=== PATIENT | female | born 1940 | race Caucasian/White ===

== ENCOUNTER 2017-01-06 00:30 | Inpatient (IN) | payer MEDICARE, BC ==
[2017-01-06] MEDS ORDERED: IPRATROPIUM-ALBUTEROL 3 ML NEB INHALATION STA (00:40)
--- NOTE | 2017-01-06 00:49 | ED ---
SOB HPI - General Chief Complaint: Shortness of Breath Stated Complaint: JADEN Time Seen by Provider: 01/06/17 00:35 Source: patient Mode of arrival: EMS Limitations: physical limitation - History of Present Illness Initial Comments: This patient is a 76-year-old woman with history of COPD, who presents with worsening of her respiratory status over the past approximately 3 days. Patient 's family also states that she seems to be at times hallucinating, holding conversations with people who are not in the room. The patient complains of wheezing, dyspnea. She denies having fevers or chills. No chest pain. No change in her baseline cough. No change in bowel movements or urination. no leg pain or swelling. The patient's family does note that her appetite has been decreased over the past week or so. MD Complaint: shortness of breath Onset/Timin -: days(s) Consistency: constant Improves With: nothing Worsens With: nothing Known History Of: COPD Treatments Prior to Arrival: oxygen - Related Data Home Oxygen Therapy: Yes Home Oxygen Amount: 2 Liters Home Medications Medication Instructions Recorded Confirmed Budesonide/Formoterol Fumarate 2 puff INHALATION RT-BID 11/25/15 01/14/16 [Symbicort 80-4.5 Mcg Inhaler] Albuterol Sulfate [Proair Hfa] 2 puff INHALATION RT-Q4H PRN 01/14/16 01/14/16 Tiotropium 18 Mcg/Puff [Spiriva] 1 cap INHALATION RT-DAILY 01/14/16 01/14/16 Previous Rx's Medication Instructions Recorded Azithromycin [Zithromax Tri-Cristi] 500 mg PO DAILY #3 tab 01/15/16 Valsartan [Diovan] 240 mg PO DAILY #30 tab 01/15/16 predniSONE 10 mg PO DAILY #40 tab 01/15/16 Allergies Allergy/AdvReac Type Severity Reaction Status Date / Time codeine AdvReac Nausea Verified 01/06/17 00:32 Review of Systems ROS Statement: Those systems with pertinent positive or pertinent negative responses have been documented in the HPI. ROS Other: All systems not noted in ROS Statement are negative. Constitutional: Reports: weakness. Denies: fever, chills Respiratory: Reports: cough (Baseline), dyspnea Cardiovascular: Denies: chest pain, palpitations, orthopnea, edema, syncope Gastrointestinal: Denies: abdominal pain, vomiting, diarrhea Genitourinary: Denies: dysuria, hematuria Musculoskeletal: Denies: back pain Skin: Denies: rash Neurological: Reports: weakness (Generalized), confusion. Denies: headache Past Medical History Past Medical History: Asthma, COPD, Hypertension Additional Past Medical History / Comment(s): BRONCHITIS, HOME O2 3 LITERS N/C, PNE VACCINE AFTER AGE 65-NOT SURE OF DATE. History of Any Multi-Drug Resistant Organisms: None Reported Past Surgical History: Orthopedic Surgery Additional Past Surgical History / Comment(s): RT ROTATOR CUFF Past Anesthesia/Blood Transfusion Reactions: No Reported Reaction Past Psychological History: No Psychological Hx Reported Smoking Status: Former smoker Past Alcohol Use History: None Reported Past Drug Use History: None Reported - Past Family History Mother Family Medical History: CVA/TIA Additional Family Medical History / Comment(s): AT AGE 88 Father Family Medical History: Myocardial Infarction ([place]) Additional Family Medical History / Comment(s): OF [place] AT AGE 52 General Exam Limitations: physical limitation General appearance: alert, in distress (Patient in mild respiratory distress, being And using accessory muscles), cachectic Head exam: Present: atraumatic, normocephalic Eye exam: Present: normal appearance. Absent: scleral icterus, conjunctival injection ENT exam: Present: mucous membranes dry Neck exam: Present: normal inspection Respiratory exam: Present: wheezes, accessory muscle use, decreased breath sounds, prolonged expiratory. Absent: rales, rhonchi, stridor, chest wall tenderness Cardiovascular Exam: Present: normal rhythm, tachycardia (Rate approximately 108 at my exam), normal heart sounds. Absent: systolic murmur, diastolic murmur , rubs, gallop GI/Abdominal exam: Present: soft. Absent: distended, tenderness, guarding, rebound Extremities exam: Present: normal inspection, normal capillary refill. Absent: pedal edema, calf tenderness Neurological exam: Present: alert Skin exam: Present: warm, dry, intact, normal color. Absent: rash Course Vital Signs 01/06/17 01/06/17 01/06/17 00:33 00:47 00:57 Temperature 99.2 F Pulse Rate 115 H 108 H 112 H Respiratory 32 H Rate Blood Pressure 164/73 O2 Sat by Pulse 91 L Oximetry 01/06/17 01:35 Temperature Pulse Rate 112 H Respiratory 28 H Rate Blood Pressure 163/73 O2 Sat by Pulse 98 Oximetry Medical Decision Making - Lab Data Result diagrams: 01/06/17 00:48 01/06/17 00:48 Lab Results 01/06/17 01/06/17 01/06/17 Range/Units 00:48 00:48 00:48 WBC 5.3 (3.8-10.6) k/uL RBC 3.53 L (3.80-5.40) m/uL Hgb 11.0 L (11.4-16.0) gm/dL Hct 36.2 (34.0-46.0) % MCV 102.4 H (80.0-100.0) fL MCH 31.0 (25.0-35.0) pg MCHC 30.3 L (31.0-37.0) g/dL RDW 13.7 (11.5-15.5) % Plt Count 457 H (150-450) k/uL Neutrophils % 83 % Lymphocytes % 7 % Monocytes % 9 % Eosinophils % 0 % Basophils % 0 % Neutrophils # 4.4 (1.3-7.7) k/uL Lymphocytes # 0.4 L (1.0-4.8) k/uL Monocytes # 0.5 (0-1.0) k/uL Eosinophils # 0.0 (0-0.7) k/uL Basophils # 0.0 (0-0.2) k/uL Macrocytosis Slight PT 9.8 (9.0-12.0) sec INR 1.0 (<1.2) APTT 23.1 (22.0-30.0) sec D-Dimer (<0.60) mg/L FEU VBG pH (7.31-7.41) VBG pCO2 (37-51) mmHg VBG HCO3 (24-28) mmol/L Sodium 141 (137-145) mmol/L Potassium 4.0 (3.5-5.1) mmol/L Chloride 99 (98-107) mmol/L Carbon Dioxide 29 (22-30) mmol/L Anion Gap 13 mmol/L BUN 23 H (7-17) mg/dL Creatinine 0.50 L (0.52-1.04) mg/dL Est GFR (MDRD) Af Amer >60 (>60 ml/min/1.73 sqM) Est GFR (MDRD) Non-Af >60 (>60 ml/min/1.73 sqM) Glucose 308 H (74-99) mg/dL Calcium 9.7 (8.4-10.2) mg/dL Total Bilirubin 0.4 (0.2-1.3) mg/dL AST 24 (14-36) U/L ALT 36 (9-52) U/L Alkaline Phosphatase 116 (38-126) U/L Total Creatine Kinase (30-135) U/L CK-MB (CK-2) (0.0-2.4) ng/mL CK-MB (CK-2) Rel Index Troponin I (0.000-0.034) ng/mL NT-Pro-B Natriuret Pep pg/mL Total Protein 6.7 (6.3-8.2) g/dL Albumin 3.7 (3.5-5.0) g/dL 01/06/17 01/06/17 01/06/17 Range/Units 00:48 00:48 00:48 WBC (3.8-10.6) k/uL RBC (3.80-5.40) m/uL Hgb (11.4-16.0) gm/dL Hct (34.0-46.0) % MCV (80.0-100.0) fL MCH (25.0-35.0) pg MCHC (31.0-37.0) g/dL RDW (11.5-15.5) % Plt Count (150-450) k/uL Neutrophils % % Lymphocytes % % Monocytes % % Eosinophils % % Basophils % % Neutrophils # (1.3-7.7) k/uL Lymphocytes # (1.0-4.8) k/uL Monocytes # (0-1.0) k/uL Eosinophils # (0-0.7) k/uL Basophils # (0-0.2) k/uL Macrocytosis PT (9.0-12.0) sec INR (<1.2) APTT (22.0-30.0) sec D-Dimer 2.45 H (<0.60) mg/L FEU VBG pH 7.30 L (7.31-7.41) VBG pCO2 67 H (37-51) mmHg VBG HCO3 32 H (24-28) mmol/L Sodium (137-145) mmol/L Potassium (3.5-5.1) mmol/L Chloride (98-107) mmol/L Carbon Dioxide (22-30) mmol/L Anion Gap mmol/L BUN (7-17) mg/dL Creatinine (0.52-1.04) mg/dL Est GFR (MDRD) Af Amer (>60 ml/min/1.73 sqM) Est GFR (MDRD) Non-Af (>60 ml/min/1.73 sqM) Glucose (74-99) mg/dL Calcium (8.4-10.2) mg/dL Total Bilirubin (0.2-1.3) mg/dL AST (14-36) U/L ALT (9-52) U/L Alkaline Phosphatase (38-126) U/L Total Creatine Kinase 68 (30-135) U/L CK-MB (CK-2) 2.9 H* (0.0-2.4) ng/mL CK-MB (CK-2) Rel Index 4.3 Troponin I 0.039 H* (0.000-0.034) ng/mL NT-Pro-B Natriuret Pep pg/mL Total Protein (6.3-8.2) g/dL Albumin (3.5-5.0) g/dL 01/06/17 Range/Units 00:48 WBC (3.8-10.6) k/uL RBC (3.80-5.40) m/uL Hgb (11.4-16.0) gm/dL Hct (34.0-46.0) % MCV (80.0-100.0) fL MCH (25.0-35.0) pg MCHC (31.0-37.0) g/dL RDW (11.5-15.5) % Plt Count (150-450) k/uL Neutrophils % % Lymphocytes % % Monocytes % % Eosinophils % % Basophils % % Neutrophils # (1.3-7.7) k/uL Lymphocytes # (1.0-4.8) k/uL Monocytes # (0-1.0) k/uL Eosinophils # (0-0.7) k/uL Basophils # (0-0.2) k/uL Macrocytosis PT (9.0-12.0) sec INR (<1.2) APTT (22.0-30.0) sec D-Dimer (<0.60) mg/L FEU VBG pH (7.31-7.41) VBG pCO2 (37-51) mmHg VBG HCO3 (24-28) mmol/L Sodium (137-145) mmol/L Potassium (3.5-5.1) mmol/L Chloride (98-107) mmol/L Carbon Dioxide (22-30) mmol/L Anion Gap mmol/L BUN (7-17) mg/dL Creatinine (0.52-1.04) mg/dL Est GFR (MDRD) Af Amer (>60 ml/min/1.73 sqM) Est GFR (MDRD) Non-Af (>60 ml/min/1.73 sqM) Glucose (74-99) mg/dL Calcium (8.4-10.2) mg/dL Total Bilirubin (0.2-1.3) mg/dL AST (14-36) U/L ALT (9-52) U/L Alkaline Phosphatase (38-126) U/L Total Creatine Kinase (30-135) U/L CK-MB (CK-2) (0.0-2.4) ng/mL CK-MB (CK-2) Rel Index Troponin I (0.000-0.034) ng/mL NT-Pro-B Natriuret Pep 5500 pg/mL Total Protein (6.3-8.2) g/dL Albumin (3.5-5.0) g/dL - EKG Data -: EKG Interpreted by Nc EKG shows normal: sinus rhythm, axis (Normal), intervals (Normal) Rate: tachycardia (Rate approximately 112 bpm) Interpretation: nonspecific ST-T wave changes, other (Right atrial enlargement.) Disposition Clinical Impression: Acute exacerbation of chronic obstructive airways disease, Acute respiratory acidosis Disposition: ADMITTED IP TO THIS HOSP Condition: Poor Referrals: Joyce Benitez MD [Primary Care Provider] - 1-2 days
[2017-01-06] MEDS ORDERED: predniSONE 20 MG TAB PO STA (01:07)
[2017-01-06 01:22] LABS: VBG PH 7.3 (7.31-7.41)
[2017-01-06 01:35] LABS: ALT 36 U/L (9-52); AST 24 U/L (14-36); Alkaline Phosphatase 116 U/L (38-126); Anion Gap 13 mmol/L; Blood Urea Nitrogen 23 mg/dL (7-17); Calcium 9.7 mg/dL (8.4-10.2); Carbon Dioxide 29 mmol/L (22-30); Chloride 99 mmol/L (98-107); Glucose 308 mg/dL (74-99); Non-African American GFR(MDRD) >60 (>60 ml/min/1.73 sqM); Partial Thromboplastin Time 23.1 sec (22.0-30.0); Prothrombin Time 9.8 sec (9.0-12.0); Sodium 141 mmol/L (137-145); Total Bilirubin 0.4 mg/dL (0.2-1.3); Total Protein 6.7 g/dL (6.3-8.2)
[2017-01-06 01:39] LABS: Basophils % (A) 0 %; CH 32.6; Eosinophils % (A) 0 %; HCT 36.2 % (34.0-46.0); HDW 2.82; Luc % (Auto) 2; Lymphocytes # (A) 0.4 k/uL (1.0-4.8); Lymphocytes % (A) 7 %; MCHC 30.3 g/dL (31.0-37.0); MCV 102.4 fL (80.0-100.0); Macrocytosis Slight; Mean Platelet Volume 7.1; Monocytes # (A) 0.5 k/uL (0-1.0); Monocytes % (A) 9 %; Neutrophils # (A) 4.4 k/uL (1.3-7.7); Neutrophils % (A) 83 %; RBC 3.53 m/uL (3.80-5.40); RDW 13.7 % (11.5-15.5); WBC 5.3 k/uL (3.8-10.6); WBC (Perox) 5.41
[2017-01-06 02:01] LABS: Creatine Kinase MB 2.9 ng/mL (0.0-2.4); Troponin I 0.039 ng/mL (0.000-0.034)
--- NOTE | 2017-01-06 02:17 | XR ---
EXAM: XR Chest, 2 Views CLINICAL HISTORY: Reason: Pain TECHNIQUE: Frontal and lateral views of the chest. COMPARISON: 01/14/2016. FINDINGS: Lungs: Evidence of COPD is again seen. Mild peribronchial cuffing is seen with hazy interstitial markings suggesting mild pulmonary edema. Right basilar atelectasis and/or infiltrates. Pleural space: Probable tiny right pleural effusion. No pneumothorax. Heart: Unremarkable. No cardiomegaly. Mediastinum: Unremarkable. Bones/joints: Osseous structures are unchanged. Osteopenia suggested. Vasculature: Atherosclerotic vascular calcifications involving the aortic arch again seen. Tubes, lines and devices: Overlying monitor leads limited evaluation. IMPRESSION: 1. Evidence of COPD. 2. Mild peribronchial cuffing is with hazy interstitial markings suggesting mild pulmonary edema. 3. Probable tiny right pleural effusion. 4. Right basilar atelectasis and/or infiltrates.
[2017-01-06] MEDS ORDERED: RX INFO: IV CONTRAST WAS GIVEN 1 EACH MISC MISCELLANE PRN (02:20)
[2017-01-06] MEDS: SODIUM CHLORIDE 0.9% 1,000 ML IV SCH (03:08)
--- NOTE | 2017-01-06 03:27 | CT ---
EXAM: CT Angiography Chest With Intravenous Contrast CLINICAL HISTORY: Chest pain TECHNIQUE: Axial computed tomographic angiography images of the chest with intravenous contrast using pulmonary embolism protocol. DLP is 135.80 mGy-cm. This CT exam was performed using one or more of the following dose reduction techniques: automated exposure control, adjustment of the mA and/or kV according to patient size, and/or use of iterative reconstruction technique. MIP reconstructed images were created and reviewed. COMPARISON: No relevant prior studies available. FINDINGS: Pulmonary arteries: Unremarkable. No pulmonary embolism. Aorta: Moderate atherosclerotic vascular calcifications are seen involving the intrathoracic aorta. No thoracic aortic aneurysm. Lungs: Small consolidations with air bronchograms are seen predominantly in the periphery of the right lung concerning for multifocal pneumonia. Moderate emphysematous changes are seen with evidence of COPD. Mild bronchial wall thickening is suggested, which may represent inflammatory small airways disease. A 0.6 cm nodule is seen in the right lower lobe (series 4, image 96). Tiny nodular densities are seen in the periphery of the right lung in a tree-in-bud configuration, likely representing inflammatory versus infectious small airways disease. Dependent atelectasis is seen involving the right lower lobe. Subcentimeter calcified granuloma in the left upper lobe. Next Pleural space: Unremarkable. No significant effusion. No pneumothorax. Heart: Unremarkable. No cardiomegaly. No significant pericardial effusion. No evidence of RV dysfunction. Bones/joints: Degenerative changes. No acute fracture. No dislocation. Soft tissues: Unremarkable. Lymph nodes: Mildly enlarged mediastinal lymph nodes are seen, measuring up to 1.2 cm in short axis, likely reactive. Mildly prominent right hilar lymph nodes, measuring up to 1.1 cm in short axis, which are likely reactive. IMPRESSION: 1. No pulmonary embolism. 2. Small consolidations with air bronchograms predominantly in the periphery of the right lung concerning for multifocal pneumonia. Correlate clinically. Attention on short-term interval follow-up is recommended after treatment to assure resolution. 3. Moderate emphysema with evidence of COPD. 4. Mild bronchial wall thickening, which may represent inflammatory small airways disease. 5. Tiny nodular densities in the periphery of the right lung arranged in a tree-in-bud configuration, likely representing inflammatory versus infectious small airways disease. 6. A 0.6 cm nodule in the right lower lobe. For high-risk patients (smoking history or other known risk factors) initial follow-up chest CT at 6-12 months and if unchanged, 18-24 months. 7. Other findings, as above.
[2017-01-06] MEDS ORDERED: PIPERACILLIN-TAZOBACTAM 3.375 GM in DEXTROSE/WATER 1 50ML.BAG IVPB STA (04:04)
[2017-01-06] MEDS ORDERED: LEVOFLOXACIN 750 MG TAB PO STA (04:05)
[2017-01-06] MEDS: IPRATROPIUM-ALBUTEROL 3 ML NEB INHALATION PRN ×2 (04:41→07:40)
[2017-01-06 07:37] LABS: Glucose,Whole Blood 173 mg/dL (75-99)
[2017-01-06] MEDS: SYMBICORT 80-4.5 MCG INHALER INHALATION SCH ×2 (07:40→08:51)
[2017-01-06] MEDS: IPRATROPIUM-ALBUTEROL 3 ML NEB INHALATION SCH ×2 (07:47→11:17)
[2017-01-06] MEDS ORDERED: IPRATROPIUM 0.5 MG/2.5 ML NEBU INHALATION SCH (08:00)
[2017-01-06] MEDS: INSULIN LISPRO (humaLOG) 300 UNIT/3 ML VIAL SQ SCH ×4 (08:24→22:32)
[2017-01-06] MEDS: HEPARIN SODIUM,PORCINE 5,000 UNIT/ML 1 ML VIAL SQ SCH ×3 (08:25→23:18)
[2017-01-06] MEDS ORDERED: VALSARTAN 80 MG TAB PO SCH (09:00)
[2017-01-06] MEDS ORDERED: predniSONE 20 MG TAB PO SCH (09:00)
[2017-01-06] MEDS: methylPREDNISolone SOD SUCCI 125 MG/2 ML VIAL IV SCH ×4 (09:09→23:18)
--- NOTE | 2017-01-06 11:06 | P.CNPUL ---
History of Present Illness Consult date: 01/06/17 Reason for consult: dyspnea, cough, COPD, hypoxemia, pneumonia, abnormal CXR/CT Chief complaint: Shortness of breath History of present illness: Consult dated 01/06/2017 76-year-old female with history of COPD. She presented to the emergency department with complaints of increasing respiratory difficulty over the past 3 or 4 days prior to admission. In addition, she is got chest congestion and coughing. Producing some phlegm. Does have wheezing. Also acting very confused. No fever no chills. No chest pain. No change in her bowel habits or anything like that. The patient typically sees Dr. Benitez my partner for her chronic lung disease. Before I saw her this morning, the fourth floor called because they were concerned about her situation. I sent to the ICU nurses down there to evaluate her. The patient was doing much better than what was told to us on the phone. She was on all the appropriate medications including DuoNeb Perforomist Pulmicort and steroids. She was laying on her right side. Was not in any distress. We felt the patient could stay on the fourth floor that time. Review of Systems A 12 point review of systems is positive for shortness breath chest congestion coughing minimal phlegm production all of the pulmonary system. The rest of the 12 point review of system is unremarkable. Past Medical History Past Medical History: Asthma, COPD, Hypertension Additional Past Medical History / Comment(s): BRONCHITIS, HOME O2 3 LITERS N/C, PNE VACCINE AFTER AGE 65-NOT SURE OF DATE. History of Any Multi-Drug Resistant Organisms: None Reported Past Surgical History: Orthopedic Surgery Additional Past Surgical History / Comment(s): RT ROTATOR CUFF Past Anesthesia/Blood Transfusion Reactions: No Reported Reaction Smoking Status: Former smoker - Past Family History Mother Family Medical History: CVA/TIA Additional Family Medical History / Comment(s): AT AGE 88 Father Family Medical History: Myocardial Infarction ([place]) Additional Family Medical History / Comment(s): OF [place] AT AGE 52 Medications and Allergies Home Medications Medication Instructions Recorded Confirmed Type Budesonide/Formoterol Fumarate 2 puff INHALATION RT-BID 11/25/15 01/06/17 History [Symbicort 80-4.5 Mcg Inhaler] Albuterol Sulfate [Proair Hfa] 2 puff INHALATION RT-Q4H PRN 01/14/16 01/06/17 History Tiotropium 18 Mcg/Puff [Spiriva] 1 cap INHALATION RT-DAILY 01/14/16 01/06/17 History Valsartan [Diovan] 240 mg PO DAILY #30 tab 01/15/16 01/06/17 Rx Allergies Allergy/AdvReac Type Severity Reaction Status Date / Time codeine AdvReac Nausea Verified 01/06/17 06:54 Physical Exam Osteopathic Statement: *. No significant issues noted on an osteopathic structural exam other than those noted in the History and Physical/Consult. Vitals: Vital Signs Temp Pulse Pulse Resp BP BP Pulse Ox 01/06/17 08:02 108 H 01/06/17 07:45 104 H 01/06/17 06:45 99.4 F 121 H 44 H 178/66 94 L 01/06/17 06:16 98.2 F 121 H 26 H 122/83 93 L 01/06/17 04:50 97 01/06/17 04:41 100 01/06/17 04:26 100 26 H 134/66 93 L 01/06/17 03:09 96 24 150/67 98 01/06/17 01:35 112 H 28 H 163/73 98 01/06/17 00:57 112 H 01/06/17 00:47 108 H 01/06/17 00:33 99.2 F 115 H 32 H 164/73 91 L Intake and Output 01/05/17 01/06/17 01/06/17 22:59 06:59 14:59 Other: Voiding Method Toilet Weight 49.895 kg No acute distress, oriented 3 HEENT examination is unremarkable. Mucous membranes are moist. No oral lesions. Neck supple. Full range of motion. No adenopathy or thyromegaly. Neck veins are flat. Cardiovascular examination reveals regular rhythm rate. S1-S2 normal. No S3 or S4. No discernible murmur. Lungs reveal severely diminished breath sounds. Some expiratory rhonchi. Some very mild expiratory wheezes. No crackles. Breath sounds are equal bilaterally but diminished throughout. Abdomen soft bowel sounds are heard. No masses or tenderness. Extremities are intact. No cyanosis clubbing or edema. Skin is without rash or lesion. Neurologic examination is brief but nonfocal. Results - Laboratory Findings CBC and BMP: 01/06/17 00:48 01/06/17 00:48 PT/INR, D-dimer PT 9.8 sec (9.0-12.0) 01/06/17 00:48 INR 1.0 (<1.2) 01/06/17 00:48 D-Dimer 2.45 mg/L FEU (<0.60) H 01/06/17 00:48 Abnormal lab findings: Abnormal Labs 01/06/17 01/06/17 01/06/17 00:48 00:48 00:48 RBC 3.53 L Hgb 11.0 L MCV 102.4 H MCHC 30.3 L Plt Count 457 H Lymphocytes # 0.4 L D-Dimer VBG pH VBG pCO2 VBG HCO3 BUN 23 H Creatinine 0.50 L Glucose 308 H POC Glucose (mg/dL) CK-MB (CK-2) 2.9 H* Troponin I 0.039 H* 01/06/17 01/06/17 01/06/17 00:48 00:48 04:50 RBC Hgb MCV MCHC Plt Count Lymphocytes # D-Dimer 2.45 H VBG pH 7.30 L VBG pCO2 67 H VBG HCO3 32 H BUN Creatinine Glucose POC Glucose (mg/dL) CK-MB (CK-2) Troponin I 0.054 H* 01/06/17 06:51 RBC Hgb MCV MCHC Plt Count Lymphocytes # D-Dimer VBG pH VBG pCO2 VBG HCO3 BUN Creatinine Glucose POC Glucose (mg/dL) 173 H CK-MB (CK-2) Troponin I - Diagnostic Findings Chest x-ray: image reviewed CT scan - chest: image reviewed (X-rays labs and medications are reviewed.) Assessment and Plan (1) Hypertension Status: Acute (2) Pneumonia Status: Acute (3) Hypoxemia Status: Acute Plan: Plan dated 01/06/2017 The patient's x-rays and CAT scans are reviewed. She likely has an inflammatory /infectious process in the right lung. The patient should be on appropriate antibiotics as well as steroids and DuoNeb Perforomist and Pulmicort. I'll make sure all of that has been added. Additional recommendations and suggestions are forthcoming. We'll continue to follow. Prognosis is guarded. Time with Patient: Greater than 30
[2017-01-06] MEDS: BUDESONIDE 1 MG/2 ML NEBU INHALATION SCH ×2 (11:16→19:09)
[2017-01-06] MEDS ORDERED: ALPRAZolam 0.5 MG TAB PO PRN (11:59)
[2017-01-06 12:25] LABS: Glucose,Whole Blood 141 mg/dL (75-99)
[2017-01-06] MEDS: LEVALBUTEROL NEB 1.25 MG/3 ML AMP INHALATION SCH ×2 (12:45→19:09)
[2017-01-06] MEDS: IPRATROPIUM 0.5 MG/2.5 ML NEBU INHALATION SCH ×3 (12:46→19:09)
--- NOTE | 2017-01-06 14:02 | CONS ---
CONSULTATION Mrs. Banuelos is a 76-year-old female with known history of chronic obstructive lung disease who is followed by Dr. Benitez on a regular basis. Prior history of smoking, which she stopped 5 years ago, who presented with symptoms worse dyspnea and cough productive of sputum. Cardiology consultation was requested because of episode of SVT that occurred after she received her updraft. The patient denies any prior cardiac history. She has no chest pain. She has no dizziness. She has no significant palpitation in the past. No peripheral edema. No clear PND nor orthopnea. She came in and she was in sinus tachycardia and subsequently had an episode of SVT that was of self-terminated and occurred shortly after she got her updraft. Her coronary risk factors are remarkable for prior history of hypertension. She is nondiabetic. She stopped smoking about 5 years ago. Her lipid profile is not available to me. MEDICATION: Home medications include: 1. Diovan 160 mg daily. 2. Spiriva. 3. ProAir. REVIEW OF SYSTEMS: RESPIRATORY system: She has history of chronic obstructive lung disease and history of cough and wheezing. GI system: No recent GI bleeding and she had remote history of ulcer. system: No dysuria or hematuria. Nervous system: No stroke or seizure. PHYSICAL EXAMINATION: Blood pressure running in the 120s to 170s with a heart rate in the low 100s. HEAD: Normocephalic. Eyes: Sclerae anicteric. Neck good upstroke. No bruit. Lungs with decreased air exchange bilaterally. HEART: Regular rate and rhythm, S1, S2. No S3 with systolic murmur at the base. Ejection systolic type, no diastolic murmur. ABDOMEN: Soft, nontender. Positive bowel sounds. No megaly. EXTREMITIES: No edema. LAB DATA: Lab data revealed troponin 0.039 and 0.054. NT proBNP of 5500. BUN and creatinine 23 and 0.5. D-dimer of 2.4. Her hemoglobin of 11. Her EKG revealed a sinus tachycardia with evidence of right atrial abnormality. Chest CT angiography revealed no evidence of pulmonary embolism with evidence of moderate emphysema with COPD. Her chest x-ray revealed a small pleural effusion. The rhythm strip revealed evidence of supraventricular tachycardia. IMPRESSION: 1. Exacerbation of chronic obstructive pulmonary disease with hypoxemia. 2. History of hypertension. 3. Paroxysmal supraventricular tachycardia, AV octavia reentry tachycardia, most likely exacerbated by the updraft. RECOMMENDATION: From the cardiac standpoint, I will cut down the dose of her valsartan and I will add Cardizem to her regimen, her thyroid function tests will be evaluated and we will obtain echocardiogram with Doppler. Supraventricular tachyarrhythmia is quite common in people with severe COPD. If she has no further episodes, then we will continue clinical observation. Otherwise, if she has significant recurrent episode, she will need to be evaluated for ablation. Thank you for this consult. We will follow with you. MMODL / IJN: [id number] /
[2017-01-06 14:23] LABS: Hemoglobin A1C 4.7 % (4.2-6.1)
[2017-01-06 15:13] LABS: Appearance,Urine Clear (Clear); Bilirubin,Urine Negative (Negative); Glucose,Urine (UA) 1+ (Negative); Ketones,Urine Negative (Negative); Leukocyte Esterase,Urine Negative (Negative); Mucus,Urine Rare /hpf; Nitrite,Urine Negative (Negative); PH, Urine 6.5 (5.0-8.0); Particle Count 7425; Protein,Urine 3+ (Negative); RBC,Urine 8 /hpf (0-5); Squamous Epithelial Cell,Urine 7 /hpf (0-4); UA Billing (MACRO vs. MICRO) MICRO; Urobilinogen,Urine <2.0 mg/dL (<2.0); WBC,Urine 5 /hpf (0-5)
[2017-01-06] MEDS: guaiFENesin SYRUP 100MG/5ML 200 MG/10 ML CUP PO PRN (15:22)
[2017-01-06 15:24] LABS: Specific Gravity,Urine >1.050 (1.001-1.035)
[2017-01-06] MEDS: DILTIAZEM ORAL 30 MG TAB PO SCH ×2 (15:24→22:33)
[2017-01-06] MEDS: AZITHROMYCIN 500 MG in SODIUM CHLORIDE 0.9% 250 ML IVPB SCH (15:58)
--- NOTE | 2017-01-06 16:16 | HP ---
HISTORY AND PHYSICAL DATE OF SERVICE: 01/06/2017. CHIEF COMPLAINTS: Shortness of breath. HISTORY OF PRESENT ILLNESS: This 76-year-old woman with a past medical history of multiple medical problems of asthma, COPD, hypertension being followed by Dr. Benitez in the outpatient setting is complaining of shortness of breath over the past 4 days. Patient apparently smoked about 2 years ago. The patient also has some cough and sputum also. The patient seems to be hallucinating and holding conversation with people who were not present and patient came to [facility]. Patient had features of COPD acute exacerbation, acute hypoxic respiratory failure. Also the patient admitted for further evaluation and treatment. Chest x-ray CT was also done. The CTA showed no pulmonary embolism and consultations with air bronchogram was also noted. The patient admitted for further evaluation and treatment. After admission the patient received multiple bronchodilator treatment. Subsequently patient also had tachycardia indicative of supraventricular tachycardia. The patient is extremely anxious as well. PAST MEDICAL HISTORY: History of asthma, COPD, history hypertension, history bronchitis, chronic hypoxic respiratory failure. MEDICATIONS: Prior to admission include: 1. Diovan 160 mg p.o. daily. 2. Spiriva one puff a day. 3. Symbicort 160/4.5, 2 puffs b.i.d. 4. ProAir HFA 2 puffs q.4h p.r.n. ALLERGIES: CODEINE. FAMILY HISTORY: History of CVA, TIA, diabetes, age 89. SOCIAL HISTORY: History of smoking previously. No history of alcohol intake. No history of current smoking. REVIEW OF SYSTEMS: ENT: No diminished vision. No diminished hearing. CARDIOVASCULAR: As mentioned earlier. RESPIRATORY: As mentioned. GI: No nausea. : No dysuria. NERVOUS SYSTEM: No numbness or weakness. ALLERGY/IMMUNOLOGY: As mentioned earlier. MUSCULOSKELETAL: As mentioned earlier HEMATOLOGY: No history of anemia. ENDOCRINE: No history of diabetes, hypothyroid. CONSTITUTIONAL: As mentioned earlier. DERMATOLOGY: Negative. RHEUMATOLOGY: Negative. PSYCHIATRY: As mentioned earlier. PHYSICAL EXAMINATION: Alert and oriented. Pulse 207, blood pressure 178/82, respirations are 44, temperature 98.4, pulse ox 94% on 4 L. HEENT: Conjunctivae normal. Oral mucosa moist. NECK: Accessory muscles of respiration are acting. CARDIOVASCULAR: S1, S2. Tachycardic. No S3, no S4. RESPIRATORY: Breath sounds diminished in the bases. Bilateral scattered rhonchi and crackles. Expiratory wheezing also present. ABDOMEN: Soft, nontender. No mass palpable. LEGS: No edema, no swelling. NERVOUS SYSTEM: Higher functions as mentioned earlier. Moves all four limbs. No focal motor deficits. LYMPHATICS: No lymphadenopathy in the neck, axillae or groin. SKIN: No rash, ulcer or bleeding. LABS: At this time shows WBC 5.3, hemoglobin 11 and D-dimer is 2.45. Otherwise glucose noted. ASSESSMENT: 1. Chronic obstructive pulmonary disease acute exacerbation with acute tracheobronchitis, early bronchopneumonia. 2. Troponin 0.039 indeterminate. 3. Acute hypoxic respiratory failure. 4. Anemia. 5. Chronic obstructive pulmonary disease, asthma. 6. Hypertension. 7. History of bronchitis. 8. Chronic hypoxic respiratory failure. 9. Remote history of nicotine dependence. RECOMMENDATIONS AND DISCUSSION: In this 76-year-old woman who presented with multiple complex medical issues, will monitor the patient closely. Continue the current management. Will optimize the bronchodilator treatment. Change albuterol to Xopenex if available. Otherwise I recommend continue IV steroids, broad-spectrum IV antibiotics. Prognosis guarded because of multiple complex medical issues and further recommendations to follow. Will also add Rocephin and Zithromax and closely follow with Dr. Diop. Guarded prognosis. Further recommendations to follow. MMODL / IJN: [id number] /
[2017-01-06 17:03] LABS: Glucose,Whole Blood 127 mg/dL (75-99)
[2017-01-06] MEDS ORDERED: FORMOTEROL FUMARATE 20 MCG/2 ML NEBU INHALATION SCH (20:00)
[2017-01-06 21:00] LABS: Glucose,Whole Blood 136 mg/dL (75-99)
[2017-01-06] MEDS: guaiFENesin 600 MG TABLET.ER PO SCH (22:31)
[2017-01-07] MEDS: SODIUM CHLORIDE 0.9% 1,000 ML IV SCH (02:55)
[2017-01-07] MEDS: methylPREDNISolone SOD SUCCI 125 MG/2 ML VIAL IV SCH ×2 (05:52→12:42)
[2017-01-07 07:49] LABS: Glucose,Whole Blood 187 mg/dL (75-99)
[2017-01-07] MEDS: BUDESONIDE 1 MG/2 ML NEBU INHALATION SCH ×2 (08:10→19:07)
[2017-01-07] MEDS: IPRATROPIUM 0.5 MG/2.5 ML NEBU INHALATION SCH ×4 (08:13→19:07)
[2017-01-07] MEDS: LEVALBUTEROL NEB 1.25 MG/3 ML AMP INHALATION SCH ×3 (08:13→19:07)
[2017-01-07] MEDS: DILTIAZEM ORAL 30 MG TAB PO SCH ×3 (08:30→21:51)
[2017-01-07] MEDS: HEPARIN SODIUM,PORCINE 5,000 UNIT/ML 1 ML VIAL SQ SCH ×3 (08:30→23:41)
[2017-01-07] MEDS: INSULIN LISPRO (humaLOG) 300 UNIT/3 ML VIAL SQ SCH ×4 (08:30→21:51)
[2017-01-07] MEDS: guaiFENesin 600 MG TABLET.ER PO SCH ×2 (08:31→21:51)
[2017-01-07] MEDS: AZITHROMYCIN 500 MG in SODIUM CHLORIDE 0.9% 250 ML IVPB SCH (08:35)
[2017-01-07 09:12] LABS: Basophils % (A) 0 %; CH 31.5; Eosinophils % (A) 0 %; HCT 35.3 % (34.0-46.0); HDW 2.82; HGB 11.1 gm/dL (11.4-16.0); Hypochromasia Slight; Luc # (Auto) 0.09; Luc % (Auto) 2; Lymphocytes # (A) 0.4 k/uL (1.0-4.8); Lymphocytes % (A) 8 %; MCH 32.2 pg (25.0-35.0); MCHC 31.6 g/dL (31.0-37.0); MCV 102.2 fL (80.0-100.0); Macrocytosis Slight; Mean Platelet Volume 6.9; Monocytes # (A) 0.3 k/uL (0-1.0); Monocytes % (A) 6 %; Neutrophils # (A) 4.2 k/uL (1.3-7.7); Neutrophils % (A) 83 %; RBC 3.46 m/uL (3.80-5.40); WBC 5.1 k/uL (3.8-10.6); WBC (Perox) 5.45
[2017-01-07 09:23] LABS: Anion Gap 8 mmol/L; Blood Urea Nitrogen 34 mg/dL (7-17); Calcium 9.8 mg/dL (8.4-10.2); Carbon Dioxide 32 mmol/L (22-30); Chloride 101 mmol/L (98-107); Glucose 195 mg/dL (74-99); Non-African American GFR(MDRD) >60 (>60 ml/min/1.73 sqM); Potassium 4.8 mmol/L (3.5-5.1); Sodium 141 mmol/L (137-145)
[2017-01-07] MEDS: VALSARTAN 160 MG TAB PO SCH (09:32)
--- NOTE | 2017-01-07 10:53 | ECHOF ---
Referral Reason:svt MEASUREMENTS -------- HEIGHT: 154.9 cm WEIGHT: 49.9 kg BP: 129/60 IVSd: 1.0 cm (0.6 - 1.1) LVIDd: 3.4 cm (3.9 - 5.3) LVPWd: 1.2 cm (0.6 - 1.1) IVSs: 1.5 cm LVIDs: 2.3 cm LVPWs: 1.3 cm Ao Diam: 3.1 cm (2.0 - 3.7) AV Cusp: 2.1 cm (1.5 - 2.6) LA Diam: 2.8 cm (2.7 - 3.8) MV EXCURSION: 11.844 mm (> 18.000) MV EF SLOPE: 173 mm/s (70 - 150) EPSS: 1.7 cm MV E Emir: 0.68 m/s MV DecT: 159 ms MV A Emir: 0.67 m/s MV E/A Ratio: 1.01 RAP: 5.00 mmHg RVSP: 21.99 mmHg FINDINGS -------- Sinus rhythm. This was a technically difficult study with suboptimal views. Pt has severe COPD. Images taken from subcoastals. The left ventricular size is normal. There is borderline concentric left ventricular hypertrophy. Overall left ventricular systolic function is normal with, an EF between 55 - 60 %. The right ventricle is normal in size and function. The left atrium is normal in size. The right atrium is normal in size. The aortic valve is trileaflet, and appears structurally normal. No aortic stenosis or regurgitation. The mitral valve leaflets are mildly thickened. There is trace mitral regurgitation. Trace tricuspid regurgitation present. The right ventricular systolic pressure, as measured by Doppler, is 21.99mmHg. Pulmonic valve appears structurally normal. The aortic root size is normal. Normal inferior vena cava with normal inspiratory collapse consistent with estimated right atrial pressure of 5 mmHg. The pericardium is normal. CONCLUSIONS -------- 1. Sinus rhythm. 2. The aortic valve is trileaflet, and appears structurally normal. No aortic stenosis or regurgitation. 3. The mitral valve leaflets are mildly thickened. 4. There is trace mitral regurgitation. 5. Trace tricuspid regurgitation present. 6. The right ventricular systolic pressure, as measured by Doppler, is 21.99mmHg. 7. Pulmonic valve appears structurally normal. 8. The aortic root size is normal. 9. Normal inferior vena cava with normal inspiratory collapse consistent with estimated right atrial pressure of 5 mmHg. 10. The pericardium is normal. 11. This was a technically difficult study with suboptimal views. 12. Pt has severe COPD. Images taken from subcoastals. 13. The left ventricular size is normal. 14. There is borderline concentric left ventricular hypertrophy. 15. Overall left ventricular systolic function is normal with, an EF between 55 - 60 %. 16. The right ventricle is normal in size and function. 17. The left atrium is normal in size. 18. The right atrium is normal in size. WATCH MECHANIC: Suzan Davis RDCS
--- NOTE | 2017-01-07 11:54 | XR ---
EXAMINATION TYPE: XR chest 2V DATE OF EXAM: 01/07/2017 COMPARISON: 01/06/2017 HISTORY: 76-year-old female follow-up pneumonia TECHNIQUE: Frontal and lateral views FINDINGS: Heart is normal size. There are scattered calcifications within the aorta. Mild diffuse interstitial prominence and hyperinflation. There is patchy peripheral right basilar opacity relatively unchanged. No significant pleural effusion. IMPRESSION: COPD with similar peripheral right basilar infiltrate that could represent pneumonia in the correct c linical setting.
--- NOTE | 2017-01-07 12:13 | P.PN ---
<Savanna Serrano M - Last Filed: 01/07/17 11:53> Subjective Progress Note Date: 01/07/17 Principal diagnosis: Dyspnea, cough, COPD, hypoxemia This is a 76-year-old female patient with past medical history of COPD that presented to the emergency department on 01/06/2017 with 3 day history worsening dyspnea and wheezing. Patient was also noted by her family to be hallucinating and talking to people who were not present in the room. She denied having fevers or chills, chest pain, no increased cough or significant sputum production. No significant swelling in her legs. But the family did note decrease in her appetite for the previous week. On presentation she was also slightly tachycardic, with low-grade fevers and tachypneic with a rate in the low 30s. She was placed on BiPAP nontender support in the emergency room for a brief amount of time which was subsequently weaned off. Patient is currently tolerating nasal cannula at 2 L/m with oxygen saturation around 99%. No further febrile episodes since admission. Sounds are diminished bilaterally , with bronchospastic cough. Patient's daughter stated that her mother had an episode of tachycardia with a rate of 200 bpm today during Perforomist nebulizer treatments. That was stopped and the heart rate did return to normal and is currently at 88 BPM. She is resting in bed comfortably, with no signs of acute distress. Unable to bring up , but no wheezes, no rhonchi, no rales. Objective - Vital Signs Vital signs: Vital Signs Temp 99.3 F 01/07/17 07:00 Pulse 88 01/07/17 08:29 Resp 16 01/07/17 07:00 BP 166/80 01/07/17 07:00 Pulse Ox 99 01/07/17 08:13 Intake & Output 01/06/17 01/07/17 01/07/17 18:59 06:59 18:59 Intake Total 690 Output Total 500 Balance 190 Intake: Intake, IV Titration 400 Amount Azithromycin 500 mg In 250 Sodium Chloride 0.9% 250 ml @ 125 mls/hr IVPB DAILY [facility] Rx#:[id number] Sodium Chloride 0.9% 1, 100 000 ml @ 20 mls/hr IV . Q24H [facility] Rx#:[id number] cefTRIAXone 1,000 mg In 50 Sodium Chloride 0.9% 50 ml @ 100 mls/hr IVPB Q24HR [facility] Rx#:[id number] Oral 290 Output: Urine 500 Other: Voiding Method Toilet Bedside Commode # Voids 1 - Exam No acute distress, oriented 3 HEENT examination is unremarkable. Mucous membranes are moist. No oral lesions. Neck supple. Full range of motion. No adenopathy or thyromegaly. Neck veins are flat. Cardiovascular examination reveals regular rhythm rate. S1-S2 normal. No S3 or S4. No discernible murmur. Lungs reveal severely diminished breath sounds. Some very mild expiratory wheezes. No crackles. Breath sounds are equal bilaterally but diminished throughout. Abdomen soft bowel sounds are heard. No masses or tenderness. Extremities are intact. No cyanosis clubbing or edema. Skin is without rash or lesion. Neurologic examination is brief but nonfocal. - Labs CBC & Chem 7: 01/07/17 08:28 01/07/17 08:28 Labs: Abnormal Lab Results - Last 24 Hours (Table) 01/06/17 01/06/17 01/06/17 Range/Units 12:06 14:38 16:54 RBC (3.80-5.40) m/uL Hgb (11.4-16.0) gm/dL MCV (80.0-100.0) fL Plt Count (150-450) k/uL Lymphocytes # (1.0-4.8) k/uL Carbon Dioxide (22-30) mmol/L BUN (7-17) mg/dL Glucose (74-99) mg/dL POC Glucose (mg/dL) 141 H 127 H (75-99) mg/dL Ur Specific [place] >1.050 H (1.001-1.035) Urine Protein 3+ H (Negative) Urine Glucose (UA) 1+ H (Negative) Urine Blood Moderate H (Negative) Urine RBC 8 H (0-5) /hpf Ur Squamous Epith Cells 7 H (0-4) /hpf Hyaline Casts 6 H (0-2) /lpf Urine Mucus Rare H (None) /hpf 01/06/17 01/07/17 01/07/17 Range/Units 20:58 07:31 08:28 RBC 3.46 L (3.80-5.40) m/uL Hgb 11.1 L (11.4-16.0) gm/dL MCV 102.2 H (80.0-100.0) fL Plt Count 495 H (150-450) k/uL Lymphocytes # 0.4 L (1.0-4.8) k/uL Carbon Dioxide (22-30) mmol/L BUN (7-17) mg/dL Glucose (74-99) mg/dL POC Glucose (mg/dL) 136 H 187 H (75-99) mg/dL Ur Specific [place] (1.001-1.035) Urine Protein (Negative) Urine Glucose (UA) (Negative) Urine Blood (Negative) Urine RBC (0-5) /hpf Ur Squamous Epith Cells (0-4) /hpf Hyaline Casts (0-2) /lpf Urine Mucus (None) /hpf 01/07/17 Range/Units 08:28 RBC (3.80-5.40) m/uL Hgb (11.4-16.0) gm/dL MCV (80.0-100.0) fL Plt Count (150-450) k/uL Lymphocytes # (1.0-4.8) k/uL Carbon Dioxide 32 H (22-30) mmol/L BUN 34 H (7-17) mg/dL Glucose 195 H (74-99) mg/dL POC Glucose (mg/dL) (75-99) mg/dL Ur Specific [place] (1.001-1.035) Urine Protein (Negative) Urine Glucose (UA) (Negative) Urine Blood (Negative) Urine RBC (0-5) /hpf Ur Squamous Epith Cells (0-4) /hpf Hyaline Casts (0-2) /lpf Urine Mucus (None) /hpf Microbiology - Last 24 Hours (Table) 01/06/17 00:48 Blood Culture - Preliminary Blood No Growth after 24 hours Assessment and Plan Plan: Assessment: #1. Acute community-acquired pneumonia. #2. Acute on chronic hypoxic respiratory failure. Wears home O2 at 3 L nasal cannula #3. History of COPD, on Symbicort and Spiriva maintenance inhalers at home #4. History of asthma #5. Acute paroxysmal supraventricular tachycardia, cardiology is following. Plan: Continue patient on Rocephin, and Zithromax for antibiotic coverage, IV steroids , DuoNeb and Pulmicort nebulizers. Perforomist was discontinued as it was thought to be the cause of her episode of SVT. Continue GI and DVT prophylaxis. Chest x-ray from 01/07/2017 shows COPD with similar right basilar infiltrates that could possibly represent pneumonia. Continue to follow. I performed a history & physical examination of the patient and discussed their management with my nurse practitioner, Savanna Serrano. I reviewed the nurse practitioner's note and agree with the documented findings and plan of care. <JosianejohnRussel - Last Filed: 01/07/17 13:57> Objective - Vital Signs Vital signs: Vital Signs Temp 99.3 F 01/07/17 07:00 Pulse 96 01/07/17 12:16 Resp 16 01/07/17 07:00 BP 166/80 01/07/17 07:00 Pulse Ox 99 01/07/17 08:13 Intake & Output 01/06/17 01/07/17 01/07/17 18:59 06:59 18:59 Intake Total 690 240 Output Total 500 Balance 190 240 Intake: Intake, IV Titration 400 Amount Azithromycin 500 mg In 250 Sodium Chloride 0.9% 250 ml @ 125 mls/hr IVPB DAILY [facility] Rx#:[id number] Sodium Chloride 0.9% 1, 100 000 ml @ 20 mls/hr IV . Q24H [facility] Rx#:[id number] cefTRIAXone 1,000 mg In 50 Sodium Chloride 0.9% 50 ml @ 100 mls/hr IVPB Q24HR [facility] Rx#:[id number] Oral 290 240 Output: Urine 500 Other: Voiding Method Toilet Bedside Commode # Voids 1 - Labs CBC & Chem 7: 01/07/17 08:28 01/07/17 08:28 Labs: Abnormal Lab Results - Last 24 Hours (Table) 01/06/17 01/06/17 01/06/17 Range/Units 14:38 16:54 20:58 RBC (3.80-5.40) m/uL Hgb (11.4-16.0) gm/dL MCV (80.0-100.0) fL Plt Count (150-450) k/uL Lymphocytes # (1.0-4.8) k/uL Carbon Dioxide (22-30) mmol/L BUN (7-17) mg/dL Glucose (74-99) mg/dL POC Glucose (mg/dL) 127 H 136 H (75-99) mg/dL Ur Specific [place] >1.050 H (1.001-1.035) Urine Protein 3+ H (Negative) Urine Glucose (UA) 1+ H (Negative) Urine Blood Moderate H (Negative) Urine RBC 8 H (0-5) /hpf Ur Squamous Epith Cells 7 H (0-4) /hpf Hyaline Casts 6 H (0-2) /lpf Urine Mucus Rare H (None) /hpf 01/07/17 01/07/17 01/07/17 Range/Units 07:31 08:28 08:28 RBC 3.46 L (3.80-5.40) m/uL Hgb 11.1 L (11.4-16.0) gm/dL MCV 102.2 H (80.0-100.0) fL Plt Count 495 H (150-450) k/uL Lymphocytes # 0.4 L (1.0-4.8) k/uL Carbon Dioxide 32 H (22-30) mmol/L BUN 34 H (7-17) mg/dL Glucose 195 H (74-99) mg/dL POC Glucose (mg/dL) 187 H (75-99) mg/dL Ur Specific [place] (1.001-1.035) Urine Protein (Negative) Urine Glucose (UA) (Negative) Urine Blood (Negative) Urine RBC (0-5) /hpf Ur Squamous Epith Cells (0-4) /hpf Hyaline Casts (0-2) /lpf Urine Mucus (None) /hpf 01/07/17 Range/Units 12:23 RBC (3.80-5.40) m/uL Hgb (11.4-16.0) gm/dL MCV (80.0-100.0) fL Plt Count (150-450) k/uL Lymphocytes # (1.0-4.8) k/uL Carbon Dioxide (22-30) mmol/L BUN (7-17) mg/dL Glucose (74-99) mg/dL POC Glucose (mg/dL) 137 H (75-99) mg/dL Ur Specific [place] (1.001-1.035) Urine Protein (Negative) Urine Glucose (UA) (Negative) Urine Blood (Negative) Urine RBC (0-5) /hpf Ur Squamous Epith Cells (0-4) /hpf Hyaline Casts (0-2) /lpf Urine Mucus (None) /hpf Microbiology - Last 24 Hours (Table) 01/06/17 00:48 Blood Culture - Preliminary Blood No Growth after 24 hours Assessment and Plan Plan: I am seeing this patient today in a follow-up. As the joint evaluation that was done with the nurse practitioner. The patient is improving. The patient is less short of breath. She is currently being treated for an acute COPD exacerbation. She also had a limited Coumadin acquired pneumonia. SVT was also noted that the recovered and this was essentially drug induced. We'll start tapering steroids as of tomorrow and will continue to follow. For further details, please refer to the dictation that was done above. This was a joint evaluation.
[2017-01-07 12:43] LABS: Glucose,Whole Blood 137 mg/dL (75-99)
--- NOTE | 2017-01-07 13:08 | P.PN ---
Subjective Progress Note Date: 01/07/17 Mrs. Banuelos is a 76-year-old female with past medical history significant for COPD on home oxygen. She quit smoking 5 years ago. She presented to the hospital with complaints of worsening dyspnea and productive cough. We have been asked to see the patient for an episode of SVT that occurred after she received an updraft treatment yesterday. Medication adjustments made yesterday to decrease valsartan and add cardizem PO. TSH 0.825, blood pressure 166/80 with heart rate 88. 2D echo complete and reveals preserved LV function with EF 55-60% with mild LVH. Telemetry tracings reveal sinus mechanism with episodes of tachycardia with no SVT or arrhythmia. Objective - Vital Signs Vital signs: Vital Signs Temp 99.3 F 01/07/17 07:00 Pulse 88 01/07/17 08:29 Resp 16 01/07/17 07:00 BP 166/80 01/07/17 07:00 Pulse Ox 99 01/07/17 08:13 Intake & Output 01/06/17 01/07/17 01/07/17 18:59 06:59 18:59 Intake Total 690 Output Total 500 Balance 190 Intake: Intake, IV Titration 400 Amount Azithromycin 500 mg In 250 Sodium Chloride 0.9% 250 ml @ 125 mls/hr IVPB DAILY [facility] Rx#:[id number] Sodium Chloride 0.9% 1, 100 000 ml @ 20 mls/hr IV . Q24H [facility] Rx#:[id number] cefTRIAXone 1,000 mg In 50 Sodium Chloride 0.9% 50 ml @ 100 mls/hr IVPB Q24HR [facility] Rx#:[id number] Oral 290 Output: Urine 500 Other: Voiding Method Toilet Bedside Commode # Voids 1 - Exam GENERAL: Well-appearing, well-nourished and in no acute distress. NECK: Supple without JVD or thyromegaly. LUNGS: Course rhonchi with diminished air entry. No wheezes or rales. HEART: Regular rate and rhythm without murmur, rubs or gallops. S1 and S2 heard. EXTREMITIES: Normal range of motion, no edema. No clubbing or cyanosis. Peripheral pulses intact and strong. - Labs CBC & Chem 7: 01/07/17 08:28 01/07/17 08:28 Labs: Abnormal Lab Results - Last 24 Hours (Table) 01/06/17 01/06/17 01/06/17 Range/Units 12:06 14:38 16:54 RBC (3.80-5.40) m/uL Hgb (11.4-16.0) gm/dL MCV (80.0-100.0) fL Plt Count (150-450) k/uL Lymphocytes # (1.0-4.8) k/uL Carbon Dioxide (22-30) mmol/L BUN (7-17) mg/dL Glucose (74-99) mg/dL POC Glucose (mg/dL) 141 H 127 H (75-99) mg/dL Ur Specific [place] >1.050 H (1.001-1.035) Urine Protein 3+ H (Negative) Urine Glucose (UA) 1+ H (Negative) Urine Blood Moderate H (Negative) Urine RBC 8 H (0-5) /hpf Ur Squamous Epith Cells 7 H (0-4) /hpf Hyaline Casts 6 H (0-2) /lpf Urine Mucus Rare H (None) /hpf 01/06/17 01/07/17 01/07/17 Range/Units 20:58 07:31 08:28 RBC 3.46 L (3.80-5.40) m/uL Hgb 11.1 L (11.4-16.0) gm/dL MCV 102.2 H (80.0-100.0) fL Plt Count 495 H (150-450) k/uL Lymphocytes # 0.4 L (1.0-4.8) k/uL Carbon Dioxide (22-30) mmol/L BUN (7-17) mg/dL Glucose (74-99) mg/dL POC Glucose (mg/dL) 136 H 187 H (75-99) mg/dL Ur Specific [place] (1.001-1.035) Urine Protein (Negative) Urine Glucose (UA) (Negative) Urine Blood (Negative) Urine RBC (0-5) /hpf Ur Squamous Epith Cells (0-4) /hpf Hyaline Casts (0-2) /lpf Urine Mucus (None) /hpf 01/07/17 Range/Units 08:28 RBC (3.80-5.40) m/uL Hgb (11.4-16.0) gm/dL MCV (80.0-100.0) fL Plt Count (150-450) k/uL Lymphocytes # (1.0-4.8) k/uL Carbon Dioxide 32 H (22-30) mmol/L BUN 34 H (7-17) mg/dL Glucose 195 H (74-99) mg/dL POC Glucose (mg/dL) (75-99) mg/dL Ur Specific [place] (1.001-1.035) Urine Protein (Negative) Urine Glucose (UA) (Negative) Urine Blood (Negative) Urine RBC (0-5) /hpf Ur Squamous Epith Cells (0-4) /hpf Hyaline Casts (0-2) /lpf Urine Mucus (None) /hpf Microbiology - Last 24 Hours (Table) 01/06/17 00:48 Blood Culture - Preliminary Blood No Growth after 24 hours Assessment and Plan Plan: ASSESSMENT 1. Acute exacerbation of COPD with hypoxemia 2. Paroxysmal supraventricular tachycardia, AV octavia reentry tachycardia, most likely exacerbated by updraft treatment 3. Essential hypertension PLAN From the cardiac standpoint, continue with current medications as previously ordered. Continue with cardiac telemetry monitoring and medical management. Further recommendations will be based upon clinical course. We will continue to follow with her. Nurse Practitioner note has been reviewed, I agree with a documented findings and plan of care. Patient was seen and examined.
--- NOTE | 2017-01-07 17:08 | P.PN ---
Subjective Progress Note Date: 01/07/17 Date of service 01/07/2017 Progress note being dictated for Dr. Ledbetter. Interval history: This a 76-year-old female admitted with acute COPD exacerbation with tracheobronchitis, early bronchial pneumonia, acute hypoxic respiratory failure and multiple other medical issues. Maintained on IV steroids, nebulized bronchodilators and IV antibiotics. Breathing slowly improving. Nonproductive cough. Chest x-ray reporting right basilar opacity, unchanged. Afebrile, T-max 99.3 oral.. Objective - Vital Signs Vital signs: Vital Signs Temp 98.7 F 01/07/17 15:00 Pulse 85 01/07/17 15:22 Resp 16 01/07/17 15:00 BP 171/82 01/07/17 15:00 Pulse Ox 99 01/07/17 15:12 Intake & Output 01/06/17 01/07/17 01/07/17 18:59 06:59 18:59 Intake Total 690 480 Output Total 500 Balance 190 480 Intake: Intake, IV Titration 400 Amount Azithromycin 500 mg In 250 Sodium Chloride 0.9% 250 ml @ 125 mls/hr IVPB DAILY [facility] Rx#:[id number] Sodium Chloride 0.9% 1, 100 000 ml @ 20 mls/hr IV . Q24H [facility] Rx#:[id number] cefTRIAXone 1,000 mg In 50 Sodium Chloride 0.9% 50 ml @ 100 mls/hr IVPB Q24HR [facility] Rx#:[id number] Oral 290 480 Output: Urine 500 Other: Voiding Method Toilet Bedside Commode # Voids 1 3 # Bowel Movements 0 - Exam PHYSICAL EXAM: VITAL SIGNS: [As above] GENERAL: Sitting up in bed, no acute distress HEENT: Conjunctivae normal. eyes normal. NECK: No JVD. No thyroid enlargement. No LNs CARDIOVASCULAR: S1, S2 muffled. No murmur RESPIRATION: Breath sounds diminished in the bases. Scattered rhonchi, no crackles. Bilateral mild Expiratory wheezes. ABDOMEN: Soft, nontender . No guarding. no masses palpable. Bowel sounds heard. LEGS: No edema. no swelling PSYCHIATRY: Alert and oriented -3, mood and affect normal. NERVOUS SYSTEM: Cranial N 2-12 grossly normal. Moves all 4 limbs. Diffuse weakness No focal deficits. No sensory deficit. Skin: no ulcer no rash Joints: No active swelling. No inflammation. Lymphatic system. No LN neck axilla or groin. - Labs CBC & Chem 7: 01/07/17 08:28 01/07/17 08:28 Labs: Abnormal Lab Results - Last 24 Hours (Table) 01/06/17 01/06/17 01/07/17 Range/Units 16:54 20:58 07:31 RBC (3.80-5.40) m/uL Hgb (11.4-16.0) gm/dL MCV (80.0-100.0) fL Plt Count (150-450) k/uL Lymphocytes # (1.0-4.8) k/uL Carbon Dioxide (22-30) mmol/L BUN (7-17) mg/dL Glucose (74-99) mg/dL POC Glucose (mg/dL) 127 H 136 H 187 H (75-99) mg/dL 01/07/17 01/07/17 01/07/17 Range/Units 08:28 08:28 12:23 RBC 3.46 L (3.80-5.40) m/uL Hgb 11.1 L (11.4-16.0) gm/dL MCV 102.2 H (80.0-100.0) fL Plt Count 495 H (150-450) k/uL Lymphocytes # 0.4 L (1.0-4.8) k/uL Carbon Dioxide 32 H (22-30) mmol/L BUN 34 H (7-17) mg/dL Glucose 195 H (74-99) mg/dL POC Glucose (mg/dL) 137 H (75-99) mg/dL Microbiology - Last 24 Hours (Table) 01/06/17 00:48 Blood Culture - Preliminary Blood No Growth after 24 hours Assessment and Plan Plan: 1. [ Acute COPD exacerbation with acute tracheal bronchitis, early bronchial pneumonia]. 2. [ Troponin 0.039, indeterminate]. 3. [ Acute on chronic hypoxic respiratory failure]. 4. [ Anemia]. 5. [ COPD]. 6. [ Hypertension]. 7. [ Remote history of nicotine dependence Plan: Continue on current medication regime, nebulized bronchodilators, steroids , IV antibiotics of Rocephin and Zithromax, monitoring. Increase ambulation as tolerated. Taper IV steroids. Discharge planning in progress. The impression and plan of care has been dictated as directed. : I performed a H&P examination of this patient and discussed the same with the dictator. I agree with the dictator's note. Any additional findings/opinions/ etc. will be noted.].
[2017-01-07 17:15] LABS: Glucose,Whole Blood 155 mg/dL (75-99)
[2017-01-07 20:56] LABS: Glucose,Whole Blood 265 mg/dL (75-99)
[2017-01-07] MEDS: methylPREDNISolone SOD SUCCI 40 MG/ML 1 ML VIAL IV SCH (23:41)
[2017-01-08] MEDS: SODIUM CHLORIDE 0.9% 1,000 ML IV SCH (02:30)
[2017-01-08 07:04] LABS: Glucose,Whole Blood 168 mg/dL (75-99)
[2017-01-08] MEDS: INSULIN LISPRO (humaLOG) 300 UNIT/3 ML VIAL SQ SCH ×4 (07:42→21:01)
[2017-01-08] MEDS: DILTIAZEM ORAL 30 MG TAB PO SCH ×3 (07:43→22:47)
[2017-01-08] MEDS: methylPREDNISolone SOD SUCCI 40 MG/ML 1 ML VIAL IV SCH ×2 (07:43→18:29)
[2017-01-08] MEDS: AZITHROMYCIN 500 MG TAB PO SCH (07:43)
[2017-01-08] MEDS: HEPARIN SODIUM,PORCINE 5,000 UNIT/ML 1 ML VIAL SQ SCH ×2 (07:43→18:29)
[2017-01-08] MEDS: guaiFENesin 600 MG TABLET.ER PO SCH ×2 (07:44→21:01)
[2017-01-08] MEDS: LEVALBUTEROL NEB 1.25 MG/3 ML AMP INHALATION SCH ×2 (07:44→11:46)
[2017-01-08] MEDS: BUDESONIDE 1 MG/2 ML NEBU INHALATION SCH ×2 (07:44→19:23)
[2017-01-08] MEDS: IPRATROPIUM 0.5 MG/2.5 ML NEBU INHALATION SCH ×4 (07:44→19:24)
[2017-01-08] MEDS: VALSARTAN 160 MG TAB PO SCH (07:44)
[2017-01-08] MEDS: guaiFENesin SYRUP 100MG/5ML 200 MG/10 ML CUP PO PRN ×2 (08:14→21:02)
[2017-01-08] MEDS: ALPRAZolam 0.25 MG TAB PO PRN ×2 (08:14→21:02)
[2017-01-08 08:35] LABS: Basophils % (A) 0 %; CH 32.2; CHCM 31.9; Eosinophils % (A) 0 %; HCT 32.6 % (34.0-46.0); HDW 2.75; HGB 9.9 gm/dL (11.4-16.0); Luc # (Auto) 0.11; Luc % (Auto) 2; Lymphocytes # (A) 0.3 k/uL (1.0-4.8); Lymphocytes % (A) 5 %; MCH 30.8 pg (25.0-35.0); MCHC 30.4 g/dL (31.0-37.0); MCV 101.4 fL (80.0-100.0); Macrocytosis Slight; Mean Platelet Volume 7.2; Monocytes # (A) 0.3 k/uL (0-1.0); Monocytes % (A) 4 %; Neutrophils # (A) 5.8 k/uL (1.3-7.7); Neutrophils % (A) 89 %; RBC 3.22 m/uL (3.80-5.40); RDW 13.4 % (11.5-15.5); WBC 6.6 k/uL (3.8-10.6)
[2017-01-08 08:58] LABS: Anion Gap 9 mmol/L; Blood Urea Nitrogen 34 mg/dL (7-17); Calcium 9.1 mg/dL (8.4-10.2); Carbon Dioxide 31 mmol/L (22-30); Chloride 99 mmol/L (98-107); Glucose 206 mg/dL (74-99); Non-African American GFR(MDRD) >60 (>60 ml/min/1.73 sqM); Potassium 4.4 mmol/L (3.5-5.1); Sodium 139 mmol/L (137-145)
--- NOTE | 2017-01-08 10:32 | P.PN ---
<Savanna Serrano M - Last Filed: 01/08/17 10:24> Subjective Progress Note Date: 01/08/17 Principal diagnosis: Dyspnea, cough, COPD, hypoxemia This is a 76-year-old female patient with past medical history of COPD that presented to the emergency department on 01/06/2017 with 3 day history worsening dyspnea and wheezing. Patient was also noted by her family to be hallucinating and talking to people who were not present in the room. She denied having fevers or chills, chest pain, no increased cough or significant sputum production. No significant swelling in her legs. But the family did note decrease in her appetite for the previous week. On presentation she was also slightly tachycardic, with low-grade fevers and tachypneic with a rate in the low 30s. She was placed on BiPAP nontender support in the emergency room for a brief amount of time which was subsequently weaned off. Patient is currently tolerating nasal cannula at 2 L/m with oxygen saturation around 99%. No further febrile episodes since admission. Sounds are diminished bilaterally , with bronchospastic cough. Patient's daughter stated that her mother had an episode of tachycardia with a rate of 200 bpm today during Perforomist nebulizer treatments. That was stopped and the heart rate did return to normal and is currently at 88 BPM. She is resting in bed comfortably, with no signs of acute distress. Unable to bring up , but no wheezes, no rhonchi, no rales. On 01/08/2017 patient is reevaluated. She is complaining of persistent congested nonproductive cough. She has been on Mucinex and cough syrup and not able to expectorate much phlegm. She has been on 4 L oxygen per nasal cannula with saturations around percent. This can probably be weaned down further, febrile episodes last night. Lung sounds are diminished, with course expiratory crackles over posterior left mid lung, and scattered wheezes with prolonged expiratory phase. bronchospastic cough, further episodes of SVT. We' ll continue the present course of treatment Objective - Vital Signs Vital signs: Vital Signs Temp 97.6 F 01/08/17 07:00 Pulse 86 01/08/17 08:10 Resp 16 01/08/17 07:00 BP 149/97 01/08/17 07:00 Pulse Ox 98 01/08/17 07:47 Intake & Output 01/07/17 01/08/17 01/08/17 18:59 06:59 18:59 Intake Total 480 160 Balance 480 160 Intake: Intake, IV Titration 160 Amount Sodium Chloride 0.9% 1, 160 000 ml @ 20 mls/hr IV . Q24H CHEY Rx#:[id number] Oral 480 Other: # Voids 3 1 # Bowel Movements 0 - Exam No acute distress, oriented 3 HEENT examination is unremarkable. Mucous membranes are moist. No oral lesions. Neck supple. Full range of motion. No adenopathy or thyromegaly. Neck veins are flat. Cardiovascular examination reveals regular rhythm rate. S1-S2 normal. No S3 or S4. No discernible murmur. Lungs reveal severely diminished breath sounds. Some very mild expiratory wheezes. Inspiratory crackles. Breath sounds are equal bilaterally but diminished throughout. Abdomen soft bowel sounds are heard. No masses or tenderness. Extremities are intact. No cyanosis clubbing or edema. Skin is without rash or lesion. Neurologic examination is brief but nonfocal. - Labs CBC & Chem 7: 01/08/17 07:53 01/08/17 07:53 Labs: Abnormal Lab Results - Last 24 Hours (Table) 01/07/17 01/07/17 01/07/17 Range/Units 12:23 17:10 20:53 RBC (3.80-5.40) m/uL Hgb (11.4-16.0) gm/dL Hct (34.0-46.0) % MCV (80.0-100.0) fL MCHC (31.0-37.0) g/dL Lymphocytes # (1.0-4.8) k/uL Carbon Dioxide (22-30) mmol/L BUN (7-17) mg/dL Glucose (74-99) mg/dL POC Glucose (mg/dL) 137 H 155 H 265 H (75-99) mg/dL 01/08/17 01/08/17 01/08/17 Range/Units 07:01 07:53 07:53 RBC 3.22 L (3.80-5.40) m/uL Hgb 9.9 L (11.4-16.0) gm/dL Hct 32.6 L (34.0-46.0) % MCV 101.4 H (80.0-100.0) fL MCHC 30.4 L (31.0-37.0) g/dL Lymphocytes # 0.3 L (1.0-4.8) k/uL Carbon Dioxide 31 H (22-30) mmol/L BUN 34 H (7-17) mg/dL Glucose 206 H (74-99) mg/dL POC Glucose (mg/dL) 168 H (75-99) mg/dL Microbiology - Last 24 Hours (Table) 01/06/17 00:48 Blood Culture - Preliminary Blood No Growth after 48 hours Assessment and Plan Plan: Assessment: #1. Acute community-acquired pneumonia. #2. Acute on chronic hypoxic respiratory failure. Wears home O2 at 3 L nasal cannula #3. History of COPD, on Symbicort and Spiriva maintenance inhalers at home #4. History of asthma #5. Acute paroxysmal supraventricular tachycardia, cardiology is following. Plan: Continue patient on Rocephin, and Zithromax for antibiotic coverage, IV steroids , DuoNeb and Pulmicort nebulizers. Continue Mucinex and cough syrup for persistent coughNo further episodes of SVT Continue GI and DVT prophylaxis. Chest x-ray from 01/07/2017 shows COPD with similar right basilar infiltrates that could possibly represent pneumonia. Increase activity as tolerated. Continue to follow. I performed a history & physical examination of the patient and discussed their management with my nurse practitioner, Savanna Serrano. I reviewed the nurse practitioner's note and agree with the documented findings and plan of care. <Russel De Paz - Last Filed: 01/08/17 11:33> Objective - Vital Signs Vital signs: Vital Signs Temp 97.6 F 01/08/17 07:00 Pulse 86 01/08/17 08:10 Resp 16 01/08/17 07:00 BP 149/97 01/08/17 07:00 Pulse Ox 98 01/08/17 07:47 Intake & Output 01/07/17 01/08/17 01/08/17 18:59 06:59 18:59 Intake Total 480 160 Balance 480 160 Intake: Intake, IV Titration 160 Amount Sodium Chloride 0.9% 1, 160 000 ml @ 20 mls/hr IV . Q24H CHEY Rx#:[id number] Oral 480 Other: # Voids 3 1 # Bowel Movements 0 - Labs CBC & Chem 7: 01/08/17 07:53 01/08/17 07:53 Labs: Abnormal Lab Results - Last 24 Hours (Table) 01/07/17 01/07/17 01/07/17 Range/Units 12:23 17:10 20:53 RBC (3.80-5.40) m/uL Hgb (11.4-16.0) gm/dL Hct (34.0-46.0) % MCV (80.0-100.0) fL MCHC (31.0-37.0) g/dL Lymphocytes # (1.0-4.8) k/uL Carbon Dioxide (22-30) mmol/L BUN (7-17) mg/dL Glucose (74-99) mg/dL POC Glucose (mg/dL) 137 H 155 H 265 H (75-99) mg/dL 01/08/17 01/08/17 01/08/17 Range/Units 07:01 07:53 07:53 RBC 3.22 L (3.80-5.40) m/uL Hgb 9.9 L (11.4-16.0) gm/dL Hct 32.6 L (34.0-46.0) % MCV 101.4 H (80.0-100.0) fL MCHC 30.4 L (31.0-37.0) g/dL Lymphocytes # 0.3 L (1.0-4.8) k/uL Carbon Dioxide 31 H (22-30) mmol/L BUN 34 H (7-17) mg/dL Glucose 206 H (74-99) mg/dL POC Glucose (mg/dL) 168 H (75-99) mg/dL Microbiology - Last 24 Hours (Table) 01/06/17 00:48 Blood Culture - Preliminary Blood No Growth after 48 hours Assessment and Plan Plan: This is a joint evaluation that was done along with a nurse practitioner. The patient is recovering from acute pneumonia and COPD exacerbation. I can't understand that the patient had another episode of a SVT over the past 24 hours. This was a self-limiting short run SVT. For that reason, I'm going to drop to Xopenex neb last treatment still every 8 hours. Continue Atrovent. Continue the rest of the treatment and possible discharge in a.m. Cardiology is on the case.
[2017-01-08 12:42] LABS: Glucose,Whole Blood 163 mg/dL (75-99)
--- NOTE | 2017-01-08 13:42 | P.PN ---
Subjective Progress Note Date: 01/08/17 Mrs. Banuelos is a 76-year-old female with past medical history significant for COPD on home oxygen. She quit smoking 5 years ago. She presented to the hospital with complaints of worsening dyspnea and productive cough. We have been asked to see the patient for an episode of SVT that occurred after she received an updraft treatment yesterday. Medication adjustments made yesterday to decrease valsartan and add cardizem PO. TSH 0.825, blood pressure 166/80 with heart rate 88. 2D echo complete and reveals preserved LV function with EF 55-60% with mild LVH. Telemetry tracings reveal an episode of SVT last night at 1923 with heart rate up to 171. This was non-sustained and she was asymptomatic during the epidose. Objective - Vital Signs Vital signs: Vital Signs Temp 97.6 F 01/08/17 07:00 Pulse 86 01/08/17 08:10 Resp 16 01/08/17 07:00 BP 149/97 01/08/17 07:00 Pulse Ox 98 01/08/17 07:47 Intake & Output 01/07/17 01/08/17 01/08/17 18:59 06:59 18:59 Intake Total 480 160 Balance 480 160 Intake: Intake, IV Titration 160 Amount Sodium Chloride 0.9% 1, 160 000 ml @ 20 mls/hr IV . Q24H [facility] Rx#:[id number] Oral 480 Other: # Voids 3 1 # Bowel Movements 0 - Exam GENERAL: Well-appearing, well-nourished and in no acute distress. NECK: Supple without JVD or thyromegaly. LUNGS: Course rhonchi with diminished air entry. No wheezes or rales. HEART: Regular rate and rhythm without murmur, rubs or gallops. S1 and S2 heard. EXTREMITIES: Normal range of motion, no edema. No clubbing or cyanosis. Peripheral pulses intact and strong. - Labs CBC & Chem 7: 01/08/17 07:53 01/08/17 07:53 Labs: Abnormal Lab Results - Last 24 Hours (Table) 01/07/17 01/07/17 01/07/17 Range/Units 12:23 17:10 20:53 RBC (3.80-5.40) m/uL Hgb (11.4-16.0) gm/dL Hct (34.0-46.0) % MCV (80.0-100.0) fL MCHC (31.0-37.0) g/dL Lymphocytes # (1.0-4.8) k/uL Carbon Dioxide (22-30) mmol/L BUN (7-17) mg/dL Glucose (74-99) mg/dL POC Glucose (mg/dL) 137 H 155 H 265 H (75-99) mg/dL 01/08/17 01/08/17 01/08/17 Range/Units 07:01 07:53 07:53 RBC 3.22 L (3.80-5.40) m/uL Hgb 9.9 L (11.4-16.0) gm/dL Hct 32.6 L (34.0-46.0) % MCV 101.4 H (80.0-100.0) fL MCHC 30.4 L (31.0-37.0) g/dL Lymphocytes # 0.3 L (1.0-4.8) k/uL Carbon Dioxide 31 H (22-30) mmol/L BUN 34 H (7-17) mg/dL Glucose 206 H (74-99) mg/dL POC Glucose (mg/dL) 168 H (75-99) mg/dL Microbiology - Last 24 Hours (Table) 01/06/17 00:48 Blood Culture - Preliminary Blood No Growth after 48 hours Assessment and Plan Plan: ASSESSMENT 1. Acute exacerbation of COPD with hypoxemia 2. Paroxysmal supraventricular tachycardia, AV octavia reentry tachycardia, most likely exacerbated by updraft treatment 3. Essential hypertension PLAN It seems her episodes are directly related to her treatments. Last night, just like her initial episode, she received Pulmicort, atrovent and xopenex just prior to. Possibly these medications can be adjusted or changed and see how she tolerates. The above impression and plan of care have been discussed and directed by the signing physician. Tory Dunbar, nurse practitioner, acting as scribe for signing physician.
--- NOTE | 2017-01-08 16:16 | CDI ---
In responding to this query, please exercise your independent professional judgment. The [facility] Coding Staff and Clinical Documentation Specialists appreciate your assistance in clarifying documentation, maintaining compliance with coding guidelines, accurately documenting patients condition and capturing severity of illness. The fact that a question is asked does not imply that any particular answer is desired or expected. Communication forms are a method of clarifying documentation and are not made part of the Legal Health Record. Thank you in advance for your clarification. Last Revision, January 2015 Estefany Recio [address] [facility] [place] [address] Documentation Clarification Form Date: 01/08/2017 4:06:00 PM From: Elena Orozoc RN, CCDS Admit Date: 01/06/2017 2:29:00 AM Patient Name: Shani Banuelos Visit Number: [id number] Dr. Patrice Ledbetter/ Altagracia Alfred CNP A diagnosis of anemia lacks specificity to accurately reflect your patients severity of condition and clarification is needed. Patient history/risk factors: COPD, asthma, HTN, acute hypoxic respiratory failure Clinical Indicators: Attending Progress Note: 01/07: "Anemia" Hemoglobin: 11/11.1/9.9 Hematocrit: 36.2/35.3/32.6 Treatment: labs: am daily In order to capture the severity of condition, please clarify the type of anemia and etiology if known: Acute blood loss anemia Acute on chronic blood loss anemia Chronic blood loss anemia Iron deficiency anemia Hemolytic anemia Drug induced anemia Anemia due to malignancy Nutritional anemia Anemia of chronic kidney disease Unable to determine Other, please specify Please document in your progress notes and discharge summary in order to capture severity of illness and risk of mortality. Include clinical findings that support your diagnosis. FYI: Press F11 to launch patient chart. OLGA
--- NOTE | 2017-01-08 17:09 | P.PN ---
Subjective Progress Note Date: 01/08/17 Progress note being dictated for Dr. Ledbetter. 01/07/17:Interval history: This a 76-year-old female admitted with acute COPD exacerbation with tracheobronchitis, early bronchial pneumonia, acute hypoxic respiratory failure and multiple other medical issues. Maintained on IV steroids, nebulized bronchodilators and IV antibiotics. Breathing slowly improving. Nonproductive cough. Chest x-ray reporting right basilar opacity, unchanged. Afebrile, T-max 99.3 oral. 01/08/2017 patient had another run of nonsustained SVT last night with heart rates up into the 170s, after receiving nebulized treatments. No further runs today. Echo suboptimal study, reporting normal LV function, EF 55-60%. Currently maintaining O2 sats of 99% on 4 L nasal cannula and staff has been advised to wean oxygen down-patient normally wears 2 L nasal cannula O2 at home. Afebrile, normal WBC. Breathing improving, nonproductive cough. Mild exertional shortness of breath. Denies chest pain, palpitations. Objective - Vital Signs Vital signs: Vital Signs Temp 98.0 F 01/08/17 15:00 Pulse 82 01/08/17 15:12 Resp 16 01/08/17 15:00 BP 132/83 01/08/17 15:00 Pulse Ox 98 01/08/17 15:00 Intake & Output 01/07/17 01/08/17 01/08/17 18:59 06:59 18:59 Intake Total 480 160 440 Balance 480 160 440 Intake: Intake, IV Titration 160 Amount Sodium Chloride 0.9% 1, 160 000 ml @ 20 mls/hr IV . Q24H [facility] Rx#:[id number] Oral 480 440 Other: # Voids 3 1 3 # Bowel Movements 0 0 - Exam PHYSICAL EXAM: VITAL SIGNS: [As above] GENERAL: Sitting up in bed, no acute distress HEENT: Conjunctivae normal. eyes normal. Oral mucosa moist. NECK: No JVD. No thyroid enlargement. No LNs CARDIOVASCULAR: S1, S2 muffled. No murmur RESPIRATION: Breath sounds diminished in the bases. Scattered rhonchi, crackles. Bilateral improving Expiratory wheezes. ABDOMEN: Soft, nontender . No guarding. no masses palpable. Bowel sounds heard. LEGS: No edema. no swelling PSYCHIATRY: Alert and oriented -3, mood and affect normal. NERVOUS SYSTEM: Cranial N 2-12 grossly normal. Moves all 4 limbs. Diffuse weakness No focal deficits. No sensory deficit. Skin: no ulcer no rash Joints: No active swelling. No inflammation. Lymphatic system. No LN neck axilla or groin. - Labs CBC & Chem 7: 01/08/17 07:53 01/08/17 07:53 Labs: Abnormal Lab Results - Last 24 Hours (Table) 01/07/17 01/07/17 01/08/17 Range/Units 17:10 20:53 07:01 RBC (3.80-5.40) m/uL Hgb (11.4-16.0) gm/dL Hct (34.0-46.0) % MCV (80.0-100.0) fL MCHC (31.0-37.0) g/dL Lymphocytes # (1.0-4.8) k/uL Carbon Dioxide (22-30) mmol/L BUN (7-17) mg/dL Glucose (74-99) mg/dL POC Glucose (mg/dL) 155 H 265 H 168 H (75-99) mg/dL 01/08/17 01/08/17 01/08/17 Range/Units 07:53 07:53 12:36 RBC 3.22 L (3.80-5.40) m/uL Hgb 9.9 L (11.4-16.0) gm/dL Hct 32.6 L (34.0-46.0) % MCV 101.4 H (80.0-100.0) fL MCHC 30.4 L (31.0-37.0) g/dL Lymphocytes # 0.3 L (1.0-4.8) k/uL Carbon Dioxide 31 H (22-30) mmol/L BUN 34 H (7-17) mg/dL Glucose 206 H (74-99) mg/dL POC Glucose (mg/dL) 163 H (75-99) mg/dL Microbiology - Last 24 Hours (Table) 01/06/17 00:48 Blood Culture - Preliminary Blood No Growth after 48 hours Assessment and Plan Plan: 1. [ Acute COPD exacerbation with acute tracheal bronchitis, early bronchial [id number]. 2. [ Troponin 0.039, indeterminate]. 3. [ Acute on chronic hypoxic respiratory failure]. 4. [ Anemia, possibly chronic. Hemoglobin fluctuates between 12 and 9.8, upon trending back to ]. 5. [ COPD]. 6. [ Hypertension]. 7. [ Remote history of nicotine dependence 8. Acute proximal SVT, attributed to nebulized treatments as per cardiology. Plan: Continue on current medication regime, nebulized bronchodilators, steroids , Rocephin and Zithromax, monitoring. Increase ambulation as tolerated. Discharge planning in progress for tomorrow, pending pulmonary clearance. The impression and plan of care has been dictated as directed. : I performed a H&P examination of this patient and discussed the same with the dictator. I agree with the dictator's note. Any additional findings/opinions/ etc. will be noted.].
[2017-01-08 17:31] LABS: Glucose,Whole Blood 152 mg/dL (75-99)
[2017-01-08 21:03] LABS: Glucose,Whole Blood 195 mg/dL (75-99)
[2017-01-08] MEDS ORDERED: INFLUENZA VACCINE (6 MOS+) 60 MCG/0.5 ML SYRINGE IM ONE (22:46)
[2017-01-09] MEDS: methylPREDNISolone SOD SUCCI 40 MG/ML 1 ML VIAL IV SCH ×3 (00:02→18:20)
[2017-01-09] MEDS: HEPARIN SODIUM,PORCINE 5,000 UNIT/ML 1 ML VIAL SQ SCH ×3 (00:10→16:56)
[2017-01-09] MEDS: SODIUM CHLORIDE 0.9% 1,000 ML IV SCH (06:16)
[2017-01-09 07:26] LABS: Glucose,Whole Blood 151 mg/dL (75-99)
[2017-01-09] MEDS: VALSARTAN 160 MG TAB PO SCH (08:38)
[2017-01-09] MEDS: guaiFENesin 600 MG TABLET.ER PO SCH (08:39)
[2017-01-09] MEDS: guaiFENesin SYRUP 100MG/5ML 200 MG/10 ML CUP PO PRN (08:39)
[2017-01-09] MEDS: ALPRAZolam 0.25 MG TAB PO PRN (08:39)
[2017-01-09] MEDS: DILTIAZEM ORAL 30 MG TAB PO SCH ×3 (08:39→16:56)
[2017-01-09] MEDS: AZITHROMYCIN 500 MG TAB PO SCH (08:39)
[2017-01-09] MEDS: INSULIN LISPRO (humaLOG) 300 UNIT/3 ML VIAL SQ SCH ×3 (08:44→18:19)
[2017-01-09] MEDS: BUDESONIDE 1 MG/2 ML NEBU INHALATION SCH ×2 (08:47→19:33)
[2017-01-09] MEDS: IPRATROPIUM 0.5 MG/2.5 ML NEBU INHALATION SCH ×5 (08:47→19:33)
[2017-01-09] MEDS: IPRATROPIUM-ALBUTEROL 3 ML NEB INHALATION PRN (08:47)
[2017-01-09 08:54] VITALS: RESP 16
[2017-01-09 09:11] LABS: HCT 30.1 % (34.0-46.0); HGB 9.7 gm/dL (11.4-16.0); MCH 32.3 pg (25.0-35.0); MCV 99.9 fL (80.0-100.0); RBC 3.01 m/uL (3.80-5.40); WBC 4.9 k/uL (3.8-10.6); WBC (Perox) 5.17
[2017-01-09 09:12] LABS: Basophils % (A) 0 %; CH 32.6; CHCM 32.8; Eosinophils % (A) 0 %; HDW 2.79; Luc % (Auto) 2; Lymphocytes # (A) 0.3 k/uL (1.0-4.8); Lymphocytes % (A) 5 %; MCHC 32.3 g/dL (31.0-37.0); Mean Platelet Volume 7.4; Monocytes # (A) 0.2 k/uL (0-1.0); Monocytes % (A) 5 %; Neutrophils # (A) 4.3 k/uL (1.3-7.7); Neutrophils % (A) 88 %; RDW 13.4 % (11.5-15.5)
[2017-01-09 09:36] LABS: Anion Gap 7 mmol/L; Blood Urea Nitrogen 29 mg/dL (7-17); Calcium 8.7 mg/dL (8.4-10.2); Carbon Dioxide 32 mmol/L (22-30); Chloride 98 mmol/L (98-107); Glucose 126 mg/dL (74-99); Non-African American GFR(MDRD) >60 (>60 ml/min/1.73 sqM); Potassium 4.6 mmol/L (3.5-5.1); Sodium 137 mmol/L (137-145)
--- NOTE | 2017-01-09 09:57 | P.PN ---
Subjective Progress Note Date: 01/09/17 Mrs. Banuelos is a 76-year-old female with past medical history significant for COPD on home oxygen. She quit smoking 5 years ago. She presented to the hospital with complaints of worsening dyspnea and productive cough. We have been asked to see the patient for an episode of SVT that occurred after she received an updraft treatment. She was started on cardizem TID after the initial episode. She had another nonsustained run 01/07 with heart rate getting up to 171. This again was after a breathing treatment. Discussion was had with pulmonary team and they have made adjustments. Xopenex has been discontinued. She has had no further arrhythmia on the previous 24 hours. Objective - Vital Signs Vital signs: Vital Signs Temp 98.6 F 01/09/17 07:00 Pulse 80 01/09/17 08:47 Resp 16 01/09/17 08:47 BP 130/68 01/09/17 07:00 Pulse Ox 97 01/09/17 07:00 Intake & Output 01/08/17 01/09/17 01/09/17 18:59 06:59 18:59 Intake Total 440 Balance 440 Intake: Oral 440 Other: Voiding Method Toilet # Voids 3 2 # Bowel Movements 0 - Exam GENERAL: Well-appearing, well-nourished and in no acute distress. NECK: Supple without JVD or thyromegaly. LUNGS: Course rhonchi with diminished air entry and expiratory wheezes. No rales. HEART: Regular rate and rhythm without murmur, rubs or gallops. S1 and S2 heard. EXTREMITIES: Normal range of motion, no edema. No clubbing or cyanosis. Peripheral pulses intact and strong. - Labs CBC & Chem 7: 01/09/17 08:28 01/09/17 08:21 Labs: Abnormal Lab Results - Last 24 Hours (Table) 01/08/17 01/08/17 01/08/17 Range/Units 12:36 17:28 20:57 POC Glucose (mg/dL) 163 H 152 H 195 H (75-99) mg/dL 01/09/17 Range/Units 07:11 POC Glucose (mg/dL) 151 H (75-99) mg/dL Microbiology - Last 24 Hours (Table) 01/06/17 00:48 Blood Culture - Preliminary Blood No Growth after 72 hours Assessment and Plan Plan: ASSESSMENT 1. Acute exacerbation of COPD with hypoxemia 2. Paroxysmal supraventricular tachycardia, AV octavia reentry tachycardia, most likely exacerbated by updraft treatment 3. Essential hypertension PLAN Continue with cardizem as previously ordered. She should follow up with Dr. Cleveland in 2-4 weeks after discharge. From a cardiac perspective she can is stable for discharge. The above impression and plan of care have been discussed and directed by the signing physician. Tory Dunbar, nurse practitioner, acting as scribe for signing physician.
--- NOTE | 2017-01-09 11:09 | P.PN ---
Subjective Progress Note Date: 01/09/17 This is a 76-year-old female patient with past medical history of COPD that presented to the emergency department on 01/06/2017 with 3 day history worsening dyspnea and wheezing. Patient was also noted by her family to be hallucinating and talking to people who were not present in the room. She denied having fevers or chills, chest pain, no increased cough or significant sputum production. No significant swelling in her legs. But the family did note decrease in her appetite for the previous week. On presentation she was also slightly tachycardic, with low-grade fevers and tachypneic with a rate in the low 30s. She was placed on BiPAP nontender support in the emergency room for a brief amount of time which was subsequently weaned off. Patient is currently tolerating nasal cannula at 2 L/m with oxygen saturation around 99%. No further febrile episodes since admission. Sounds are diminished bilaterally , with bronchospastic cough. Patient's daughter stated that her mother had an episode of tachycardia with a rate of 200 bpm today during Perforomist nebulizer treatments. That was stopped and the heart rate did return to normal and is currently at 88 BPM. She is resting in bed comfortably, with no signs of acute distress. Unable to bring up , but no wheezes, no rhonchi, no rales. On 01/08/2017 patient is reevaluated. She is complaining of persistent congested nonproductive cough. She has been on Mucinex and cough syrup and not able to expectorate much phlegm. She has been on 4 L oxygen per nasal cannula with saturations around percent. This can probably be weaned down further, febrile episodes last night. Lung sounds are diminished, with course expiratory crackles over posterior left mid lung, and scattered wheezes with prolonged expiratory phase. bronchospastic cough, further episodes of SVT. We' ll continue the present course of treatment On 01/09/2017 the patient is being seen in reevaluation. She is doing much better. Her lungs are stable for now and she is not having any major respiratory difficulties. No cardiac arrhythmias over the past 24 hours. I took her off the Xopenex and she is only receiving Atrovent of breast units [id number]. No fever. No chills. No night sweats. No change in mental status. No other complaints otherwise. Objective - Vital Signs Vital signs: Vital Signs Temp 98.6 F 01/09/17 07:00 Pulse 80 01/09/17 08:47 Resp 16 01/09/17 08:47 BP 130/68 01/09/17 07:00 Pulse Ox 97 01/09/17 07:00 Intake & Output 01/08/17 01/09/17 01/09/17 18:59 06:59 18:59 Intake Total 440 Balance 440 Intake: Oral 440 Other: Voiding Method Toilet # Voids 3 2 # Bowel Movements 0 - Exam No acute distress, oriented 3 HEENT examination is unremarkable. Mucous membranes are moist. No oral lesions. Neck supple. Full range of motion. No adenopathy or thyromegaly. Neck veins are flat. Cardiovascular examination reveals regular rhythm rate. S1-S2 normal. No S3 or S4. No discernible murmur. Lungs reveal severely diminished breath sounds. Some very mild expiratory wheezes. Inspiratory crackles. Breath sounds are equal bilaterally but diminished throughout. Abdomen soft bowel sounds are heard. No masses or tenderness. Extremities are intact. No cyanosis clubbing or edema. Skin is without rash or lesion. Neurologic examination is brief but nonfocal. - Labs CBC & Chem 7: 01/09/17 08:28 01/09/17 08:21 Labs: Abnormal Lab Results - Last 24 Hours (Table) 01/08/17 01/08/17 01/08/17 Range/Units 12:36 17:28 20:57 RBC (3.80-5.40) m/uL Hgb (11.4-16.0) gm/dL Hct (34.0-46.0) % Lymphocytes # (1.0-4.8) k/uL Carbon Dioxide (22-30) mmol/L BUN (7-17) mg/dL Glucose (74-99) mg/dL POC Glucose (mg/dL) 163 H 152 H 195 H (75-99) mg/dL 01/09/17 01/09/17 01/09/17 Range/Units 07:11 08:21 08:28 RBC 3.01 L (3.80-5.40) m/uL Hgb 9.7 L (11.4-16.0) gm/dL Hct 30.1 L (34.0-46.0) % Lymphocytes # 0.3 L (1.0-4.8) k/uL Carbon Dioxide 32 H (22-30) mmol/L BUN 29 H (7-17) mg/dL Glucose 126 H (74-99) mg/dL POC Glucose (mg/dL) 151 H (75-99) mg/dL Microbiology - Last 24 Hours (Table) 01/06/17 00:48 Blood Culture - Preliminary Blood No Growth after 72 hours Assessment and Plan Plan: Assessment: #1. Acute community-acquired pneumonia. The CT angios the chest showed small consolidation and air bronchograms predominantly in the periphery of the right lung and the findings were consistent with multifocal pneumonia. She has also COPD with another 0.6 cm nodule in the right lower lobe. #2. Acute on chronic hypoxic respiratory failure. Wears home O2 at 3 L nasal cannula #3. History of COPD, on Symbicort and Spiriva maintenance inhalers at home #4. History of asthma #5. Acute paroxysmal supraventricular tachycardia, cardiology is following. Plan Condition is stable. The patient can be potentially discharged home if medicine is agreeable. The patient can be discharged home on a combination of Spiriva and Symbicort and albuterol HFA on an as-needed basis and a prednisone burst taper. She'll complete a course of antibiotics on outpatient basis. She' ll be following up with us in the office. The follow-up chest x-ray from 2016 showed some limited right basilar infiltrate that needs to be followed up on outpatient basis with a follow-up chest x-ray in a week or 2.
[2017-01-09 12:01] LABS: Glucose,Whole Blood 181 mg/dL (75-99)
[2017-01-09 15:50] VITALS: BP 125/66; TEMP 97.4
[2017-01-09 17:22] LABS: Glucose,Whole Blood 206 mg/dL (75-99)
--- NOTE | 2017-01-09 18:00 | P.DS ---
Providers Date of admission: 01/06/17 02:29 Expected date of discharge: 01/09/17 Attending physician: Wisam Thao Consults: 01/06/17 02:29 Consult Physician Routine Consulting Provider: Joyce Benitez Consult Reason/Comments: your patient. COPD exacerbation. Do you want consulting provider notified?: Yes 01/06/17 12:10 Consult Physician Urgent Consulting Provider: Maxim Cleveland Consult Reason/Comments: sinus tach, episode of svt post duoneb/performist Do you want consulting provider notified?: Yes Primary care physician: Joyce Benitez Hospital Course: Final Diagnoses: 1. [ Acute COPD exacerbation with acute tracheal bronchitis, early bronchial rsgdgkhzt-pnmtjilpi-ilinmbjf-multifocal. CTA reports of 0.6 cm nodule right lower lobe, further follow-up outpatient. 2. [ Troponin 0.039, indeterminate]. 3. [ Acute on chronic hypoxic respiratory failure]. 4. [ Anemia, possibly chronic. Hemoglobin fluctuates between 12 and 9.8, upon trending back to ]. 5. [ COPD]. 6. [ Hypertension]. 7. [ Remote history of nicotine dependence 8. Acute proximal SVT, attributed to nebulized treatments as per cardiology. Hospital course:This a 76-year-old female admitted with acute COPD exacerbation with tracheobronchitis, early bronchial pneumonia, acute hypoxic respiratory failure and multiple other medical issues. Patient also had a couple runs of nonsustained SVT after receiving nebulized treatments. Evaluated by cardiology and pulmonary. Maintained on IV steroids, nebulized bronchodilators and IV antibiotics. The follow-up chest x-ray from 01/07/2017 showed some limited right basilar infiltrate that needs to be followed up outpatient . Significant clinical improvement. Patient has been clean for discharge by all consults. Patient is being discharged home in a stable condition with guarded prognosis. The impression and plan of care has been dictated as directed. : I performed a history and examination of this patient, discussed the same with the dictator. I agree with the dictator's note ,documented as a scribe. Any additional findings or plans will be noted. Patient Condition at Discharge: Stable Plan - Discharge Summary New Discharge Prescriptions: New Cefuroxime Axetil [Ceftin] 500 mg PO BID #10 tab Diltiazem Oral [Cardizem*] 30 mg PO TID #90 tab guaiFENesin [Mucinex] 1,200 mg PO Q12HR tab guaiFENesin SYRUP 100MG/5ML [Robitussin] 200 mg PO Q6H PRN dose PRN Reason: Cough predniSONE 10 mg PO DIRECTED #30 tab Continue Budesonide/Formoterol Fumarate [Symbicort 80-4.5 Mcg Inhaler] 2 puff INHALATION RT-BID Tiotropium 18 Mcg/Puff [Spiriva] 1 cap INHALATION RT-DAILY Albuterol Sulfate [Proair Hfa] 2 puff INHALATION RT-Q4H PRN PRN Reason: Shortness Of Breath Valsartan [Diovan] 160 mg PO DAILY Discharge Medication List Budesonide/Formoterol Fumarate [Symbicort 80-4.5 Mcg Inhaler] 2 puff INHALATION RT-BID 11/25/15 [History] Albuterol Sulfate [Proair Hfa] 2 puff INHALATION RT-Q4H PRN 01/14/16 [History] Tiotropium 18 Mcg/Puff [Spiriva] 1 cap INHALATION RT-DAILY 01/14/16 [History] Valsartan [Diovan] 160 mg PO DAILY 01/06/17 [History] Cefuroxime Axetil [Ceftin] 500 mg PO BID #10 tab 01/09/17 [Rx] Diltiazem Oral [Cardizem*] 30 mg PO TID #90 tab 01/09/17 [Rx] guaiFENesin SYRUP 100MG/5ML [Robitussin] 200 mg PO Q6H PRN dose 01/09/17 [Rx] guaiFENesin [Mucinex] 1,200 mg PO Q12HR tab 01/09/17 [Rx] predniSONE 10 mg PO DIRECTED #30 tab 01/09/17 [Rx] Follow up Appointment(s)/Referral(s): Joyce Benitez MD [Primary Care Provider] - 01/22/17 1:00 pm Maxim Cleveland MD [STAFF PHYSICIAN] - 01/28/17 3:15 pm () Ambulatory/Diagnostic Orders: Complete Blood Count w/diff [LAB.AMB] Time Frame: 3 Days, Location: Determined By Patient Patient Instructions/Handouts: COPD (Chronic Obstructive Pulmonary Disease) (DC ) Activity/Diet/Wound Care/Special Instructions: Cardiac diet. Limited until follow up visit.
[2017-01-09 19:37] VITALS: PULSE 90
== END 2017-01-09 22:31 | disposition home or self-care (01) | DRG 190 ==
LOC: EC 00:30 → 4MS4W 02:29
PROVIDERS: ADMIT Hospitalist; ATTEND Hospitalist
DX: J44.0 Chronic obstructive pulmonary disease with (acute) lower respiratory infection (principal); J96.21 Acute and chronic respiratory failure with hypoxia; J18.0 Bronchopneumonia, unspecified organism; I47.1 Supraventricular tachycardia; J44.1 Chronic obstructive pulmonary disease with (acute) exacerbation; D64.9 Anemia, unspecified; I10 Essential (primary) hypertension; Z87.891 Personal history of nicotine dependence; Z83.3 Family history of diabetes mellitus; Z82.3 Family history of stroke; Z99.81 Dependence on supplemental oxygen; Z88.6 Allergy status to analgesic agent; Z79.51 Long term (current) use of inhaled steroids; Z79.52 Long term (current) use of systemic steroids
CPT/HCPCS: 36415; 71020; 71275; 80048; 80053; 80306; 81001; 82550; 82553; 82803; 83036; 83605; 83735; 83880; 84443; 84484; 85025; 85379; 85610; 85730; 87040; 87502; 90686; 93005; 93306; 94640; 94660; 94760; 96361; 96365; 96366; 99285

== ENCOUNTER 2017-05-27 23:15 | Observation (INO) | payer MEDICARE, BC ==
[2017-05-27] MEDS ORDERED: LEVOFLOXACIN 750 MG TAB PO STA (23:29)
[2017-05-27] MEDS ORDERED: methylPREDNISolone SOD SUCCI 125 MG/2 ML VIAL IV STA (23:29)
[2017-05-27] MEDS ORDERED: IPRATROPIUM 0.5 MG/2.5 ML NEBU INHALATION STA (23:29)
[2017-05-27] MEDS ORDERED: ALBUTEROL NEBULIZED 2.5 MG/3 ML INHALATION STA (23:29)
[2017-05-27] MEDS ORDERED: SODIUM CHLORIDE 0.9% 1,000 ML IV STA (23:29)
--- NOTE | 2017-05-27 23:49 | ED ---
SOB HPI - General Chief Complaint: Shortness of Breath Stated Complaint: JADEN Time Seen by Provider: 05/27/17 23:16 Source: patient, EMS Mode of arrival: EMS Limitations: no limitations - History of Present Illness Initial Comments: 76 years old female history of COPD had shortness of breath ongoing for about a month now but the last few days it got worse she denies any chest pain no 30 chest pain no fever no chills she has been coughing with some phlegm but is hard to get up the flam. She denies any headache no neck stiffness has shortness of breath no abdominal pain no frequency urgency dysuria no symptoms of TIA or CVA - Related Data Home Medications Medication Instructions Recorded Confirmed Budesonide/Formoterol Fumarate 2 puff INHALATION RT-BID 11/25/15 01/06/17 [Symbicort 80-4.5 Mcg Inhaler] Albuterol Sulfate [Proair Hfa] 2 puff INHALATION RT-Q4H PRN 01/14/16 01/06/17 Tiotropium 18 Mcg/Puff [Spiriva] 1 cap INHALATION RT-DAILY 01/14/16 01/06/17 Valsartan [Diovan] 160 mg PO DAILY 01/06/17 01/06/17 Previous Rx's Medication Instructions Recorded Cefuroxime Axetil [Ceftin] 500 mg PO BID #10 tab 01/09/17 Diltiazem Oral [Cardizem*] 30 mg PO TID #90 tab 01/09/17 guaiFENesin SYRUP 100MG/5ML 200 mg PO Q6H PRN dose 01/09/17 [Robitussin] guaiFENesin [Mucinex] 1,200 mg PO Q12HR tab 01/09/17 predniSONE 10 mg PO DIRECTED #30 tab 01/09/17 Allergies Allergy/AdvReac Type Severity Reaction Status Date / Time codeine AdvReac Nausea Verified 01/06/17 12:13 formoterol [From Perforomist] AdvReac Rapid Verified 01/06/17 14:30 Heart Rate Review of Systems ROS Statement: Those systems with pertinent positive or pertinent negative responses have been documented in the HPI. ROS Other: All systems not noted in ROS Statement are negative. Past Medical History Past Medical History: Asthma, COPD, Hypertension Additional Past Medical History / Comment(s): BRONCHITIS, HOME O2 3 LITERS N/C, PNE VACCINE AFTER AGE 65-NOT SURE OF DATE. History of Any Multi-Drug Resistant Organisms: None Reported Past Surgical History: Orthopedic Surgery Additional Past Surgical History / Comment(s): RT ROTATOR CUFF Past Anesthesia/Blood Transfusion Reactions: No Reported Reaction Past Psychological History: No Psychological Hx Reported Smoking Status: Former smoker Past Alcohol Use History: None Reported Past Drug Use History: None Reported - Past Family History Mother Family Medical History: CVA/TIA Additional Family Medical History / Comment(s): AT AGE 88 Father Family Medical History: Myocardial Infarction ([place]) Additional Family Medical History / Comment(s): OF [place] AT AGE 52 General Exam - General Exam Comments Initial Comments: General: The patient is awake and alert, in opxk-vj-qrtlsauo distress Skin: Skin is warm and dry and no rashes or lesions are noted. Eye: Pupils are equal, round and reactive to light, extra-ocular movements are intact; there is normal conjunctiva bilaterally. Ears, nose, mouth and throat: There are moist mucous membranes and no oral lesions. Neck: The neck is supple, there is no tenderness or JVD. Cardiovascular: There is a regular rate and rhythm. No murmur, rub or gallop is appreciated. Noticed tachycardia Respiratory: To auscultation bilateral, she is barely moving any air, consistent with a moderate to severe COPD Gastrointestinal: Soft, non-distended, non-tender abdomen without masses or organomegaly noted. There is no rebound or guarding present. Bowel sounds are unremarkable. Back: There is no tenderness to palpation in the midline. There is no obvious deformity. Musculoskeletal: Normal ROM, no tenderness, There is no pedal edema. There is no calf tenderness or swelling. No cords were appreciated. Neurological: CN II-XII intact, Cranial nerves III through XII are intact. There are no obvious motor or sensory deficits. Coordination appears grossly intact. Speech is normal. Psychiatric: Cooperative, appropriate mood & affect, normal judgment. Limitations: no limitations Course Vital Signs 05/27/17 05/27/17 05/28/17 23:20 23:45 00:05 Temperature 98.3 F Pulse Rate 105 H 96 96 Respiratory 18 Rate Blood Pressure 165/77 O2 Sat by Pulse 96 Oximetry 05/28/17 00:34 Temperature Pulse Rate 96 Respiratory Rate Blood Pressure O2 Sat by Pulse Oximetry I am EKG is a sinus rhythm with the shoulder HI interval HI interval is 106 QRS duration is 76 QT/QTC 342/441 review of this EKG does not reveal any ST elevation Patient was reassessed at 1250 tonight as CBC, is unremarkable CO2 is slightly high 37 troponin is negative chest x-rays unremarkable compress metabolic panel is otherwise unremarkable, patient and the family do not feel right to go home at this point she feels she still short winded will go ahead and admit her under Dr. leal he is a physician for the [facility] and Dr. Benitez be consulted Medical Decision Making - Lab Data Result diagrams: 05/27/17 23:40 05/27/17 23:40 Lab Results 05/27/17 05/27/17 05/27/17 Range/Units 23:40 23:40 23:40 WBC 4.8 (3.8-10.6) k/uL RBC 3.98 (3.80-5.40) m/uL Hgb 12.1 (11.4-16.0) gm/dL Hct 37.7 (34.0-46.0) % MCV 94.6 (80.0-100.0) fL MCH 30.3 (25.0-35.0) pg MCHC 32.0 (31.0-37.0) g/dL RDW 12.9 (11.5-15.5) % Plt Count 300 (150-450) k/uL Neutrophils % 73 % Lymphocytes % 15 % Monocytes % 8 % Eosinophils % 2 % Basophils % 1 % Neutrophils # 3.5 (1.3-7.7) k/uL Lymphocytes # 0.7 L (1.0-4.8) k/uL Monocytes # 0.4 (0-1.0) k/uL Eosinophils # 0.1 (0-0.7) k/uL Basophils # 0.0 (0-0.2) k/uL Sodium 143 (137-145) mmol/L Potassium 4.0 (3.5-5.1) mmol/L Chloride 98 (98-107) mmol/L Carbon Dioxide 37 H (22-30) mmol/L Anion Gap 8 mmol/L BUN 22 H (7-17) mg/dL Creatinine 0.60 (0.52-1.04) mg/dL Est GFR (MDRD) Af Amer >60 (>60 ml/min/1.73 sqM) Est GFR (MDRD) Non-Af >60 (>60 ml/min/1.73 sqM) Glucose 144 H (74-99) mg/dL Calcium 9.8 (8.4-10.2) mg/dL Total Bilirubin 0.3 (0.2-1.3) mg/dL AST 21 (14-36) U/L ALT 25 (9-52) U/L Alkaline Phosphatase 72 (38-126) U/L Total Creatine Kinase 63 (30-135) U/L CK-MB (CK-2) 2.7 H* (0.0-2.4) ng/mL CK-MB (CK-2) Rel Index 4.3 Troponin I <0.012 (0.000-0.034) ng/mL Total Protein 7.0 (6.3-8.2) g/dL Albumin 4.3 (3.5-5.0) g/dL Critical Care Time Total Critical Care Time: 30 Critical Care Time: History of severe lung disease, on arrival she was using accessory muscles and there was hardly any air exchange Treatment was started along with the IV steroids and IV fluids are started and she being evaluated for cardiopulmonary disease. Disposition Clinical Impression: Dyspnea, COPD with acute exacerbation Disposition: ADMITTED IP TO THIS HOSP Condition: Good Referrals: Joyce Benitez MD [Primary Care Provider] - 1-2 days
[2017-05-28 00:02] LABS: Basophils % (A) 1 %; Eosinophils # (A) 0.1 k/uL (0-0.7); Eosinophils % (A) 2 %; HCT 37.7 % (34.0-46.0); HGB 12.1 gm/dL (11.4-16.0); Lymphocytes # (A) 0.7 k/uL (1.0-4.8); Lymphocytes % (A) 15 %; MCH 30.3 pg (25.0-35.0); MCV 94.6 fL (80.0-100.0); Mean Platelet Volume 6.6; Monocytes # (A) 0.4 k/uL (0-1.0); Monocytes % (A) 8 %; Neutrophils # (A) 3.5 k/uL (1.3-7.7); Neutrophils % (A) 73 %; Platelet Count 300 k/uL (150-450); RBC 3.98 m/uL (3.80-5.40); RDW 12.9 % (11.5-15.5); WBC 4.8 k/uL (3.8-10.6)
[2017-05-28 00:05] LABS: ALT 25 U/L (9-52); AST 21 U/L (14-36); Albumin 4.3 g/dL (3.5-5.0); Alkaline Phosphatase 72 U/L (38-126); Anion Gap 8 mmol/L; Blood Urea Nitrogen 22 mg/dL (7-17); Calcium 9.8 mg/dL (8.4-10.2); Carbon Dioxide 37 mmol/L (22-30); Chloride 98 mmol/L (98-107); Glucose 144 mg/dL (74-99); Sodium 143 mmol/L (137-145); Total Bilirubin 0.3 mg/dL (0.2-1.3)
[2017-05-28 00:10] LABS: Creatine Kinase 63 U/L (30-135)
[2017-05-28 00:23] LABS: Troponin I <0.012 ng/mL (0.000-0.034)
--- NOTE | 2017-05-28 00:24 | XR ---
EXAMINATION TYPE: XR chest 1V portable DATE OF EXAM: 05/28/2017 COMPARISON: 02/18/2017 HISTORY: Pneumonia TECHNIQUE: Single frontal view of the chest is obtained. FINDINGS: There is no heart failure nor confluent pneumonic infiltrate. Costophrenic angles are parminder r. Thoracic aorta is atheromatous. There are chest leads. There is mild pulmonary hyperinflation. IMPRESSION: There is probably some COPD. No acute lung disease. No change.
[2017-05-28 00:28] LABS: Creatine Kinase MB 2.7 ng/mL (0.0-2.4)
[2017-05-28 00:47] LABS: Prothrombin Time 9.5 sec (9.0-12.0)
[2017-05-28 00:49] LABS: Partial Thromboplastin Time 21.9 sec (22.0-30.0)
[2017-05-28] MEDS ORDERED: ALBUTEROL NEBULIZED 2.5 MG/3 ML INHALATION PRN (00:56)
[2017-05-28] MEDS ORDERED: guaiFENesin SYRUP 100MG/5ML 200 MG/10 ML CUP PO PRN (00:56)
[2017-05-28] MEDS ORDERED: predniSONE 10 MG TAB PO SCH (01:00)
[2017-05-28 06:26] VITALS: BP 134/74; PULSE 93; RESP 24; TEMP 98.9
[2017-05-28] MEDS: methylPREDNISolone SOD SUCCI 125 MG/2 ML VIAL IV SCH ×2 (06:29→11:35)
--- NOTE | 2017-05-28 07:13 | P.HPIM ---
History of Present Illness H&P Date: 05/28/17 Chief Complaint: Shortness of breath 76-year-old female with past medical history of COPD on home oxygen 2 L through nasal cannula. Patient presented due to worsening shortness of breath limiting her daily activity over the past he days. He also started when patient vacuumed her house couple days ago since then she noticed worsening shortness of breath limiting his daily activity reached a point where she was changing her clothes and felt extremely winded for which she decided to come to the hospital. She reports being compliant with her inhalers and nebulizers. She is compliant with her oxygen is 2 L through nasal cannula. She has no history of intubation or ICU admission. Her last ER visit for COPD exacerbation was over 3 months ago. She denies any sick contacts recent traveling, denies any fevers or chills, denies any upper respiratory infection-like symptoms, denies any sore throat or runny nose, denies any coughing. She denies any phlegm production. She denies any sick contact. She denies daytime somnolence. In the ER she was found wheezy with very limited breath sounds on exam for which she was given IV steroids and started on COPD pathway. I saw the patient on the medical floor she was already feeling better however when she tries to take deep breaths she uses accessory muscles of respiration. However she is able to talk full sentences at this point Review of Systems Constitutional: Patient denies fever, denies chills, denies night sweating, denies significant weight changes Eyes: Patient denies visual changes, denies eye pain ENT: Patient denies ear pain, denies rhinorrhea, denies sore throat Cardiovascular: Patient denies chest pain, denies exertional dyspnea at baseline, denies peripheral leg edema, denies orthopnea, denies paroxysmal nocturnal dyspnea Respiratory:Patient as per HPI Gastrointestinal: Patient denies diarrhea, denies constipation, denies nausea , denies vomiting, denies abdominal pain Genitourinary: Patient denies dysuria, denies hematuria, denies changes in urinary habits, denies genital lesions Musculoskeletal: Patient denies muscle pain, denies joint pain Psychiatric: Patient denies changes in mood or memory, denies suicidal ideation, denies anxiety Endocrine: Patient denies heat intolerance, denies cold intolerance, denies excessive thirst, denies polyuria Neurological: Patient denies focal neurologic deficits, denies weakness, denies numbness, denies tingling Hem/Lymphatic: Patient denies bleeding tendency, denies bruising, denies swollen lymph glands Allergic/Immun: Patient denies recent allergic reactions Skin: Patient denies rashes, denies pruritis, denies ulcers Past Medical History Past Medical History: Asthma, COPD, Hypertension Additional Past Medical History / Comment(s): BRONCHITIS, HOME O2 3 LITERS N/C, PNE VACCINE AFTER AGE 65-NOT SURE OF DATE. History of Any Multi-Drug Resistant Organisms: None Reported Past Surgical History: Orthopedic Surgery Additional Past Surgical History / Comment(s): RT ROTATOR CUFF Past Anesthesia/Blood Transfusion Reactions: No Reported Reaction Past Psychological History: No Psychological Hx Reported Smoking Status: Former smoker Past Alcohol Use History: None Reported Additional Past Alcohol Use History / Comment(s): STARTED SMOKING AT AGE 19, QUIT 4 years ago Past Drug Use History: None Reported - Past Family History Mother Family Medical History: CVA/TIA Additional Family Medical History / Comment(s): AT AGE 88 Father Family Medical History: Myocardial Infarction ([place]) Additional Family Medical History / Comment(s): OF [place] AT AGE 52 Medications and Allergies Home Medications Medication Instructions Recorded Confirmed Type Budesonide/Formoterol Fumarate 2 puff INHALATION RT-BID 11/25/15 01/06/17 History [Symbicort 80-4.5 Mcg Inhaler] Albuterol Sulfate [Proair Hfa] 2 puff INHALATION RT-Q4H PRN 01/14/16 01/06/17 History Tiotropium 18 Mcg/Puff [Spiriva] 1 cap INHALATION RT-DAILY 01/14/16 01/06/17 History Valsartan [Diovan] 160 mg PO DAILY 01/06/17 01/06/17 History Cefuroxime Axetil [Ceftin] 500 mg PO BID #10 tab 01/09/17 Rx Diltiazem Oral [Cardizem*] 30 mg PO TID #90 tab 01/09/17 Rx guaiFENesin SYRUP 100MG/5ML 200 mg PO Q6H PRN dose 01/09/17 Rx [Robitussin] guaiFENesin [Mucinex] 1,200 mg PO Q12HR tab 01/09/17 Rx predniSONE 10 mg PO DIRECTED #30 tab 01/09/17 Rx Allergies Allergy/AdvReac Type Severity Reaction Status Date / Time codeine AdvReac Nausea Verified 01/06/17 12:13 formoterol [From Perforomist] AdvReac Rapid Verified 01/06/17 14:30 Heart Rate Physical Exam Vitals: Vital Signs Temp Pulse Pulse Resp BP BP Pulse Ox 05/28/17 02:22 98.6 F 100 20 140/65 98 05/28/17 01:24 93 18 153/69 96 05/28/17 00:34 96 05/28/17 00:05 96 05/27/17 23:45 96 05/27/17 23:20 98.3 F 105 H 18 165/77 96 Intake and Output 05/27/17 05/27/17 05/28/17 14:59 22:59 06:59 Other: Weight 47.627 kg Patient Weight 05/28/17 06:59 Weight 47.627 kg Constitutional: No acute distress, conversant, pleasant Eyes: Anicteric sclerae, moist conjunctiva, no lid-lag Pupils equal round reactive to light ENMT: NC/AT Oropharynx clear, no erythema, exudates Neck: Supple, FROM, no masses, or JVD No carotid bruits No thyromegaly Lungs: Decreased breath sounds overall, prolonged expiratory phase no appreciated wheezes, no crackles. Clear to percussion Patient using accessory muscles of respiration when trying to take deep breaths Cardiovascular: Heart regular in rate and rhythm, No murmurs, gallops, or rubs No peripheral edema Abdominal: Soft Nontender, no guarding, rebound or rigidity Abdomen moving with respiration Normoactive bowel sounds No hepatomegaly, No splenomegaly No palpable mass No abdominal wall hernia noted Skin: Normal temperature, tone, texture, turgor No induration No subcutaneous nodules No rash, lesions No ulcers Extremities: No digital cyanosis No clubbing Pedal pulses intact and symmetrical Radial pulses intact and symmetrical No calf tenderness Psychiatric: Alert and oriented to person, place and time Appropriate affect fair judgment Neuro Muscles Strength 5/5 in all 4 extremities Sensation to light touch grossly present throughout Cranial nerves II-XII grossly intact No focal sensory deficits Lymphatics: no palpable cervical or supraclavicular , or inguinal lymph nodes Results CBC & Chem 7: 05/27/17 23:40 05/27/17 23:40 Labs: Abnormal Lab Results - Last 24 Hours (Table) 05/27/17 05/27/17 05/27/17 Range/Units 23:40 23:40 23:40 Lymphocytes # 0.7 L (1.0-4.8) k/uL APTT (22.0-30.0) sec Carbon Dioxide 37 H (22-30) mmol/L BUN 22 H (7-17) mg/dL Glucose 144 H (74-99) mg/dL CK-MB (CK-2) 2.7 H* (0.0-2.4) ng/mL 05/27/17 Range/Units 23:40 Lymphocytes # (1.0-4.8) k/uL APTT 21.9 L (22.0-30.0) sec Carbon Dioxide (22-30) mmol/L BUN (7-17) mg/dL Glucose (74-99) mg/dL CK-MB (CK-2) (0.0-2.4) ng/mL Thrombosis Risk Factor Assmnt - Choose All That Apply Any of the Below Risk Factors Present?: Yes Each Factor Represents 1 point: Abnormal pulmonary function (COPD) Other Risk Factors: Yes Each Risk Factor Represents 3 Points: Age 75 years or older Other congenital or acquired thrombophilia - If yes, enter type in comment: No Thrombosis Risk Factor Assessment Total Risk Factor Score: 4 Thrombosis Risk Factor Assessment Level: Moderate Risk Assessment and Plan (1) COPD with acute exacerbation Narrative/Plan: Acute exacerbation of chronic COPD Possibly precipitated due to dust exposure while vacuuming her house Patient was counseled to obtain a vacuum with HEPA filter, and avoid exposure to dust COPD pathway, IV parenteral steroids, DuoNeb's nebulizer Continue home inhalers Pulmonary consultation for Dr. Michaud who is PCP of the patient By mouth steroid upon discharge Assess oxygen requirement upon discharge Current Visit: Yes Status: Acute Code(s): J44.1 - CHRONIC OBSTRUCTIVE PULMONARY DISEASE W (ACUTE) EXACERBATION SNOMED Code(s): 051725014 (2) Hypertension Narrative/Plan: Continue home medications Slightly elevated blood pressure readings continue to monitor currently asymptomatic Current Visit: Yes Status: Acute Code(s): I10 - ESSENTIAL (PRIMARY) HYPERTENSION SNOMED Code(s): 11414752 (3) DVT prophylaxis Narrative/Plan: Heparin subcu 3 times a day Current Visit: Yes Status: Acute Code(s): TEQ3510 - SNOMED Code(s): 607121050 Plan: Surrogate decision-maker: patient Braden CODE STATUS:full code DVT prophylaxis: heparin sc Discussed with: Patient, ER, RN Anticipated discharge: 48-[address]: home A total of 45 minutes were spent on the care of this complex patient more than 50% of the time was spent in counseling and care coordination.
[2017-05-28] MEDS ORDERED: NALOXONE 0.4 MG/ML 1 ML VIAL IV PRN (07:14)
[2017-05-28 07:16] LABS: Glucose,Whole Blood 149 mg/dL (75-99)
[2017-05-28] MEDS ORDERED: IPRATROPIUM 0.5 MG/2.5 ML NEBU INHALATION SCH (08:00)
[2017-05-28] MEDS ORDERED: SYMBICORT 80-4.5 MCG INHALER INHALATION SCH (08:00)
[2017-05-28] MEDS ORDERED: BUDESONIDE 0.5 MG/2 ML NEBU INHALATION SCH (08:00)
[2017-05-28] MEDS ORDERED: HEPARIN SODIUM,PORCINE 5,000 UNIT/ML 1 ML VIAL SQ SCH (08:00)
[2017-05-28] MEDS ORDERED: VALSARTAN 160 MG TAB PO SCH (09:00)
[2017-05-28] MEDS ORDERED: DILTIAZEM ORAL 30 MG TAB PO SCH (09:00)
[2017-05-28] MEDS ORDERED: guaiFENesin 600 MG TABLET.ER PO SCH (09:00)
[2017-05-28 12:03] LABS: Glucose,Whole Blood 144 mg/dL (75-99)
--- NOTE | 2017-05-28 12:05 | P.CNPUL ---
History of Present Illness Consult date: 05/28/17 Reason for consult: dyspnea, cough, COPD, hypoxemia, abnormal CXR/CT Chief complaint: Shortness of breath, difficulty breathing, chest congestion, cough History of present illness: Consult dated 05/28/2017 This is a 76-year-old female well-known to our service. She has history of pretty severe COPD. She comes into the hospital complaints of shortness of breath going on for a couple weeks to a month or so. His been progressive in nature. The patient's wheezing and coughing. Not producing much or any phlegm. Most of the cough is dry. No fever or chills. No chest pain or chest tightness. The patient looks pretty good and states she feels pretty good. Think she might want to go home. She is in good medication for her COPD including Spiriva and albuterol and Symbicort. She also takes Diovan for her high blood pressure. Other than that she's doing reasonably well. States she' s not smoking anymore. Denies hemoptysis. Denies any chest pain or chest discomfort. No fever or chills. No GI or complaints at this time. She apparently is on home O2. She uses it 2-3 L/m. Review of Systems 12 point is positive for shortness of breath chest tightness wheezing and cough. No phlegm production. No fever no chills. No chest pain. No chest discomfort. Past Medical History Past Medical History: Asthma, COPD, Hypertension Additional Past Medical History / Comment(s): BRONCHITIS, HOME O2 3 LITERS N/C, PNE VACCINE AFTER AGE 65-NOT SURE OF DATE. History of Any Multi-Drug Resistant Organisms: None Reported Past Surgical History: Orthopedic Surgery Additional Past Surgical History / Comment(s): RT ROTATOR CUFF Past Anesthesia/Blood Transfusion Reactions: No Reported Reaction Past Psychological History: No Psychological Hx Reported Smoking Status: Former smoker Past Alcohol Use History: None Reported Additional Past Alcohol Use History / Comment(s): STARTED SMOKING AT AGE 19, QUIT 4 years ago Past Drug Use History: None Reported - Past Family History Mother Family Medical History: CVA/TIA Additional Family Medical History / Comment(s): AT AGE 88 Father Family Medical History: Myocardial Infarction ([place]) Additional Family Medical History / Comment(s): OF [place] AT AGE 52 Medications and Allergies Home Medications Medication Instructions Recorded Confirmed Type Budesonide/Formoterol Fumarate 2 puff INHALATION RT-BID 11/25/15 05/28/17 History [Symbicort 80-4.5 Mcg Inhaler] Albuterol Sulfate [Proair Hfa] 2 puff INHALATION RT-Q4H PRN 01/14/16 05/28/17 History Valsartan [Diovan] 160 mg PO DAILY 01/06/17 05/28/17 History Diltiazem Oral [Cardizem*] 30 mg PO TID #90 tab 01/09/17 05/28/17 Rx Allergies Allergy/AdvReac Type Severity Reaction Status Date / Time codeine AdvReac Nausea Verified 05/28/17 08:08 formoterol [From Perforomist] AdvReac Rapid Verified 05/28/17 08:08 Heart Rate Physical Exam Osteopathic Statement: *. No significant issues noted on an osteopathic structural exam other than those noted in the History and Physical/Consult. Vitals: Vital Signs Temp Pulse Pulse Resp BP BP Pulse Ox 05/28/17 07:14 99 05/28/17 06:25 98.9 F 93 24 134/74 98 05/28/17 02:22 98.6 F 100 20 140/65 98 05/28/17 01:24 93 18 153/69 96 05/28/17 00:34 96 05/28/17 00:05 96 05/27/17 23:45 96 05/27/17 23:20 98.3 F 105 H 18 165/77 96 Intake and Output 05/27/17 05/28/17 05/28/17 22:59 06:59 14:59 Other: # Voids 1 Weight 47.627 kg No acute distress, oriented 3. Nasal O2 in place. HEENT examination is grossly unremarkable. Mucous membranes are moist. No oral lesions. Neck supple. Full range of motion. No adenopathy thyromegaly or neck vein distention. Cardiovascular examination reveals regular rhythm rate. S1-S2 normal. No S3 or S4. No discernible murmur noted. Lungs reveal mostly clear breath sounds. A few scattered mild rhonchi. No distinct wheezes. Slight prolongation on forced maneuver. No crackles. All all, lung sounds are quite good.. Abdomen soft bowel sounds are heard. No masses or tenderness. Extremities are intact. No cyanosis clubbing or edema. Skin is without rash or lesion. Neurologic examination is brief but nonfocal. Results - Laboratory Findings CBC and BMP: 05/27/17 23:40 05/27/17 23:40 PT/INR, D-dimer PT 9.5 sec (9.0-12.0) 05/27/17 23:40 INR 1.0 (<1.2) 05/27/17 23:40 Abnormal lab findings: Abnormal Labs 05/27/17 05/27/17 05/27/17 23:40 23:40 23:40 Lymphocytes # 0.7 L APTT Carbon Dioxide 37 H BUN 22 H Glucose 144 H POC Glucose (mg/dL) CK-MB (CK-2) 2.7 H* 05/27/17 05/28/17 23:40 07:00 Lymphocytes # APTT 21.9 L Carbon Dioxide BUN Glucose POC Glucose (mg/dL) 149 H CK-MB (CK-2) - Diagnostic Findings Chest x-ray: image reviewed (Chest x-ray labs and medications all reviewed.) Assessment and Plan Assessment: Assessment COPD exacerbation Possible purulent tracheobronchitis History of hypertension Chronic hypoxemia with home oxygen use Previous history of heavy tobacco use Plan: Plan dated 05/28/2017 The patient seems be doing relatively well. She doesn't know why she was admitted to the hospital. States that she's feeling much better now. Could discharged home on a short course of antibiotics and a prednisone burst and taper. All lab the primary service to decide that. Other than that, she is doing very well. She states that her breathing is much improved. She's not wheezing. Not coughing. Not producing any phlegm. There is no fever or chills. Time with Patient: Greater than 30
[2017-05-28] MEDS ORDERED: IPRATROPIUM-ALBUTEROL 3 ML NEB INHALATION PRN (12:06)
--- NOTE | 2017-05-28 12:40 | P.DS ---
Providers Date of admission: 05/28/17 00:53 Attending physician: Finn He MD Consults: 05/28/17 00:52 Consult Physician Stat Consulting Provider: Joyce Benitez Consult Reason/Comments: Extremities exacerbation of COPD Do you want consulting provider notified?: Yes Primary care physician: Joyce Benitez - Discharge Diagnosis(es) (1) Hypertension Current Visit: Yes Status: Acute (2) Acute exacerbation of chronic obstructive airways disease Current Visit: No Status: Acute Hospital Course: Patient is a 76-year-old female with a known history of severe COPD on 2 L home oxygen who was admitted with an acute exacerbation of COPD, worsening for the past few weeks though significantly worsened yesterday while vacuuming her house , patient thinks she was overexerting herself along with the dust from vacuuming. Patient denies any productive cough, states she does have an occasional cough which is nonproductive. No recent illness, fever, chills, sore throat. The patient was started on bronchodilators in the ED along with methylprednisolone and levofloxacin. As the patient was not having increased amount of purulent sputum, no role for antibiotics and discontinued. Patient feels she is back at her baseline today, currently at her baseline 2 L oxygen and ambulating to and from the bathroom without assistance and not requiring nebulized bronchodilators. Patient to return home today with a prednisone course. GENERAL: Well-developed, well-nourished in no apparent distress. AAOx4. On home 2L O2 HEENT: Normocephalic and atraumatic. Extraocular muscles are intact. Pupils are equal, round, and reactive to light and accommodation.Mucous membranes are moist NECK: Supple. No JVD LUNGS: Bilateral air entry, prolonged expiratory phase however no noted wheeze, rhonci. Normal respiratory effort, no accessory muscle use HEART: S1 and S2 of normal intensity, no appreciated murmurs ABDOMEN: Soft, nontender, and nondistended. Positive bowel sounds EXTREMITIES: No noted edema. NEUROLOGIC: Cranial nerves II through XII are grossly intact. PSYCHIATRIC: Denies suicidal or homicidal ideations. Appropriate affect. SKIN: No ulceration noted. No rash noted. Patient Condition at Discharge: Fair Plan - Discharge Summary Discharge Rx Participant: No New Discharge Prescriptions: New predniSONE 40 mg PO DAILY #5 tab Continue Budesonide/Formoterol Fumarate [Symbicort 80-4.5 Mcg Inhaler] 2 puff INHALATION RT-BID Albuterol Sulfate [Proair Hfa] 2 puff INHALATION RT-Q4H PRN PRN Reason: Shortness Of Breath Valsartan [Diovan] 160 mg PO DAILY Diltiazem Oral [Cardizem*] 30 mg PO TID #90 tab Discharge Medication List Budesonide/Formoterol Fumarate [Symbicort 80-4.5 Mcg Inhaler] 2 puff INHALATION RT-BID 11/25/15 [History] Albuterol Sulfate [Proair Hfa] 2 puff INHALATION RT-Q4H PRN 01/14/16 [History] Valsartan [Diovan] 160 mg PO DAILY 01/06/17 [History] Diltiazem Oral [Cardizem*] 30 mg PO TID #90 tab 01/09/17 [Rx] predniSONE 40 mg PO DAILY #5 tab 05/28/17 [Rx] Follow up Appointment(s)/Referral(s): Joyce Benitez MD [Primary Care Provider] - 1-2 days Discharge Disposition: HOME SELF-CARE
[2017-05-28] MEDS ORDERED: IPRATROPIUM-ALBUTEROL 3 ML NEB INHALATION SCH (16:00)
[2017-05-28] MEDS ORDERED: SYMBICORT 160-4.5 MCG INHALER INHALATION SCH (20:00)
[2017-05-28] MEDS ORDERED: LEVOFLOXACIN 500 MG TAB PO SCH (21:00)
== END 2017-05-28 14:26 | disposition home or self-care (01) ==
LOC: EC 23:15 → 4MS4W 05-28 00:53
PROVIDERS: ADMIT Internal Medicine; ATTEND Internal Medicine
DX: J44.1 Chronic obstructive pulmonary disease with (acute) exacerbation (principal); I10 Essential (primary) hypertension; Z99.81 Dependence on supplemental oxygen; J40 Bronchitis, not specified as acute or chronic; R09.02 Hypoxemia; Z79.899 Other long term (current) drug therapy; Z79.51 Long term (current) use of inhaled steroids; Z87.891 Personal history of nicotine dependence; Z88.5 Allergy status to narcotic agent; Z88.8 Allergy status to other drugs, medicaments and biological substances; Z82.49 Family history of ischemic heart disease and other diseases of the circulatory system; Z82.3 Family history of stroke
CPT/HCPCS: 96372; 96376; 96361; 96374; 99291; 36415; 94645; 93005; 80053; 82550; 82553; 84484; 85025; 85610; 85730; 71045; G0378; J1644; J2930

== ENCOUNTER 2017-08-04 19:48 | Observation (INO) | payer MEDICARE, BC ==
[2017-08-04] MEDS ORDERED: IPRATROPIUM-ALBUTEROL 3 ML NEB INHALATION STA ×2 (19:51→21:08)
[2017-08-04] MEDS ORDERED: hydrALAZINE HCL 20 MG/ML 1 ML VIAL IVP STA (20:07)
--- NOTE | 2017-08-04 20:16 | ED ---
General Adult HPI - General Chief complaint: Shortness of Breath Stated complaint: JADEN Time Seen by Provider: 08/04/17 19:50 Source: patient, RN notes reviewed, old records reviewed Mode of arrival: EMS Limitations: no limitations - History of Present Illness Initial comments: This is a 76-year-old female to the ER for evaluation. This patient presents for evaluation regarding shortness of breath. Patient has history of COPD and heart disease. Patient noted tonight that her oxygen tank was unplugged, she did blood in was at this point without is severely short of breath. Second breathing treatment with no significant help, patient called EMS upon arrival to ER patient was given breathing treatment now at this time she states she feels much better, no chest pain and shortness of breath has resolved. Patient denies any other significant complaints - Related Data Home Medications Medication Instructions Recorded Confirmed Albuterol Sulfate [Proair Hfa] 2 puff INHALATION RT-Q4H PRN 01/14/16 08/05/17 Valsartan [Diovan] 160 mg PO DAILY 01/06/17 08/05/17 Albuterol Nebulized [Ventolin 2.5 mg INHALATION RT-Q4H PRN 08/05/17 08/05/17 Nebulized] Budesonide/Formoterol Fumarate 2 puff INHALATION RT-BID 08/05/17 08/05/17 [Symbicort 160-4.5 Mcg Inhaler] predniSONE 5 mg PO DAILY 08/05/17 08/05/17 Allergies Allergy/AdvReac Type Severity Reaction Status Date / Time codeine AdvReac Nausea Verified 08/05/17 08:38 formoterol [From Perforomist] AdvReac Rapid Verified 08/05/17 08:38 Heart Rate Review of Systems ROS Statement: Those systems with pertinent positive or pertinent negative responses have been documented in the HPI. ROS Other: All systems not noted in ROS Statement are negative. Past Medical History Past Medical History: Asthma, COPD, Hypertension Additional Past Medical History / Comment(s): BRONCHITIS, HOME O2 3 LITERS N/C, PNE VACCINE AFTER AGE 65-NOT SURE OF DATE. History of Any Multi-Drug Resistant Organisms: None Reported Past Surgical History: Orthopedic Surgery Additional Past Surgical History / Comment(s): RT ROTATOR CUFF Past Anesthesia/Blood Transfusion Reactions: No Reported Reaction Past Psychological History: No Psychological Hx Reported Smoking Status: Former smoker Past Alcohol Use History: None Reported Past Drug Use History: None Reported - Past Family History Mother Family Medical History: CVA/TIA Additional Family Medical History / Comment(s): AT AGE 88 Father Family Medical History: Myocardial Infarction ([place]) Additional Family Medical History / Comment(s): OF [place] AT AGE 52 General Exam Limitations: no limitations General appearance: alert, in no apparent distress Head exam: Present: atraumatic, normocephalic, normal inspection Eye exam: Present: normal appearance, PERRL, EOMI. Absent: scleral icterus, conjunctival injection, periorbital swelling ENT exam: Present: normal exam, mucous membranes moist Neck exam: Present: normal inspection. Absent: tenderness, meningismus, lymphadenopathy Respiratory exam: Present: normal lung sounds bilaterally. Absent: respiratory distress, wheezes, rales, rhonchi, stridor Cardiovascular Exam: Present: regular rate, normal rhythm, normal heart sounds. Absent: systolic murmur, diastolic murmur, rubs, gallop, clicks GI/Abdominal exam: Present: soft, normal bowel sounds. Absent: distended, tenderness, guarding, rebound, rigid Extremities exam: Present: normal inspection, full ROM, normal capillary refill. Absent: tenderness, pedal edema, joint swelling, calf tenderness Back exam: Present: normal inspection Neurological exam: Present: alert, oriented X3, CN II-XII intact Psychiatric exam: Present: normal affect, normal mood Skin exam: Present: warm, dry, intact, normal color. Absent: rash Course Vital Signs 08/04/17 08/04/17 08/04/17 19:53 20:13 20:14 Temperature 98.4 F Pulse Rate 108 H 103 H Respiratory 24 24 Rate Blood Pressure 193/85 O2 Sat by Pulse 98 Oximetry 08/04/17 08/04/17 08/04/17 20:22 20:46 21:00 Temperature Pulse Rate 108 H 99 82 Respiratory 20 20 Rate Blood Pressure 193/85 159/65 O2 Sat by Pulse 99 96 Oximetry 08/04/17 08/04/17 08/04/17 21:16 21:23 21:43 Temperature 98.2 F Pulse Rate 121 H 112 H 106 H Respiratory 22 Rate Blood Pressure 136/70 O2 Sat by Pulse 96 Oximetry - Reevaluation(s) Reevaluation #1: 08/04/17 20:16 Patient continues to feel well, much better after breathing treatment EKG Findings - EKG Comments: EKG Findings:: EKG shows sinus tachycardia rate of 109, UT 1:30, QRS 70, QTc 444 Medical Decision Making - Medical Decision Making 76 female who presents for COPD exacerbation. Patient does have improvement breathing does not for vaginal to be discharged home. We'll admit for continued breathing treatments and management - Lab Data Result diagrams: 08/04/17 20:03 08/04/17 20:03 Lab Results 08/04/17 08/04/17 08/04/17 Range/Units 20:03 20:03 20:03 WBC 5.2 (3.8-10.6) k/uL RBC 3.64 L (3.80-5.40) m/uL Hgb 11.2 L (11.4-16.0) gm/dL Hct 33.2 L (34.0-46.0) % MCV 91.0 (80.0-100.0) fL MCH 30.8 (25.0-35.0) pg MCHC 33.9 (31.0-37.0) g/dL RDW 14.0 (11.5-15.5) % Plt Count 358 (150-450) k/uL Neutrophils % 73 % Lymphocytes % 16 % Monocytes % 7 % Eosinophils % 1 % Basophils % 0 % Neutrophils # 3.8 (1.3-7.7) k/uL Lymphocytes # 0.8 L (1.0-4.8) k/uL Monocytes # 0.4 (0-1.0) k/uL Eosinophils # 0.1 (0-0.7) k/uL Basophils # 0.0 (0-0.2) k/uL PT (9.0-12.0) sec INR (<1.2) APTT (22.0-30.0) sec Sodium 143 (137-145) mmol/L Potassium 4.0 (3.5-5.1) mmol/L Chloride 103 (98-107) mmol/L Carbon Dioxide 29 (22-30) mmol/L Anion Gap 11 mmol/L BUN 23 H (7-17) mg/dL Creatinine 0.70 (0.52-1.04) mg/dL Est GFR (CKD-EPI)AfAm >90 (>60 ml/min/1.73 sqM) Est GFR (CKD-EPI)NonAf 85 (>60 ml/min/1.73 sqM) Glucose 122 H (74-99) mg/dL Calcium 9.1 (8.4-10.2) mg/dL Magnesium 1.9 (1.6-2.3) mg/dL Total Bilirubin 0.2 (0.2-1.3) mg/dL AST 23 (14-36) U/L ALT 15 (9-52) U/L Alkaline Phosphatase 74 (38-126) U/L Total Creatine Kinase 86 (30-135) U/L CK-MB (CK-2) 3.0 H* (0.0-2.4) ng/mL CK-MB (CK-2) Rel Index 3.5 Troponin I <0.012 (0.000-0.034) ng/mL NT-Pro-B Natriuret Pep pg/mL Total Protein 6.0 L (6.3-8.2) g/dL Albumin 3.9 (3.5-5.0) g/dL 08/04/17 08/04/17 Range/Units 20:03 20:03 WBC (3.8-10.6) k/uL RBC (3.80-5.40) m/uL Hgb (11.4-16.0) gm/dL Hct (34.0-46.0) % MCV (80.0-100.0) fL MCH (25.0-35.0) pg MCHC (31.0-37.0) g/dL RDW (11.5-15.5) % Plt Count (150-450) k/uL Neutrophils % % Lymphocytes % % Monocytes % % Eosinophils % % Basophils % % Neutrophils # (1.3-7.7) k/uL Lymphocytes # (1.0-4.8) k/uL Monocytes # (0-1.0) k/uL Eosinophils # (0-0.7) k/uL Basophils # (0-0.2) k/uL PT 9.6 (9.0-12.0) sec INR 1.0 (<1.2) APTT 21.4 L (22.0-30.0) sec Sodium (137-145) mmol/L Potassium (3.5-5.1) mmol/L Chloride (98-107) mmol/L Carbon Dioxide (22-30) mmol/L Anion Gap mmol/L BUN (7-17) mg/dL Creatinine (0.52-1.04) mg/dL Est GFR (CKD-EPI)AfAm (>60 ml/min/1.73 sqM) Est GFR (CKD-EPI)NonAf (>60 ml/min/1.73 sqM) Glucose (74-99) mg/dL Calcium (8.4-10.2) mg/dL Magnesium (1.6-2.3) mg/dL Total Bilirubin (0.2-1.3) mg/dL AST (14-36) U/L ALT (9-52) U/L Alkaline Phosphatase (38-126) U/L Total Creatine Kinase (30-135) U/L CK-MB (CK-2) (0.0-2.4) ng/mL CK-MB (CK-2) Rel Index Troponin I (0.000-0.034) ng/mL NT-Pro-B Natriuret Pep 224 pg/mL Total Protein (6.3-8.2) g/dL Albumin (3.5-5.0) g/dL - Radiology Data Radiology results: report reviewed (Chest x-rays negative for acute disease), image reviewed Disposition Clinical Impression: Acute exacerbation of chronic obstructive airways disease, COPD with acute exacerbation, Hypoxemia Disposition: ADMITTED IP TO THIS HOSP Condition: Good Is patient prescribed a controlled substance at d/c from ED?: No
[2017-08-04 20:24] LABS: Basophils % (A) 0 %; Eosinophils # (A) 0.1 k/uL (0-0.7); Eosinophils % (A) 1 %; HCT 33.2 % (34.0-46.0); HGB 11.2 gm/dL (11.4-16.0); Lymphocytes # (A) 0.8 k/uL (1.0-4.8); Lymphocytes % (A) 16 %; MCH 30.8 pg (25.0-35.0); MCHC 33.9 g/dL (31.0-37.0); Mean Platelet Volume 6.7; Monocytes # (A) 0.4 k/uL (0-1.0); Monocytes % (A) 7 %; Neutrophils # (A) 3.8 k/uL (1.3-7.7); Neutrophils % (A) 73 %; Platelet Count 358 k/uL (150-450); RBC 3.64 m/uL (3.80-5.40); WBC 5.2 k/uL (3.8-10.6)
[2017-08-04 20:47] LABS: Prothrombin Time 9.6 sec (9.0-12.0)
[2017-08-04 20:52] LABS: ALT 15 U/L (9-52); AST 23 U/L (14-36); Albumin 3.9 g/dL (3.5-5.0); Alkaline Phosphatase 74 U/L (38-126); Anion Gap 11 mmol/L; Blood Urea Nitrogen 23 mg/dL (7-17); Calcium 9.1 mg/dL (8.4-10.2); Carbon Dioxide 29 mmol/L (22-30); Chloride 103 mmol/L (98-107); Glucose 122 mg/dL (74-99); Magnesium 1.9 mg/dL (1.6-2.3); Sodium 143 mmol/L (137-145); Total Bilirubin 0.2 mg/dL (0.2-1.3)
[2017-08-04 20:55] LABS: Creatine Kinase 86 U/L (30-135)
[2017-08-04 21:03] LABS: Partial Thromboplastin Time 21.4 sec (22.0-30.0)
[2017-08-04] MEDS ORDERED: methylPREDNISolone SOD SUCCI 125 MG/2 ML VIAL IV STA (21:04)
[2017-08-04 21:09] LABS: Troponin I <0.012 ng/mL (0.000-0.034)
[2017-08-04] MEDS ORDERED: IPRATROPIUM-ALBUTEROL 3 ML NEB INHALATION PRN (21:27)
--- NOTE | 2017-08-04 21:50 | XR ---
EXAMINATION TYPE: XR chest 2V DATE OF EXAM: 08/04/2017 COMPARISON: 05/28/2017 INDICATION: Difficulty breathing TECHNIQUE: Frontal and lateral views of the chest are obtained. FINDINGS: The heart size is normal. The pulmonary vasculature is normal. Punctate granuloma may be in the periphery of the right upper lobe present previously. There is hyper inflation. Correlate for emphysematous change. On the lateral projection some minimal posterior costo phrenic angle effusion is present. IMPRESSION: 1. Mild emphysematous change. 2. Minimal posterior pleural effusion may be present.
[2017-08-04 22:07] VITALS: BMI 19.2
[2017-08-04] MEDS: methylPREDNISolone SOD SUCCI 125 MG/2 ML VIAL IV SCH (23:45)
[2017-08-05] MEDS: methylPREDNISolone SOD SUCCI 125 MG/2 ML VIAL IV SCH ×2 (04:53→12:54)
[2017-08-05] MEDS: IPRATROPIUM-ALBUTEROL 3 ML NEB INHALATION SCH ×2 (07:19→10:55)
[2017-08-05 07:22] VITALS: BP 135/81; RESP 18; TEMP 97.4
[2017-08-05] MEDS ORDERED: ENOXAPARIN 40 MG/0.4 ML SYRINGE SQ SCH (09:00)
[2017-08-05 11:09] VITALS: PULSE 92
--- NOTE | 2017-08-05 11:27 | P.HPIM ---
History of Present Illness 76-year-old female to the ER for evaluation. This patient presents for evaluation regarding shortness of breath. Patient has history of COPD and heart disease. Patient noted tonight that her oxygen tank was unplugged, she did blood in was at this point without is severely short of breath. Second breathing treatment with no significant help, patient called EMS upon arrival to ER patient was given breathing treatment now at this time she states she feels much better, no chest pain and shortness of breath has resolved. Patient denies any other significant complaints. I valid the patient today patient denied any significant cough or patient is not wheezing at this point of time patient will not need any systemic steroids will ablate the patient is a patient is saturating well on 3 L of oxygen patient will be discharged today patient does not have any pneumonia on the chest x-ray Review of Systems REVIEW OF SYSTEMS: CONSTITUTIONAL: No fever, no malaise, no fatigue. HEENT: No recent visual problems or hearing problems. Denied any sore throat. CARDIOVASCULAR: No chest pain, orthopnea, PND, no palpitations, no syncope. PULMONARY: No shortness of breath, no cough, no hemoptysis. GASTROINTESTINAL: No diarrhea, no nausea, no vomiting, no abdominal pain. Normoactive bowel sounds. NEUROLOGICAL: No headaches, no weakness, no numbness. HEMATOLOGICAL: Denies any bleeding or petechiae. GENITOURINARY: Denies any burning micturition, frequency, or urgency. MUSCULOSKELETAL/RHEUMATOLOGICAL: Denies any joint pain, swelling, or any muscle pain. ENDOCRINE: Denies any polyuria or polydipsia. The rest of the 14-point review of systems is negative. Past Medical History Past Medical History: Asthma, COPD, Hypertension Additional Past Medical History / Comment(s): BRONCHITIS, HOME O2 3 LITERS N/C, PNE VACCINE AFTER AGE 65-NOT SURE OF DATE. History of Any Multi-Drug Resistant Organisms: None Reported Past Surgical History: Orthopedic Surgery Additional Past Surgical History / Comment(s): RT ROTATOR CUFF Past Anesthesia/Blood Transfusion Reactions: No Reported Reaction Past Psychological History: No Psychological Hx Reported Smoking Status: Former smoker Past Alcohol Use History: None Reported Additional Past Alcohol Use History / Comment(s): STARTED SMOKING AT AGE 19, QUIT 4 years ago Past Drug Use History: None Reported - Past Family History Mother Family Medical History: CVA/TIA Additional Family Medical History / Comment(s): AT AGE 88 Father Family Medical History: Myocardial Infarction ([place]) Additional Family Medical History / Comment(s): OF [place] AT AGE 52 Medications and Allergies Home Medications Medication Instructions Recorded Confirmed Type Albuterol Sulfate [Proair Hfa] 2 puff INHALATION RT-Q4H PRN 01/14/16 08/05/17 History Valsartan [Diovan] 160 mg PO DAILY 01/06/17 08/05/17 History Albuterol Nebulized [Ventolin 2.5 mg INHALATION RT-Q4H PRN 08/05/17 08/05/17 History Nebulized] Budesonide/Formoterol Fumarate 2 puff INHALATION RT-BID 08/05/17 08/05/17 History [Symbicort 160-4.5 Mcg Inhaler] predniSONE 5 mg PO DAILY 08/05/17 08/05/17 History Allergies Allergy/AdvReac Type Severity Reaction Status Date / Time codeine AdvReac Nausea Verified 08/05/17 08:38 formoterol [From Perforomist] AdvReac Rapid Verified 08/05/17 08:38 Heart Rate Physical Exam Vitals: Vital Signs Temp Pulse Pulse Resp BP BP Pulse Ox 08/05/17 11:07 92 08/05/17 10:55 94 08/05/17 07:29 82 08/05/17 07:19 86 99 08/05/17 07:05 97.4 F L 90 18 135/81 96 08/04/17 22:03 98.3 F 119 H 20 179/85 95 08/04/17 21:57 98.3 F 20 179/85 95 08/04/17 21:43 98.2 F 106 H 22 136/70 96 08/04/17 21:23 112 H 08/04/17 21:16 121 H 08/04/17 21:00 82 20 159/65 96 08/04/17 20:46 99 20 193/85 99 08/04/17 20:22 108 H 08/04/17 20:14 24 08/04/17 20:13 103 H 08/04/17 19:53 98.4 F 108 H 24 193/85 98 Intake and Output 08/04/17 08/05/17 08/05/17 22:59 06:59 14:59 Other: Voiding Method Bedside Commode # Voids 1 1 Weight 47.627 kg 47.627 kg PHYSICAL EXAMINATION: GENERAL: The patient is alert and oriented x3, not in any acute distress. Well developed, well nourished. HEENT: Pupils are round and equally reacting to light. EOMI. No scleral icterus. No conjunctival pallor. Normocephalic, atraumatic. No pharyngeal erythema. No thyromegaly. CARDIOVASCULAR: S1 and S2 present. No murmurs, rubs, or gallops. PULMONARY: Chest is clear to auscultation, no wheezing or crackles. ABDOMEN: Soft, nontender, nondistended, normoactive bowel sounds. No palpable organomegaly. MUSCULOSKELETAL: No joint swelling or deformity. EXTREMITIES: No cyanosis, clubbing, or pedal edema. NEUROLOGICAL: Gross neurological examination did not reveal any focal deficits. SKIN: No rashes. Results CBC & Chem 7: 08/04/17 20:03 08/04/17 20:03 Labs: Abnormal Lab Results - Last 24 Hours (Table) 08/04/17 08/04/17 08/04/17 Range/Units 20:03 20:03 20:03 RBC 3.64 L (3.80-5.40) m/uL Hgb 11.2 L (11.4-16.0) gm/dL Hct 33.2 L (34.0-46.0) % Lymphocytes # 0.8 L (1.0-4.8) k/uL APTT (22.0-30.0) sec BUN 23 H (7-17) mg/dL Glucose 122 H (74-99) mg/dL CK-MB (CK-2) 3.0 H* (0.0-2.4) ng/mL Total Protein 6.0 L (6.3-8.2) g/dL 08/04/17 Range/Units 20:03 RBC (3.80-5.40) m/uL Hgb (11.4-16.0) gm/dL Hct (34.0-46.0) % Lymphocytes # (1.0-4.8) k/uL APTT 21.4 L (22.0-30.0) sec BUN (7-17) mg/dL Glucose (74-99) mg/dL CK-MB (CK-2) (0.0-2.4) ng/mL Total Protein (6.3-8.2) g/dL Thrombosis Risk Factor Assmnt - Choose All That Apply Any of the Below Risk Factors Present?: Yes Other Risk Factors: Yes Each Risk Factor Represents 3 Points: Age 75 years or older Thrombosis Risk Factor Assessment Total Risk Factor Score: 3 Thrombosis Risk Factor Assessment Level: Moderate Risk Assessment and Plan Plan: -Hypoxemia: Secondary to mechanical problem with oxygen tubing . Patient is not in COPD exacerbation -chronic hypercapnic respiratory failure secondary to COPD without any acute exacerbation at this time -Hypertension: Patient will continue her home medications. Patient is clinically doing well will not need to stay in here and our will not require any systemic steroids at this point of time lungs are clear to auscultation will be discharged today
== END 2017-08-05 13:35 | disposition home or self-care (01) ==
LOC: EC 19:48 → 5MS5E 21:04
PROVIDERS: ADMIT Hospitalist; ATTEND Hospitalist
DX: J96.12 Chronic respiratory failure with hypercapnia (principal); Z99.81 Dependence on supplemental oxygen; J44.9 Chronic obstructive pulmonary disease, unspecified; I10 Essential (primary) hypertension; Z79.51 Long term (current) use of inhaled steroids; Z79.899 Other long term (current) drug therapy; Z79.52 Long term (current) use of systemic steroids; Z88.5 Allergy status to narcotic agent; Z88.8 Allergy status to other drugs, medicaments and biological substances; Z87.891 Personal history of nicotine dependence; Z82.49 Family history of ischemic heart disease and other diseases of the circulatory system; Z82.3 Family history of stroke
CPT/HCPCS: 99285 ×2; 96374 ×2; 96375 ×2; 96376 ×2; 96372; 36415; 94640 ×4; 94760; 93005; 83880; 80053; 82550; 82553; 83735; 84484; 85025; 85610; 85730; 71046; G0378 ×2; J0360; J2930 ×2; J1650

== ENCOUNTER → 2017-09-07 | Outpatient (CLI) | payer MEDICARE, BC ==
--- NOTE | 2017-09-09 09:18 | PE ---
EXAMINATION TYPE: PET CT fusion whole body DATE OF EXAM: 09/07/2017 COMPARISON: NONE HISTORY: Melanoma initial diagnosis right big toe on surgery 2-3 weeks ago. TECHNIQUE: Following the intravenous administration of 14.54 mCi of F-18 FDG, whole body images are performed from the top of skull to bottom of feet. Images are reviewed on the computer in the yip l, axial, and sagittal planes. Reconstructed rotating images are created on independent workstation and reviewed on the computer. A noncontrast CT is performed in conjunction with the PET scan. SCAN: Initial Scan FINDINGS: HEAD AND NECK: No suspicious hypermetabolic uptake is seen. Increased uptake left SCM is presumed in flammatory. CHEST, MEDIASTINUM, AND HILAR REGION: No suspicious hypermetabolic uptake is seen. ABDOMEN AND PELVIS: No suspicious hypermetabolic uptake is present. OSSEOUS STRUCTURES: Mild hypermetabolic uptake right acromion correlates with area of sclerosis, max SUV is 4.44. Mild hypermetabolic uptake right sacrum correlates with area of subtle sclerosis there a re axial image 200, max SUV is 3.83 EXTREMITIES: Slight hypermetabolic focus dorsal surface distal right toe is presumed product of excis ional biopsy. Max SUV at this level is only 1.08. Mild symmetric uptake throughout bilateral forearms favors postinflammatory. OTHER CT: There is age-related atrophy and chronic small vessel ischemic change seen in the brain par enchyma. There is moderate to severe calcified plaque at bilateral carotid bulbs. Right-sided rotator cuff surgery is noted. There is moderate to severe atherosclerotic change of aorta extending into branch vessels including i n the bilateral lower extremities. IMPRESSION: No convincing evidence of metastatic disease. Nonspecific osseous lesions right sacrum an d right acromion would be atypical distribution of metastatic disease related to myeloma, right acrom ion findings could be product of right shoulder surgery. No suspicious interbody or soft tissue uptak e to suggest metastatic disease.
== END | disposition home or self-care (01) ==
LOC: RADPETMAIN 13:58
PROVIDERS: ATTEND Internal Medicine Hematology & Oncology
DX: C43.71 Malignant melanoma of right lower limb, including hip (principal)
CPT/HCPCS: 78816; A9552

== ENCOUNTER 2018-08-31 20:46 | Inpatient (IN) | payer BC, MEDICARE ==
[2018-08-31] MEDS ORDERED: IPRATROPIUM-ALBUTEROL 3 ML NEB INHALATION STA (20:57)
[2018-08-31] MEDS ORDERED: ASPIRIN 81 MG PO STA (20:57)
--- NOTE | 2018-08-31 21:03 | ED ---
General Adult HPI - General Chief complaint: Shortness of Breath Stated complaint: Difficulty Breathing Time Seen by Provider: 08/31/18 20:52 Source: patient, EMS Mode of arrival: EMS Limitations: no limitations - History of Present Illness Initial comments: Patient is a 77-year-old female presents with a chief complaint of shortness of breath. Patient states that this came on gradually starting today. She has a history of COPD, is a former smoker. She denies any pain but states it is difficult for her to breathe. She cannot identify an inciting incident. There are no aggravating or alleviating factors. Timing is constant. Patient states that she normally wears 2 L of oxygen at home, and she had to increase this to 4. In route to the hospital, she was given 125 mg Solu-Medrol, and 1 albuterol treatment by EMS. - Related Data Home Medications Medication Instructions Recorded Confirmed Albuterol Sulfate [Proair Hfa] 2 puff INHALATION RT-Q4H PRN 01/14/16 08/31/18 Albuterol Nebulized [Ventolin 2.5 mg INHALATION RT-BID PRN 08/05/17 08/31/18 Nebulized] Budesonide/Formoterol Fumarate 2 puff INHALATION RT-BID 08/05/17 08/31/18 [Symbicort 160-4.5 Mcg Inhaler] predniSONE 5 mg PO DAILY 08/05/17 08/31/18 Formoterol Fumarate [Perforomist] 20 mcg INHALATION RT-BID PRN 08/31/18 08/31/18 Levothyroxine Sodium [Synthroid] 25 mcg PO DAILY 08/31/18 08/31/18 Losartan-Hctz 50-12.5 mg [Hyzaar 1 tab PO DAILY 08/31/18 08/31/18 50-12.5] Rosuvastatin [Crestor] 10 mg PO HS 08/31/18 08/31/18 Allergies Allergy/AdvReac Type Severity Reaction Status Date / Time codeine AdvReac Nausea Verified 08/31/18 22:16 formoterol [From Perforomist] AdvReac Rapid Verified 08/31/18 22:16 Heart Rate Review of Systems ROS Statement: Those systems with pertinent positive or pertinent negative responses have been documented in the HPI. ROS Other: All systems not noted in ROS Statement are negative. Respiratory: Reports: dyspnea Past Medical History Past Medical History: Asthma, COPD, Hypertension Additional Past Medical History / Comment(s): BRONCHITIS, HOME O2 3 LITERS N/C, PNE VACCINE AFTER AGE 65-NOT SURE OF DATE. History of Any Multi-Drug Resistant Organisms: None Reported Past Surgical History: Orthopedic Surgery Additional Past Surgical History / Comment(s): RT ROTATOR CUFF Past Anesthesia/Blood Transfusion Reactions: No Reported Reaction Past Psychological History: No Psychological Hx Reported Smoking Status: Former smoker Past Alcohol Use History: None Reported Past Drug Use History: None Reported - Past Family History Mother Family Medical History: CVA/TIA Additional Family Medical History / Comment(s): AT AGE 88 Father Family Medical History: Myocardial Infarction (AL) Additional Family Medical History / Comment(s): OF AL AT AGE 52 General Exam Limitations: no limitations General appearance: alert, in distress (2/2 SOB ) Head exam: Present: atraumatic, normocephalic Eye exam: Present: normal appearance ENT exam: Present: normal exam Neck exam: Present: normal inspection Respiratory exam: Present: respiratory distress, decreased breath sounds. Absent: wheezes Cardiovascular Exam: Present: normal rhythm, tachycardia GI/Abdominal exam: Present: soft. Absent: distended, tenderness Rectal exam: Present: deferred Extremities exam: Present: normal inspection Back exam: Present: normal inspection Neurological exam: Present: alert, oriented X3 Psychiatric exam: Present: normal affect, normal mood Skin exam: Present: warm, dry, intact Course Vital Signs 08/31/18 08/31/18 08/31/18 20:48 21:05 21:29 Temperature 99.1 F Pulse Rate 134 H 148 H Pulse Rate [ Pulse Oximetery ] Respiratory 30 H 34 H 24 Rate Blood Pressure 141/113 Blood Pressure [Right Arm] O2 Sat by Pulse 89 L Oximetry 08/31/18 08/31/18 09/01/18 21:48 23:16 00:11 Temperature 98 F Pulse Rate 152 H 67 Pulse Rate [ 66 Pulse Oximetery ] Respiratory 22 18 18 Rate Blood Pressure 103/68 Blood Pressure 152/93 [Right Arm] O2 Sat by Pulse 98 96 Oximetry Medical Decision Making - Medical Decision Making Patient presents with a chief complaint of shortness of breath. On initial evaluation, vital signs show hypoxia, tachypnea, tachycardia. EKG performed at 2052 shows sinus tachycardia with a rate of 136 bpm, segmenter of otherwise within normal limits, no acute signs of ischemia. Patient received Solu-Medrol, and 1 albuterol treatment in route to the hospital by EMS. Patient given 3 DuoNeb treatments, aspirin. She will be evaluated with basic labs including cardiac enzymes, venous blood gas, chest x-ray. 9:40 PM ABG shows a respiratory acidosis with a pCO2 of 77. Her breathing treatments, patient says that she feels tired and is still using accessory muscles to breathe. Patient placed on BiPAP. 10:32 PM Lab evaluation of this patient also remarkable for potassium 5.3, were otherwise unremarkable. Case discussed with Dr. Benitez who is aware of the patient. Patient will be placed on cardiac floor. We'll repeat troponin and venous blood gas to assess need for further intervention. 11:28 PM On several re-evaluations, the patient made consistent improvement. repeat troponin and VBG drawn, will follow in the ED. patient asking to take a break from the bipap - if VBG shows adequate improvement, will allow the patient to have some time on NC. 12:46 AM repeat VBG shows improvement, patient stable for transfer to the floor. - Lab Data Result diagrams: 08/31/18 20:55 08/31/18 20:55 Lab Results 08/31/18 08/31/18 08/31/18 Range/Units 20:55 20:55 20:55 WBC 7.3 (3.8-10.6) k/uL RBC 3.62 L (3.80-5.40) m/uL Hgb 11.4 (11.4-16.0) gm/dL Hct 33.8 L (34.0-46.0) % MCV 93.5 (80.0-100.0) fL MCH 31.5 (25.0-35.0) pg MCHC 33.7 (31.0-37.0) g/dL RDW 13.9 (11.5-15.5) % Plt Count 413 (150-450) k/uL Neutrophils % 58 % Lymphocytes % 29 % Monocytes % 8 % Eosinophils % 2 % Basophils % 0 % Neutrophils # 4.2 (1.3-7.7) k/uL Lymphocytes # 2.1 (1.0-4.8) k/uL Monocytes # 0.6 (0-1.0) k/uL Eosinophils # 0.2 (0-0.7) k/uL Basophils # 0.0 (0-0.2) k/uL PT (9.0-12.0) sec INR (<1.2) VBG pH (7.31-7.41) VBG pCO2 (37-51) mmHg VBG HCO3 (24-28) mmol/L Sodium 141 (137-145) mmol/L Potassium 5.3 H (3.5-5.1) mmol/L Chloride 103 (98-107) mmol/L Carbon Dioxide 28 (22-30) mmol/L Anion Gap 10 mmol/L BUN 32 H (7-17) mg/dL Creatinine 0.78 (0.52-1.04) mg/dL Est GFR (CKD-EPI)AfAm 86 (>60 ml/min/1.73 sqM) Est GFR (CKD-EPI)NonAf 74 (>60 ml/min/1.73 sqM) Glucose 152 H (74-99) mg/dL Calcium 9.7 (8.4-10.2) mg/dL Troponin I (0.000-0.034) ng/mL NT-Pro-B Natriuret Pep 125 pg/mL 08/31/18 08/31/18 08/31/18 Range/Units 20:55 20:55 20:55 WBC (3.8-10.6) k/uL RBC (3.80-5.40) m/uL Hgb (11.4-16.0) gm/dL Hct (34.0-46.0) % MCV (80.0-100.0) fL MCH (25.0-35.0) pg MCHC (31.0-37.0) g/dL RDW (11.5-15.5) % Plt Count (150-450) k/uL Neutrophils % % Lymphocytes % % Monocytes % % Eosinophils % % Basophils % % Neutrophils # (1.3-7.7) k/uL Lymphocytes # (1.0-4.8) k/uL Monocytes # (0-1.0) k/uL Eosinophils # (0-0.7) k/uL Basophils # (0-0.2) k/uL PT 9.4 (9.0-12.0) sec INR 0.8 (<1.2) VBG pH 7.23 L (7.31-7.41) VBG pCO2 77 H* (37-51) mmHg VBG HCO3 31 H (24-28) mmol/L Sodium (137-145) mmol/L Potassium (3.5-5.1) mmol/L Chloride (98-107) mmol/L Carbon Dioxide (22-30) mmol/L Anion Gap mmol/L BUN (7-17) mg/dL Creatinine (0.52-1.04) mg/dL Est GFR (CKD-EPI)AfAm (>60 ml/min/1.73 sqM) Est GFR (CKD-EPI)NonAf (>60 ml/min/1.73 sqM) Glucose (74-99) mg/dL Calcium (8.4-10.2) mg/dL Troponin I <0.012 (0.000-0.034) ng/mL NT-Pro-B Natriuret Pep pg/mL Disposition Clinical Impression: Respiratory failure, Respiratory acidosis, COPD exacerbation, Hyperkalemia Disposition: ADMITTED IP TO THIS HOSP Condition: Fair Is patient prescribed a controlled substance at d/c from ED?: No Decision to Admit Reason: Admit from EC - Out of Hospital Transfer - Req. Specs Out of Hospital Transfer - Requested Specifics: Telemetry Unit
[2018-08-31 21:30] LABS: VBG PH 7.23 (7.31-7.41)
[2018-08-31 21:36] LABS: Basophils % (A) 0 %; Eosinophils # (A) 0.2 k/uL (0-0.7); Eosinophils % (A) 2 %; HCT 33.8 % (34.0-46.0); HGB 11.4 gm/dL (11.4-16.0); Lymphocytes # (A) 2.1 k/uL (1.0-4.8); Lymphocytes % (A) 29 %; MCH 31.5 pg (25.0-35.0); MCHC 33.7 g/dL (31.0-37.0); MCV 93.5 fL (80.0-100.0); Mean Platelet Volume 7.2; Monocytes # (A) 0.6 k/uL (0-1.0); Monocytes % (A) 8 %; Neutrophils # (A) 4.2 k/uL (1.3-7.7); Neutrophils % (A) 58 %; Platelet Count 413 k/uL (150-450); RBC 3.62 m/uL (3.80-5.40); RDW 13.9 % (11.5-15.5); WBC 7.3 k/uL (3.8-10.6)
--- NOTE | 2018-08-31 21:46 | XR ---
EXAMINATION TYPE: XR chest 2V DATE OF EXAM: 08/31/2018 COMPARISON: 08/04/2017 HISTORY: Shortness of breath and chest pain TECHNIQUE: Frontal and lateral views of the chest are obtained. FINDINGS: There is pulmonary hyperinflation and flattening of the diaphragms on the lateral view ind icative of underlying COPD. Extensive atherosclerosis of the thoracic aorta is seen. Diffuse osseous demineralization is present. Postsurgical changes of the right shoulder are noted. No focal consolida tion, pleural effusion or pneumothorax. Cardiomediastinal silhouette is within normal limits. IMPRESSION: No acute cardiopulmonary process. Underlying COPD.
[2018-08-31 21:49] LABS: INR 0.8 (<1.2); Prothrombin Time 9.4 sec (9.0-12.0)
[2018-08-31 22:07] LABS: Calcium 9.7 mg/dL (8.4-10.2)
[2018-08-31 22:09] LABS: Potassium 5.3 mmol/L (3.5-5.1)
[2018-08-31] MEDS ORDERED: NALOXONE 0.4 MG/ML 1 ML VIAL IV PRN (22:24)
[2018-09-01 00:08] LABS: VBG PH 7.29 (7.31-7.41)
[2018-09-01 00:16] VITALS: BMI 18.3
[2018-09-01] MEDS: ALBUTEROL NEBULIZED 2.5 MG/3 ML INHALATION SCH ×3 (00:33→20:08)
[2018-09-01] MEDS ORDERED: methylPREDNISolone SOD SUCCI 125 MG/2 ML VIAL IM SCH (02:00)
[2018-09-01] MEDS: methylPREDNISolone SOD SUCCI 125 MG/2 ML VIAL IVP SCH ×2 (02:23→07:59)
[2018-09-01 03:52] LABS: Basophils % (A) 0 %; Eosinophils % (A) 0 %; HCT 30.5 % (34.0-46.0); Lymphocytes # (A) 0.2 k/uL (1.0-4.8); Lymphocytes % (A) 4 %; MCHC 31.5 g/dL (31.0-37.0); Mean Platelet Volume 6.5; Monocytes # (A) 0.1 k/uL (0-1.0); Monocytes % (A) 1 %; Neutrophils # (A) 3.9 k/uL (1.3-7.7); Neutrophils % (A) 94 %; Platelet Count 340 k/uL (150-450); RDW 13.2 % (11.5-15.5); WBC 4.2 k/uL (3.8-10.6)
[2018-09-01 04:16] LABS: HGB 9.6 gm/dL (11.4-16.0)
[2018-09-01 05:25] LABS: Calcium 9.8 mg/dL (8.4-10.2); Potassium 4.7 mmol/L (3.5-5.1)
[2018-09-01 06:22] LABS: Glucose,Whole Blood 182 mg/dL (75-99)
[2018-09-01] MEDS: INSULIN ASPART (NovoLOG) 100 UNIT/ML VIAL SQ SCH ×4 (06:38→21:14)
[2018-09-01] MEDS: BUDESONIDE 1 MG/2 ML NEBU INHALATION SCH ×2 (08:33→19:57)
[2018-09-01] MEDS: LEVOTHYROXINE 25 MCG TAB PO SCH (10:34)
[2018-09-01] MEDS: LOSARTAN-HCTZ 50-12.5 MG 1 EACH TAB PO SCH (10:34)
[2018-09-01] MEDS: IPRATROPIUM-ALBUTEROL 3 ML NEB INHALATION SCH ×4 (11:49→23:27)
[2018-09-01 12:00] LABS: Glucose,Whole Blood 162 mg/dL (75-99)
[2018-09-01] MEDS ORDERED: INSULIN ASPART (NovoLOG) 100 UNIT/ML VIAL SQ SCH (12:30)
[2018-09-01] MEDS ORDERED: RX INFO: IV CONTRAST WAS GIVEN 1 EACH MISC MISCELLANE PRN (13:53)
--- NOTE | 2018-09-01 15:37 | CT ---
EXAMINATION TYPE: CT angio chest DATE OF EXAM: 09/01/2018 3:10 PM COMPARISON: 01/06/2017, PET/CT 09/07/2017 HISTORY: Pulmonary embolus CT DLP: 172.1 mGycm Automated exposure control for dose reduction was used. CONTRAST: CTA scan of the thorax is performed with IV Contrast, patient injected with 100 mL of Isovue 370, pul monary embolism protocol. . FINDINGS: LUNGS: Moderate diffuse emphysematous changes. Calcified granuloma left upper lobe. No evidence of pn eumothorax, pleural effusion or focal. Stable 6 mm nodule within the right lower lobe. MEDIASTINUM: There is satisfactory enhancement of the pulmonary artery and its branches, there is no CT evidence for pulmonary embolism. There are no greater than 1 cm hilar or mediastinal lymph nodes. Atherosclerotic change of the aorta. Coronary artery calcification noted. OTHER: Scoliotic curvature with multilevel degenerative disc disease. Sclerotic changes involving th e sternum are suspicious for metastatic disease. IMPRESSION: 1. No CT evidence of pulmonary embolism 2. Stable right lower lobe pulmonary nodule. 3. Sclerotic changes involving the sternum are suspicious for metastasis
[2018-09-01] MEDS: ENOXAPARIN 40 MG/0.4 ML SYRINGE SQ SCH (15:50)
[2018-09-01] MEDS: methylPREDNISolone SOD SUCCI 40 MG/ML 1 ML VIAL IV SCH ×2 (15:50→22:49)
[2018-09-01 17:02] LABS: Glucose,Whole Blood 154 mg/dL (75-99)
--- NOTE | 2018-09-01 17:43 | HP ---
HISTORY AND PHYSICAL DATE OF ADMISSION: August 31, 2018. DATE OF SERVICE: September 01, 2018. PRESENTING COMPLAINT: Short of breath. HISTORY OF PRESENTING COMPLAINT: This is a very pleasant 77-year-old patient of Visiting Physician, Dr. Mckee. The patient's chronic stable medical conditions include hypertension, home oxygen 3 L, hyperlipidemia, hypothyroid, hypercholesteremia. Patient presents with worsening short of breath a few days. No cough. Some wheezing. No edema. Appetite is not the best. Weak and tired. The patient very easily gets short winded. The patient has got a walker with a seat and can only do short distances. No fever or chills. Being admitted for the same. REVIEW OF SYSTEMS: CONSTITUTIONAL: Tired. HEENT: None. RESPIRATORY: As above. CARDIOVASCULAR: None. GASTROINTESTINAL: None. GENITOURINARY: None. MUSCULOSKELETAL none. DERMATOLOGICAL, HEMATOLOGIC, LYMPHATICS: None. PSYCHIATRY: Some anxiety. NEUROLOGICAL none. PAST MEDICAL HISTORY: COPD, hypertension, hyperlipidemia, hypothyroid. PAST SURGICAL HISTORY: Right rotator cuff surgery. SOCIAL HISTORY: . No alcohol. Smoked for 55 years, stopped 4 years ago. No alcohol. FAMILY HISTORY: Of stroke. HOME MEDICATIONS: 1. Prednisone 5 mg a day. 2. Crestor 10 mg q.h.s. 3. Hyzaar 50/12.5 one tab p.o. daily. 4. Synthroid 25 mcg a day. 5. Perforomist 20 mcg b.i.d. p.r.n. 6. Symbicort 160/4.5, 2 puffs b.i.d. 7. ProAir 2 puffs q.4 p.r.n. 8. Ventolin 2.5 nebulizer b.i.d. p.r.n. ALLERGIES: CODEINE AND PERFOROMIST. PHYSICAL EXAMINATION: VITAL SIGNS: Vital signs on presentation: Temperature 99.1, pulse 134, respiration 30, blood pressure 140/113, pulse ox 89 percent on room air. GENERAL APPEARANCE: Thin built, lying in bed. BMI 18.3. EYES: Pupils equal. Conjunctivae normal. HEENT: External appearance of nose and ears normal. Oral cavity normal. NECK: JVD not raised. Mass not palpable. RESPIRATORY: Effort increased. LUNGS: Diminished breath sounds. Prolonged expiration. Not able to speak in full sentences. CARDIOVASCULAR: 1st and 2nd sounds normal. No edema. ABDOMEN: Soft, nontender. Liver and spleen not palpable. LYMPHATICS: No lymph nodes palpable in the neck and axilla. PSYCHIATRY: Alert and oriented times three. Mood and affect slightly anxious- appearing. NEUROLOGICAL: Pupils equal. Cranial nerves grossly intact. Power and sensation grossly intact. MUSCULOSKELETAL: Some wasting of muscle and loss of body fat. INVESTIGATIONS: White count 4.2, hemoglobin 9.6, potassium 4.7, BUN 37, creatinine 0.95. Troponin negative. EKG tracing personally reviewed by me shows poor baseline with sinus tachycardia. Chest x-ray film personally reviewed by me shows hyperinflation. ASSESSMENT: 1. Acute severe chronic obstructive pulmonary disease exacerbation in an ex-smoker. 2. Acute hypoxic respiratory failure present on admission. Patient requiring BiPAP. 3. Chronic hypoxic respiratory failure underlying chronic obstructive pulmonary disease. 4. Rule out pulmonary embolism. 5. Hyperlipidemia. 6. Essential hypertension. 7. Hypothyroidism, rule out over replacement. 8. Acute respiratory acidosis from hypercapnia that is type 2 respiratory failure. PLAN: Patient is started on bronchodilators, IV steroids, inhaled steroids. We will check patient's TSH in the morning. Given her lack of muscle weakness, we will DC patient's Crestor, we will use inspiratory spirometer. Pulmonary was consulted. Care was discussed at length with the patient and daughter at the bedside. We will check the patient's also albumin. Copy to . Visiting Physician, Dr. Mckee. MMJANEL / DOUGLAS: [id number] /
--- NOTE | 2018-09-01 18:34 | CONS ---
CONSULTATION PULMONARY CRITICAL CARE CONSULTATION: DATE OF CONSULTATION: 09/01/2018 Very pleasant 77-year-old female who presented to the emergency department yesterday on August 31 with shortness of breath. She states that it started a day or so prior to admission and just got progressively worse. She has a history of quite severe COPD and is a former smoker. She denies any chest pain or chest discomfort. She denies any cough, wheezing, or phlegm production. No fever or chills. Today, she is resting comfortably in bed. Her daughter who is a dairy feed mixing operator here is in the room with us. She is feeling much better. Not quite back to baseline but much better, probably 85% improved. She did receive some breathing treatments and some Solu-Medrol from the EMS individuals. Currently, her home medications include albuterol in the form of ProAir HFA, updrafts with albuterol, Symbicort which she uses infrequently, prednisone 5 mg a day, Synthroid, losartan HCTZ, and Crestor. ALLERGIES: Are CODEINE and PERFOROMIST. MEDICAL HISTORY: COPD primarily and hypertension. She also has a history of hyperlipidemia and hypothyroidism. I believe she sees Dr. Mckee who is one of the Visiting Physicians. SURGICAL HISTORY: Includes a right rotator cuff surgery. SOCIAL HISTORY: Positive for previous tobacco use. She smoked probably for 55 years or more. She denies any alcohol use or illicit drug use. FAMILY HISTORY: Positive for TIA/CVA. Also, family history of myocardial infarction. REVIEW OF SYSTEMS: CONSTITUTIONAL: Weakness. NEUROLOGIC: Negative. HEENT: Negative. CARDIOVASCULAR: Negative. PULMONARY: Shortness of breath. GI: Negative. : Negative. RHEUMATOLOGIC: Negative. IMMUNOLOGIC: Negative. ENDOCRINOLOGIC: Negative. DERMATOLOGIC negative. PHYSICAL EXAMINATION: Current vital signs are reviewed. Temperature is 97.6, heart rate 100, respiratory rate 18, blood pressure 147/93, mean 111, 3 L saturation 97%. Appears in no acute distress. HEENT examination is grossly unremarkable. Nasal O2 in place. NECK: Supple. Full range of motion. No adenopathy or thyromegaly. Neck veins are flat. CARDIOVASCULAR examination reveals regular rhythm rate. Heart rate right around 100. It is regular. LUNGS: Reveal severely diminished breath sounds. A few scattered rhonchi and wheezes. There is prolongation. No crackles. ABDOMEN: Soft. Bowel sounds are heard. EXTREMITIES: Intact. No cyanosis, clubbing, or edema. SKIN: Without rash. NEUROLOGIC examination is brief but nonfocal. LABS: Reviewed. White count 4.2, hemoglobin 9.6, hematocrit 30.5, platelet count normal. Sodium, potassium, chloride, CO2 all normal. Anion gap is 8. BUN 37, creatinine 0.95. Troponins were negative x3. Chest x-ray does show changes of COPD. Her medications are reviewed. She is on Pulmicort, DuoNebs and Solu-Medrol. ASSESSMENT: 1. Chronic obstructive pulmonary disease exacerbation, much improved. 2. History of severe chronic obstructive pulmonary disease from previous heavy tobacco use. 3. Hypertension. 4. Hyperlipidemia. 5. Hypothyroidism. 6. Chronic hypoxemic respiratory failure. PLAN: The patient is doing well. Hopeful discharge in the morning. No additional recommendations are made. We will continue to follow. Medications appear to be appropriate. She does not need antibiotics at this time. MMODL / IJN: [id number] /
[2018-09-01] MEDS ORDERED: ATORVASTATIN 20 MG TAB PO SCH (21:00)
[2018-09-01 21:09] LABS: Glucose,Whole Blood 139 mg/dL (75-99)
[2018-09-02] MEDS: IPRATROPIUM-ALBUTEROL 3 ML NEB INHALATION SCH ×5 (03:04→20:26)
[2018-09-02] MEDS: LEVOTHYROXINE 25 MCG TAB PO SCH (06:36)
[2018-09-02] MEDS: INSULIN ASPART (NovoLOG) 100 UNIT/ML VIAL SQ SCH ×4 (06:37→20:57)
[2018-09-02 06:38] LABS: Glucose,Whole Blood 150 mg/dL (75-99)
[2018-09-02] MEDS: ENOXAPARIN 40 MG/0.4 ML SYRINGE SQ SCH (08:18)
[2018-09-02] MEDS: LOSARTAN-HCTZ 50-12.5 MG 1 EACH TAB PO SCH (08:18)
[2018-09-02] MEDS: methylPREDNISolone SOD SUCCI 40 MG/ML 1 ML VIAL IV SCH ×2 (08:18→16:44)
[2018-09-02] MEDS: BUDESONIDE 1 MG/2 ML NEBU INHALATION SCH ×2 (08:39→20:26)
--- NOTE | 2018-09-02 11:18 | P.PN ---
Subjective Progress Note Date: 09/02/18 Principal diagnosis: Acute exacerbation of chronic obstructive pulmonary disease On 09/02/2018 patient seen in follow-up on selective care unit, she is resting comfortably in bed, she states her breathing is much improved, no shortness of breath, no significant wheezing, vital signs are stable, she remains on 3 L of oxygen, with a pulse ox of 95%, afebrile, hemodynamically stable, lung sounds reveal diminished breath sounds, with minimal wheezing. Objective - Vital Signs Vital signs: Vital Signs Temp 97.6 F 09/02/18 08:00 Pulse 96 09/02/18 08:54 Resp 18 09/02/18 08:00 BP 118/71 09/02/18 08:00 Pulse Ox 95 09/02/18 08:00 Intake & Output 09/01/18 09/02/18 09/02/18 18:59 06:59 18:59 Intake Total 580 240 100 Balance 580 240 100 Weight 45.359 kg 46.9 kg Intake: Oral 580 240 100 Other: # Voids 1 1 - Exam GENERAL EXAM: Alert, pleasant 77-year-old white female on3 liters of oxygen comfortable in no apparent distress. HEAD: Normocephalic/atraumatic. EYES: Normal reaction of pupils, equal size. Conjunctiva pink, sclera white. NOSE: Clear with pink turbinates. THROAT: No erythema or exudates. NECK: No masses, no JVD, no thyroid enlargement, no adenopathy. CHEST: No chest wall deformity. Symmetrical expansion. LUNGS: Equal air entry with diminished breath sounds, with a few scattered wheezes CVS: Regular rate and rhythm, normal S1 and S2, no gallops, no murmurs, no rubs ABDOMEN: Soft, nontender. No hepatosplenomegaly, normal bowel sounds, no guarding or rigidity. EXTREMITIES: No clubbing, no edema, no cyanosis, 2+ pulses and upper and lower extremities. MUSCULOSKELETAL: Muscle strength and tone normal. SPINE: No scoliosis or deformity SKIN: No rashes CENTRAL NERVOUS SYSTEM: Alert and oriented -3. No focal deficits, tone is normal in all 4 extremities. PSYCHIATRIC: Alert and oriented -3. Appropriate affect. Intact judgment and insight. - Labs CBC & Chem 7: 09/01/18 03:20 09/01/18 03:20 Labs: Abnormal Lab Results - Last 24 Hours (Table) 09/01/18 09/01/18 09/01/18 Range/Units 11:59 17:00 21:08 POC Glucose (mg/dL) 162 H 154 H 139 H (75-99) mg/dL 09/02/18 Range/Units 06:36 POC Glucose (mg/dL) 150 H (75-99) mg/dL Assessment and Plan Plan: Assessment: #1. Chronic obstructive pulmonary disease exacerbation, improving #2. History of severe COPD from previous heavy tobacco use #3. Hypertension #4. Hyperlipidemia #5. Hypothyroidism #6. Chronic hypoxemic respiratory failure secondary to severe COPD Plan: Patient is doing much better, and any wheezing on today's exam, improving dyspnea. Stable for discharge home today on prednisone taper, she can finish outpatient course of oral antibiotics, patient was told to continue her Symbicort, and nebulized treatments, follow-up with Dr. Kearns in the office in 7-10 days I performed a history & physical examination of the patient and discussed their management with my nurse practitioner, Savanna Serrano. I reviewed the nurse practitioner's note and agree with the documented findings and plan of care. Lung sounds are positive for diminished breath sounds with minimal wheezing. The findings and the impression was discussed with the patient. I attest to the documentation by the nurse practitioner. Time with Patient: Less than 30
[2018-09-02 11:44] LABS: Glucose,Whole Blood 154 mg/dL (75-99)
[2018-09-02 16:42] LABS: Glucose,Whole Blood 192 mg/dL (75-99)
[2018-09-02 20:49] LABS: Glucose,Whole Blood 138 mg/dL (75-99)
--- NOTE | 2018-09-02 22:41 | PN ---
PROGRESS NOTE DATE OF SERVICE: 09/02/2018. PRESENTING COMPLAINT: Short of breath. INTERVAL HISTORY: This patient presented with COPD exacerbation and acute hypoxia. Overall, he is of small frame. I did stop her Crestor. . Eating some. Feels weak and tired. at the bedside. REVIEW OF SYSTEMS: Done for constitutional, cardiovascular, GI, pulmonary; relevant findings as above. CURRENT MEDICATIONS: Reviewed that include Solu-Medrol, DuoNeb. PHYSICAL EXAMINATION: Temperature 96.5, pulse 109, respiratory rate 18, blood pressure 120/66, pulse ox 97% on 3 L. GENERAL APPEARANCE: Lying in bed, tired-appearing. EYES: Pupils are equal. Conjunctivae normal. NECK: JVD not raised. Mass not palpable. Respiratory effort increased. LUNGS: Diminished breath sounds. Prolonged expiration. CARDIOVASCULAR: 1st and 2nd sounds normal. No edema. ABDOMEN: Soft, nontender. Liver and spleen not palpable. PSYCHIATRY: Answering questions. MUSCULOSKELETAL: Diffuse wasting of muscles. INVESTIGATIONS: Accu-Cheks are noted. TSH 0.615. ASSESSMENT: 1. Acute severe chronic obstructive pulmonary disease exacerbation in an ex-smoker. 2. Acute hypoxic respiratory failure, present on admission, requiring BiPAP. 3. Chronic hypoxic respiratory failure from underlying chronic obstructive pulmonary disease. 4. Hyperlipidemia. 5. Essential hypertension. 6. Hyperthyroidism from over replacement. Will DC the Synthroid. 7. Acute respiratory failure from hypercapnia that is type 2. PLAN: We will stop patient's Synthroid. I did talk to the patient and . Cut back on the Solu-Medrol. ADVANCED CARE PLANNING: This was discussed at length with the patient. Overall prognosis is guarded given advanced functional state. He has agreed to acceptable to make the patient do not resuscitate. Pros and cons were discussed. A total of about 25 minutes additionally was spent for this aspect of the case. Looking at possibly patient going back tomorrow. MMODL / IJN: [id number] /
[2018-09-03] MEDS: IPRATROPIUM-ALBUTEROL 3 ML NEB INHALATION SCH ×4 (00:32→10:45)
[2018-09-03 06:06] LABS: Glucose,Whole Blood 137 mg/dL (75-99)
[2018-09-03] MEDS: INSULIN ASPART (NovoLOG) 100 UNIT/ML VIAL SQ SCH ×2 (06:33→11:46)
[2018-09-03] MEDS: BUDESONIDE 1 MG/2 ML NEBU INHALATION SCH (07:37)
[2018-09-03] MEDS ORDERED: predniSONE 20 MG TAB PO SCH (09:00)
[2018-09-03 10:11] VITALS: TEMP 98.4
[2018-09-03] MEDS: ENOXAPARIN 40 MG/0.4 ML SYRINGE SQ SCH (10:12)
[2018-09-03] MEDS: LOSARTAN-HCTZ 50-12.5 MG 1 EACH TAB PO SCH (10:13)
--- NOTE | 2018-09-03 10:41 | P.PN ---
Subjective Progress Note Date: 09/03/18 Principal diagnosis: Acute exacerbation of chronic obstructive pulmonary disease Patient seen today 09/03/2018 in follow-up on the selective care unit. She is currently sitting up in a chair at the bedside. Awake and alert in no acute distress. Her breathing is back to her baseline. No worsening shortness of breath, cough or congestion. Maintaining O2 saturations in the upper 90s on 3 L/m per nasal cannula. She's afebrile. Hemodynamically stable. Remains on DuoNeb inhalations and oral prednisone. Objective - Vital Signs Vital signs: Vital Signs Temp 98.4 F 09/03/18 08:45 Pulse 94 09/03/18 08:45 Resp 16 09/03/18 08:45 BP 128/54 09/03/18 08:45 Pulse Ox 97 09/03/18 08:45 Intake & Output 09/02/18 09/03/18 09/03/18 18:59 06:59 18:59 Intake Total 520 118 Balance 520 118 Weight 47.4 kg Intake: Oral 520 118 Other: Voiding Method Toilet # Voids 2 1 - Exam GENERAL EXAM: Alert, pleasant 77-year-old female on 3 liters of oxygen comfortable in no apparent distress. HEAD: Normocephalic/atraumatic. EYES: Normal reaction of pupils, equal size. Conjunctiva pink, sclera white. NOSE: Clear with pink turbinates. THROAT: No erythema or exudates. NECK: No masses, no JVD, no thyroid enlargement, no adenopathy. CHEST: No chest wall deformity. Symmetrical expansion. LUNGS: Equal air entry with diminished breath sounds, with a few scattered wheezes CVS: Regular rate and rhythm, normal S1 and S2, no gallops, no murmurs, no rubs ABDOMEN: Soft, nontender. No hepatosplenomegaly, normal bowel sounds, no guarding or rigidity. EXTREMITIES: No clubbing, no edema, no cyanosis, 2+ pulses and upper and lower extremities. MUSCULOSKELETAL: Muscle strength and tone normal. SPINE: No scoliosis or deformity SKIN: No rashes CENTRAL NERVOUS SYSTEM: No focal deficits, tone is normal in all 4 extremities. PSYCHIATRIC: Alert and oriented -3. Appropriate affect. Intact judgment and insight. - Labs CBC & Chem 7: 09/01/18 03:20 09/01/18 03:20 Labs: Abnormal Lab Results - Last 24 Hours (Table) 09/02/18 09/02/18 09/02/18 Range/Units 11:41 16:40 20:44 POC Glucose (mg/dL) 154 H 192 H 138 H (75-99) mg/dL 09/03/18 Range/Units 06:00 POC Glucose (mg/dL) 137 H (75-99) mg/dL Assessment and Plan Assessment: Assessment: #1. Chronic obstructive pulmonary disease exacerbation, improving #2. History of severe COPD from previous heavy tobacco use #3. Hypertension #4. Hyperlipidemia #5. Hypothyroidism #6. Chronic hypoxemic respiratory failure secondary to severe COPD Plan: The patient was seen and evaluated by Dr. Diop. She is cleared for discharge from the pulmonary standpoint. Complete prednisone taper. She'll follow-up in our office in 1-2 weeks' time. She is encouraged to call sooner with any recurrence of symptoms or any other questions or concerns. I, the cosigning physician, performed a history & physical examination of the patient. Lungs sounds with faint end expiratory wheeze, diminished. Maintaining good O2 saturations in the 90s on 3 L/m per nasal cannula. I discussed the assessment and plan of care with my nurse practitioner, Sondra Matute. I attest to the above note as dictated by her.
[2018-09-03 11:59] LABS: Glucose,Whole Blood 109 mg/dL (75-99)
[2018-09-03 12:48] VITALS: BP 147/58; PULSE 93; RESP 18
--- NOTE | 2018-09-04 11:08 | DS ---
DISCHARGE SUMMARY DATE OF ADMISSION: 08/31/2018 DATE OF DISCHARGE: 09/03/2018 FINAL DIAGNOSES: 1. Acute severe chronic obstructive pulmonary disease exacerbation in an ex-smoker. 2. Acute hypoxic respiratory failure, present on admission, requiring BiPAP. 3. Chronic hypoxic respiratory failure from underlying chronic obstructive pulmonary disease. 4. Hyperlipidemia. 5. Essential hypertension. 6. Hyperthyroidism from over replacement, discontinued Synthroid. 7. Acute respiratory failure with hypoxia and hypercapnia secondary to underlying chronic obstructive pulmonary disease. 8. 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 This patient has got advanced COPD, presented weak, tired, run down, and acute hypoxic respiratory failure, COPD exacerbation, responded well to steroids and bronchodilators. I did have a lengthy talk with the patient's . The patient's TSH was low normal, hence patient's Synthroid has been discontinued. It can be rechecked in about 3 to 4 weeks. Also patient's Crestor is being discontinued as muscles are already significantly weak. I do expect some improvement in the patient. Patient's code status has been changed to DNR. Overall prognosis is guarded. I had a lengthy talk with the patient and family at the bedside. Discussion and discharge planning more than 35 minutes. On examination, afebrile, pulse 93, respiratory 18, blood pressure 147/58 pulse ox 100% on 3 L. LUNGS: Decreased breath sounds. INVESTIGATIONS: Accu-Cheks are noted. CONSULTATION: Dr. Diop from Pulmonary. DISCONTINUED MEDICATIONS: Discontinue medications include include Crestor and Synthroid. MEDICATIONS FOR HOME: 1. ProAir 2 puffs q.4 p.r.n. 2. Ventolin 2.5 nebulizer b.i.d. p.r.n. 3. Symbicort 160/4.5 two puffs b.i.d. 4. Prednisone 5 mg daily. 5. Perforomist 20 mcg b.i.d. 6. Hyzaar 50/12.5 one tab p.o. daily. 7. DuoNeb q.i.d. 8. Home oxygen to continue. Follow up with Dr. Benitez in one week. Follow up with Dr. Mckee on 09/05/2018. Discussion and discharge planning more than 35 minutes. CODE STATUS: DO NOT RESUSCITATE. MMODL / IJN: [id number] /
== END 2018-09-03 13:05 | disposition home or self-care (01) | DRG 190 ==
LOC: EC 20:46 → 3SCARD 22:24
PROVIDERS: ADMIT Hospitalist; ATTEND Hospitalist
PROC: 5A09357 Assistance with Respiratory Ventilation, Less than 24 Consecutive Hours, Continuous Positive Airway Pressure (ICD-10-PCS; principal; 2018-08-31)
DX: J44.1 Chronic obstructive pulmonary disease with (acute) exacerbation (principal); J96.21 Acute and chronic respiratory failure with hypoxia; J96.22 Acute and chronic respiratory failure with hypercapnia; E87.2 Acidosis; E87.5 Hyperkalemia; E05.80 Other thyrotoxicosis without thyrotoxic crisis or storm; E03.9 Hypothyroidism, unspecified; T38.1X5A Adverse effect of thyroid hormones and substitutes, initial encounter; E78.00 Pure hypercholesterolemia, unspecified; E78.5 Hyperlipidemia, unspecified; I10 Essential (primary) hypertension; G72.9 Myopathy, unspecified; Z66 Do not resuscitate; Z87.891 Personal history of nicotine dependence; Z99.81 Dependence on supplemental oxygen; Z79.51 Long term (current) use of inhaled steroids; Z79.890 Hormone replacement therapy; Z79.52 Long term (current) use of systemic steroids; Z79.899 Other long term (current) drug therapy; Z88.5 Allergy status to narcotic agent; Z88.8 Allergy status to other drugs, medicaments and biological substances; Z82.3 Family history of stroke; Z82.49 Family history of ischemic heart disease and other diseases of the circulatory system
CPT/HCPCS: 36415; 71046; 71275; 80048; 82803; 83880; 84443; 84484; 85025; 85610; 93005; 94640; 94660; 94760; 99285

== ENCOUNTER 2019-02-01 21:02 | Inpatient (IN) | payer MEDICARE ==
[2019-02-01] MEDS ORDERED: IPRATROPIUM-ALBUTEROL 3 ML NEB INHALATION STA (21:19)
[2019-02-01] MEDS ORDERED: predniSONE 20 MG TAB PO STA (21:19)
[2019-02-01] MEDS ORDERED: ALBUTEROL NEBULIZED 2.5 MG/3 ML INHALATION STA (21:19)
--- NOTE | 2019-02-01 21:21 | ED ---
SOB HPI - General Chief Complaint: Shortness of Breath Stated Complaint: Diff Breathing Time Seen by Provider: 02/01/19 21:05 Source: EMS Mode of arrival: EMS Limitations: physical limitation (History mildly limited as patient is very dyspneic, able to only give short answers.) - History of Present Illness MD Complaint: shortness of breath -: days(s) Consistency: constant Improves With: nothing Worsens With: nothing Known History Of: COPD Associated Symptoms: cough Treatments Prior to Arrival: oxygen, bronchodilator - Related Data Home Oxygen Therapy: No Home Oxygen Amount: 2 Liters Home Medications Medication Instructions Recorded Confirmed Albuterol Sulfate [Proair Hfa] 2 puff INHALATION RT-Q4H PRN 01/14/16 02/01/19 Budesonide/Formoterol Fumarate 2 puff INHALATION RT-BID 08/05/17 02/01/19 [Symbicort 160-4.5 Mcg Inhaler] predniSONE 5 mg PO DAILY 08/05/17 02/01/19 Losartan-Hctz 50-12.5 mg [Hyzaar 1 tab PO DAILY 08/31/18 02/01/19 50-12.5] Ergocalciferol [Vitamin D2] 50,000 unit PO SA 02/01/19 02/01/19 Ferrous Sulfate [Feosol] 325 mg PO DAILY 02/01/19 02/01/19 Ipratropium-Albuterol Nebulize 3 ml INHALATION RT-QID PRN 02/01/19 02/01/19 [Duoneb 0.5 mg-3 mg/3 ml Soln] Levothyroxine Sodium [Synthroid] 25 mcg PO DAILY 02/01/19 02/01/19 Allergies Allergy/AdvReac Type Severity Reaction Status Date / Time codeine AdvReac Nausea Verified 02/01/19 21:33 formoterol [From Perforomist] AdvReac Rapid Verified 02/01/19 21:33 Heart Rate Review of Systems ROS Statement: Those systems with pertinent positive or pertinent negative responses have been documented in the HPI. ROS Other: All systems not noted in ROS Statement are negative. Constitutional: Denies: fever, chills, weakness Respiratory: Reports: cough, dyspnea, wheezes. Denies: hemoptysis Cardiovascular: Denies: chest pain, palpitations, edema, syncope Gastrointestinal: Denies: abdominal pain, vomiting, diarrhea Genitourinary: Denies: dysuria, hematuria Musculoskeletal: Denies: back pain Skin: Denies: rash Neurological: Denies: headache, weakness Past Medical History Past Medical History: Asthma, COPD, Hypertension Additional Past Medical History / Comment(s): BRONCHITIS, HOME O2 3 LITERS N/C, PNE VACCINE AFTER AGE 65-NOT SURE OF DATE. History of Any Multi-Drug Resistant Organisms: None Reported Past Surgical History: Orthopedic Surgery Additional Past Surgical History / Comment(s): RT ROTATOR CUFF Past Anesthesia/Blood Transfusion Reactions: No Reported Reaction Past Psychological History: No Psychological Hx Reported Smoking Status: Former smoker Past Alcohol Use History: None Reported Past Drug Use History: None Reported - Past Family History Mother Family Medical History: CVA/TIA Additional Family Medical History / Comment(s): AT AGE 88 Father Family Medical History: Myocardial Infarction ([place]) Additional Family Medical History / Comment(s): OF [place] AT AGE 52 General Exam Limitations: no limitations General appearance: alert, in distress Head exam: Present: atraumatic, normocephalic Eye exam: Present: normal appearance. Absent: scleral icterus, conjunctival injection Neck exam: Present: normal inspection, full ROM Respiratory exam: Present: respiratory distress, wheezes, accessory muscle use, decreased breath sounds. Absent: rales, rhonchi, stridor Cardiovascular Exam: Present: normal rhythm, tachycardia, normal heart sounds. Absent: systolic murmur, diastolic murmur, rubs, gallop GI/Abdominal exam: Present: soft. Absent: distended, tenderness, guarding, rebound, rigid, mass Extremities exam: Present: normal inspection, normal capillary refill. Absent: pedal edema, calf tenderness Back exam: Present: normal inspection. Absent: CVA tenderness (R), CVA tenderness (L) Neurological exam: Present: alert Skin exam: Present: warm, dry, intact, normal color. Absent: rash Course Vital Signs 02/01/19 02/01/19 02/01/19 21:06 21:32 21:35 Temperature 98.3 F Pulse Rate 119 H 126 H Pulse Rate [ Base Filler Operator ] Respiratory 28 H 28 H 30 H Rate Blood Pressure 146/111 O2 Sat by Pulse 94 L Oximetry 02/01/19 02/01/19 02/01/19 21:38 21:40 21:50 Temperature Pulse Rate 124 H 134 H 134 H Pulse Rate [ Base Filler Operator ] Respiratory 25 H 32 H 30 H Rate Blood Pressure 155/78 155/78 O2 Sat by Pulse 100 97 Oximetry 02/01/19 02/01/19 02/01/19 22:00 22:40 23:50 Temperature Pulse Rate 129 H 116 H 112 H Pulse Rate [ Base Filler Operator ] Respiratory 24 25 H 20 Rate Blood Pressure 155/78 129/60 118/55 O2 Sat by Pulse 98 99 100 Oximetry 02/02/19 02/02/19 02/02/19 00:00 00:10 00:20 Temperature Pulse Rate 106 H 104 H 99 Pulse Rate [ Base Filler Operator ] Respiratory 19 8 L 18 Rate Blood Pressure 118/55 120/60 120/60 O2 Sat by Pulse 98 99 99 Oximetry 02/02/19 02/02/19 02/02/19 00:23 00:30 00:40 Temperature Pulse Rate 98 100 Pulse Rate [ Base Filler Operator ] Respiratory 15 13 Rate Blood Pressure 120/60 120/58 O2 Sat by Pulse 98 99 99 Oximetry 02/02/19 02/02/19 02/02/19 00:50 01:00 01:13 Temperature Pulse Rate 108 H 109 H Pulse Rate [ 107 H Base Filler Operator ] Respiratory 10 L 17 26 H Rate Blood Pressure 120/58 120/58 O2 Sat by Pulse 100 97 Oximetry 02/02/19 02/02/19 02/02/19 01:32 01:40 01:44 Temperature 98.6 F Pulse Rate 109 H 110 H 107 H Pulse Rate [ Base Filler Operator ] Respiratory 34 H Rate Blood Pressure 130/98 O2 Sat by Pulse 99 Oximetry Medical Decision Making - Medical Decision Making Patient is 78-year-old woman with history of COPD, presenting to be valid for respiratory distress developing over number days. Patient initially very dyspneic and placed on BiPAP. She has begun to show improvement, respiratory rate improving, patient feeling much better. Patient be admitted for further steroid treatment, inhaled medication. Patient did have mildly elevated d-dimer but review of her labs shows that this is chronically so. No leg pain swelling or calf tenderness. No Homans sign. No chest pain or hemoptysis. - Lab Data Result diagrams: 02/01/19 21:10 02/01/19 21:10 Lab Results 02/01/19 02/01/19 02/01/19 Range/Units 21:10 21:10 21:10 WBC 5.7 (3.8-10.6) k/uL RBC 3.37 L (3.80-5.40) m/uL Hgb 10.7 L (11.4-16.0) gm/dL Hct 32.2 L (34.0-46.0) % MCV 95.6 (80.0-100.0) fL MCH 31.6 (25.0-35.0) pg MCHC 33.1 (31.0-37.0) g/dL RDW 13.3 (11.5-15.5) % Plt Count 334 (150-450) k/uL Neutrophils % 78 % Lymphocytes % 12 % Monocytes % 5 % Eosinophils % 1 % Basophils % 1 % Neutrophils # 4.5 (1.3-7.7) k/uL Lymphocytes # 0.7 L (1.0-4.8) k/uL Monocytes # 0.3 (0-1.0) k/uL Eosinophils # 0.1 (0-0.7) k/uL Basophils # 0.0 (0-0.2) k/uL PT 9.5 (9.0-12.0) sec INR 0.9 (<1.2) APTT 22.1 (22.0-30.0) sec D-Dimer 1.80 H (<0.60) mg/L FEU Sodium 140 (137-145) mmol/L Potassium 4.3 (3.5-5.1) mmol/L Chloride 105 (98-107) mmol/L Carbon Dioxide 29 (22-30) mmol/L Anion Gap 6 mmol/L BUN 26 H (7-17) mg/dL Creatinine 0.80 (0.52-1.04) mg/dL Est GFR (CKD-EPI)AfAm 82 (>60 ml/min/1.73 sqM) Est GFR (CKD-EPI)NonAf 72 (>60 ml/min/1.73 sqM) Glucose 124 H (74-99) mg/dL Calcium 9.5 (8.4-10.2) mg/dL Total Bilirubin 0.2 (0.2-1.3) mg/dL AST 25 (14-36) U/L ALT 21 (9-52) U/L Alkaline Phosphatase 65 (38-126) U/L Troponin I (0.000-0.034) ng/mL NT-Pro-B Natriuret Pep pg/mL Total Protein 7.0 (6.3-8.2) g/dL Albumin 4.3 (3.5-5.0) g/dL Influenza Type A RNA (Not Detectd) Influenza Type B (PCR) (Not Detectd) 02/01/19 02/01/19 02/01/19 Range/Units 21:10 21:10 21:10 WBC (3.8-10.6) k/uL RBC (3.80-5.40) m/uL Hgb (11.4-16.0) gm/dL Hct (34.0-46.0) % MCV (80.0-100.0) fL MCH (25.0-35.0) pg MCHC (31.0-37.0) g/dL RDW (11.5-15.5) % Plt Count (150-450) k/uL Neutrophils % % Lymphocytes % % Monocytes % % Eosinophils % % Basophils % % Neutrophils # (1.3-7.7) k/uL Lymphocytes # (1.0-4.8) k/uL Monocytes # (0-1.0) k/uL Eosinophils # (0-0.7) k/uL Basophils # (0-0.2) k/uL PT (9.0-12.0) sec INR (<1.2) APTT (22.0-30.0) sec D-Dimer (<0.60) mg/L FEU Sodium (137-145) mmol/L Potassium (3.5-5.1) mmol/L Chloride (98-107) mmol/L Carbon Dioxide (22-30) mmol/L Anion Gap mmol/L BUN (7-17) mg/dL Creatinine (0.52-1.04) mg/dL Est GFR (CKD-EPI)AfAm (>60 ml/min/1.73 sqM) Est GFR (CKD-EPI)NonAf (>60 ml/min/1.73 sqM) Glucose (74-99) mg/dL Calcium (8.4-10.2) mg/dL Total Bilirubin (0.2-1.3) mg/dL AST (14-36) U/L ALT (9-52) U/L Alkaline Phosphatase (38-126) U/L Troponin I <0.012 (0.000-0.034) ng/mL NT-Pro-B Natriuret Pep 237 pg/mL Total Protein (6.3-8.2) g/dL Albumin (3.5-5.0) g/dL Influenza Type A RNA Not Detected (Not Detectd) Influenza Type B (PCR) Not Detected (Not Detectd) - EKG Data -: EKG Interpreted by Me EKG shows normal: sinus rhythm, axis (Normal), intervals (Normal), QRS complexes Rate: tachycardia (Rate approximately 131.) Interpretation: nonspecific ST-T wave changes Disposition Clinical Impression: COPD with acute exacerbation Disposition: ADMITTED IP TO THIS HOSP Condition: Fair
[2019-02-01 21:41] LABS: Basophils % (A) 1 %; Eosinophils # (A) 0.1 k/uL (0-0.7); Eosinophils % (A) 1 %; HCT 32.2 % (34.0-46.0); HGB 10.7 gm/dL (11.4-16.0); Lymphocytes # (A) 0.7 k/uL (1.0-4.8); Lymphocytes % (A) 12 %; MCH 31.6 pg (25.0-35.0); MCHC 33.1 g/dL (31.0-37.0); MCV 95.6 fL (80.0-100.0); Mean Platelet Volume 5.7; Monocytes # (A) 0.3 k/uL (0-1.0); Monocytes % (A) 5 %; Neutrophils # (A) 4.5 k/uL (1.3-7.7); Neutrophils % (A) 78 %; Platelet Count 334 k/uL (150-450); RBC 3.37 m/uL (3.80-5.40); RDW 13.3 % (11.5-15.5); WBC 5.7 k/uL (3.8-10.6)
[2019-02-01 21:52] LABS: Albumin 4.3 g/dL (3.5-5.0); Calcium 9.5 mg/dL (8.4-10.2); Potassium 4.3 mmol/L (3.5-5.1); Total Bilirubin 0.2 mg/dL (0.2-1.3)
--- NOTE | 2019-02-01 21:52 | XR ---
EXAMINATION TYPE: XR chest 1V portable DATE OF EXAM: 02/01/2019 COMPARISON: August 31, 2018 HISTORY: Short of breath TECHNIQUE: Single frontal view of the chest is obtained. FINDINGS: There is no heart failure nor confluent pneumonic infiltrate. Costophrenic angles are parminder r. There are chest leads. IMPRESSION: No active cardiopulmonary disease. Normal heart. No change.
[2019-02-01 22:03] LABS: INR 0.9 (<1.2); Partial Thromboplastin Time 22.1 sec (22.0-30.0); Prothrombin Time 9.5 sec (9.0-12.0)
[2019-02-01 22:06] LABS: D-Dimer 1.8 mg/L FEU (<0.60)
[2019-02-01] MEDS ORDERED: ALBUTEROL NEBULIZED 2.5 MG/3 ML INHALATION PRN (22:26)
[2019-02-02] MEDS: SYMBICORT 160-4.5 MCG INHALER INHALATION SCH ×2 (07:28→19:40)
[2019-02-02] MEDS ORDERED: IPRATROPIUM-ALBUTEROL 3 ML NEB INHALATION SCH (08:00)
[2019-02-02] MEDS: FERROUS SULFATE 325 MG TAB PO SCH (08:40)
[2019-02-02] MEDS: LEVOTHYROXINE 25 MCG TAB PO SCH (08:40)
[2019-02-02] MEDS: LOSARTAN-HCTZ 50-12.5 MG 1 EACH TAB PO SCH (08:41)
[2019-02-02] MEDS ORDERED: predniSONE 20 MG TAB PO SCH (09:00)
[2019-02-02] MEDS ORDERED: HEPARIN SODIUM,PORCINE 5,000 UNIT/ML 1 ML VIAL SQ SCH (09:00)
[2019-02-02 09:03] VITALS: BMI 22.5
[2019-02-02] MEDS: IPRATROPIUM-ALBUTEROL 3 ML NEB INHALATION SCH ×4 (11:20→19:39)
[2019-02-02] MEDS: methylPREDNISolone SOD SUCCI 40 MG/ML 1 ML VIAL IV SCH ×2 (12:01→15:53)
--- NOTE | 2019-02-02 19:58 | P.HPIM ---
History of Present Illness H&P Date: 02/02/19 Chief Complaint: Wheezing and cough History of presenting complaint: This is a pleasant 78-year-old patient of Dr. Mckee from [facility]. Chronic stable medical conditions include hypertension, hypothyroid, hyperlipidemia. Patient is a known history of COPD. Patient's symptoms have been waxing and waning progressively getting worse. Patient is having progress kelly worsening wheezing cough not real sputum. Appetite has been fair. No fever no chills. Feeling tired rundown admitted for the same. In the ER patient could not even speak in full sentences. Admitted for the same. Review of systems: GEN.: Tired EYES: None HEENT: None NECK: None RESPIRATORY: Has above CARDIOVASCULAR: None GASTROINTESTINAL: None GENITOURINARY: None MUSCULOSKELETAL: None LYMPHATICS: None HEMATOLOGICAL: None PSYCHIATRY: None NEUROLOGICAL: None Social history: . We will call. Smoked for about 55 years. Stopped close to 5 years ago Physical examination: VITAL SIGNS: 98.3, 119, 28, 141 over 111, 94% on 2.5 L GENERAL: BMI 22.6, sitting up short of breath. EYES: Pupils equal. Conjunctiva normal. HEENT: External appearance of nose and ears normal, oral cavity grossly normal. NECK: JVD not raised; masses not palpable. HEART: First and second heart sounds are normal; no edema. LUNGS: Respiratory rate increased, diminished breath sounds prolonged expiration short of breath at rest. ABDOMEN: Soft, nontender, liver spleen not palpable, no masses palpable. PSYCH: Alert and oriented x3; mood and affect slightly anxiousl. NEUROLOGICAL: Cranial nerves grossly intact; no facial asymmetry, power and sensation grossly intact. LYMPHATICS: No lymph nodes palpable in the axilla and neck INVESTIGATIONS, reviewed in the clinical context: White count 5.70 growing 10.7 platelets 334 potassium 4.3 bun 26 creatinine 0.80 Troponin less than 0.012 proBNP 237 EKG tracing personally reviewed by me-sinus tachycardia Chest x-ray film personally reviewed by me-hyperinflation, lung hernandez are clear Influenza A and B both negative Assessment: -Acute COPD exacerbation in an ex-smoker, from acute tracheobronchitis -Essential hypertension, - hypothyroid -Normocytic anemia, cause unknown Plan: Patient started on DuoNeb nebulizer every 4 hours. We will also add nebulized steroids and inhaled steroids. Other home medications are to be continued. Care was discussed with the patient. Questions were answered. Past Medical History Past Medical History: Asthma, COPD, Hypertension Additional Past Medical History / Comment(s): BRONCHITIS, HOME O2 3 LITERS N/C, PNE VACCINE AFTER AGE 65-NOT SURE OF DATE. falls with "cracked hip" no surgery. History of Any Multi-Drug Resistant Organisms: None Reported Past Surgical History: Orthopedic Surgery Additional Past Surgical History / Comment(s): RT ROTATOR CUFF, right toe amputation (melanoma in toenail) Past Anesthesia/Blood Transfusion Reactions: No Reported Reaction Past Psychological History: No Psychological Hx Reported Smoking Status: Former smoker Past Alcohol Use History: None Reported Additional Past Alcohol Use History / Comment(s): STARTED SMOKING AT AGE 19, QUIT 4 years ago Past Drug Use History: None Reported - Past Family History Mother Family Medical History: CVA/TIA Additional Family Medical History / Comment(s): AT AGE 88 Father Family Medical History: Myocardial Infarction ([place]) Additional Family Medical History / Comment(s): OF [place] AT AGE 52 Medications and Allergies Home Medications Medication Instructions Recorded Confirmed Type Albuterol Sulfate [Proair Hfa] 2 puff INHALATION RT-Q4H PRN 01/14/16 02/01/19 History Budesonide/Formoterol Fumarate 2 puff INHALATION RT-BID 08/05/17 02/01/19 History [Symbicort 160-4.5 Mcg Inhaler] predniSONE 5 mg PO DAILY 08/05/17 02/01/19 History Losartan-Hctz 50-12.5 mg [Hyzaar 1 tab PO DAILY 08/31/18 02/01/19 History 50-12.5] Ergocalciferol [Vitamin D2] 50,000 unit PO SA 02/01/19 02/01/19 History Ferrous Sulfate [Feosol] 325 mg PO DAILY 02/01/19 02/01/19 History Ipratropium-Albuterol Nebulize 3 ml INHALATION RT-QID PRN 02/01/19 02/01/19 History [Duoneb 0.5 mg-3 mg/3 ml Soln] Levothyroxine Sodium [Synthroid] 25 mcg PO DAILY 02/01/19 02/01/19 History Allergies Allergy/AdvReac Type Severity Reaction Status Date / Time codeine AdvReac Nausea Verified 02/01/19 21:33 formoterol [From Perforomist] AdvReac Rapid Verified 02/01/19 21:33 Heart Rate Physical Exam Vitals: Vital Signs Temp Pulse Pulse Pulse Resp BP BP 02/02/19 08:41 107 H 02/02/19 07:38 100 02/02/19 07:32 02/02/19 07:27 100 02/02/19 07:15 98.1 F 103 H 20 121/65 02/02/19 01:44 107 H 02/02/19 01:40 98.6 F 110 H 34 H 130/98 02/02/19 01:32 109 H 02/02/19 01:13 107 H 26 H 02/02/19 01:00 109 H 17 120/58 02/02/19 00:50 108 H 10 L 120/58 02/02/19 00:40 100 13 120/58 02/02/19 00:30 98 15 120/60 02/02/19 00:23 02/02/19 00:20 99 18 120/60 02/02/19 00:10 104 H 8 L 120/60 02/02/19 00:00 106 H 19 118/55 02/01/19 23:50 112 H 20 118/55 02/01/19 22:40 116 H 25 H 129/60 02/01/19 22:00 129 H 24 155/78 02/01/19 21:50 134 H 30 H 155/78 02/01/19 21:40 134 H 32 H 155/78 02/01/19 21:38 124 H 25 H 02/01/19 21:35 30 H 02/01/19 21:32 126 H 28 H 02/01/19 21:06 98.3 F 119 H 28 H 146/111 Pulse Ox 02/02/19 08:41 02/02/19 07:38 02/02/19 07:32 100 02/02/19 07:27 02/02/19 07:15 99 02/02/19 01:44 02/02/19 01:40 99 02/02/19 01:32 02/02/19 01:13 02/02/19 01:00 97 02/02/19 00:50 100 02/02/19 00:40 99 02/02/19 00:30 99 02/02/19 00:23 98 02/02/19 00:20 99 02/02/19 00:10 99 02/02/19 00:00 98 02/01/19 23:50 100 02/01/19 22:40 99 02/01/19 22:00 98 02/01/19 21:50 97 02/01/19 21:40 100 02/01/19 21:38 02/01/19 21:35 02/01/19 21:32 02/01/19 21:06 94 L Intake and Output 02/01/19 02/02/19 02/02/19 22:59 06:59 14:59 Intake Total 200 Balance 200 Intake: Oral 200 Other: Weight 54.159 kg Results CBC & Chem 7: 02/01/19 21:10 02/01/19 21:10 Labs: Abnormal Lab Results - Last 24 Hours (Table) 02/01/19 02/01/19 02/01/19 Range/Units 21:10 21:10 21:10 RBC 3.37 L (3.80-5.40) m/uL Hgb 10.7 L (11.4-16.0) gm/dL Hct 32.2 L (34.0-46.0) % Lymphocytes # 0.7 L (1.0-4.8) k/uL D-Dimer 1.80 H (<0.60) mg/L FEU BUN 26 H (7-17) mg/dL Glucose 124 H (74-99) mg/dL Thrombosis Risk Factor Assmnt - Choose All That Apply Each Risk Factor Represents 3 Points: Age 75 years or older Thrombosis Risk Factor Assessment Total Risk Factor Score: 3 Thrombosis Risk Factor Assessment Level: Moderate Risk
[2019-02-02] MEDS: BUDESONIDE 1 MG/2 ML NEBU INHALATION SCH (20:02)
[2019-02-02] MEDS: FORMOTEROL FUMARATE 20 MCG/2 ML NEBU INHALATION SCH (20:04)
[2019-02-02] MEDS: ENOXAPARIN 40 MG/0.4 ML SYRINGE SQ SCH (22:34)
[2019-02-03] MEDS: methylPREDNISolone SOD SUCCI 40 MG/ML 1 ML VIAL IV SCH ×4 (00:43→23:55)
[2019-02-03] MEDS: IPRATROPIUM-ALBUTEROL 3 ML NEB INHALATION SCH ×7 (01:51→23:08)
[2019-02-03 05:22] VITALS: RESP 20
[2019-02-03] MEDS: LEVOTHYROXINE 25 MCG TAB PO SCH (05:28)
[2019-02-03] MEDS: FORMOTEROL FUMARATE 20 MCG/2 ML NEBU INHALATION SCH (07:09)
[2019-02-03] MEDS: BUDESONIDE 1 MG/2 ML NEBU INHALATION SCH ×2 (07:09→19:09)
[2019-02-03] MEDS: LOSARTAN-HCTZ 50-12.5 MG 1 EACH TAB PO SCH (08:22)
[2019-02-03] MEDS: FERROUS SULFATE 325 MG TAB PO SCH (08:22)
[2019-02-03] MEDS: ENOXAPARIN 40 MG/0.4 ML SYRINGE SQ SCH (20:15)
--- NOTE | 2019-02-03 22:47 | P.PN ---
Progress Note - Text Progress Note Date: 02/03/19 Chief Complaint: Wheezing and cough History of presenting complaint: This is a pleasant 78-year-old patient of Dr. Mckee from visiting physicians. Chronic stable medical conditions include hypertension, hypothyroid, hyperlipidemia. Patient is a known history of COPD. Patient's symptoms have been waxing and waning progressively getting worse. Patient is having progressive worsening wheezing cough not real sputum. Appetite has been fair. No fever no chills. Feeling tired rundown admitted for the same. In the ER patient could not even speak in full sentences. Admitted acute COPD exacerbation and tracheobronchitis. Today-. Initiate better. Some less wheezing. Patient is a bit anxious. Did tolerate some diet. Laying in bed. Review of systems: Was done for constitutional, cardiovascular, GI, pulmonary. relevant finding as above Active Medications Albuterol Sulfate (Ventolin Nebulized) 2.5 mg INHALATION RT-Q4H PRN PRN Reason: Dyspnea Last Admin: 02/02/19 01:31 Dose: 2.5 mg Documented by: Albuterol/Ipratropium (Duoneb 0.5 Mg-3 Mg/3 Ml Soln) 3 ml INHALATION RT-Q4H [facility] Last Admin: 02/03/19 19:09 Dose: 3 ml Documented by: Budesonide (Pulmicort) 1 mg INHALATION RT-BID [facility] Last Admin: 02/03/19 19:09 Dose: 1 mg Documented by: Enoxaparin Sodium (Lovenox) 40 mg SQ HS [facility] Last Admin: 02/03/19 20:15 Dose: 40 mg Documented by: Ergocalciferol (Vitamin D2) 50,000 unit PO Sa@0900 [facility] Ferrous Sulfate (Feosol) 325 mg PO DAILY [facility] Last Admin: 02/03/19 08:22 Dose: 325 mg Documented by: HCTZ/Losartan Potassium (Hyzaar 50-12.5) 1 each PO DAILY [facility] Last Admin: 02/03/19 08:22 Dose: 1 each Documented by: Levothyroxine Sodium (Synthroid) 25 mcg PO DAILY@0630 [facility] Last Admin: 02/03/19 05:28 Dose: 25 mcg Documented by: Methylprednisolone Sodium Succinate (Solu-Medrol) 40 mg IV Q8HR [facility] Last Admin: 02/03/19 15:31 Dose: 40 mg Documented by: Physical examination: VITAL SIGNS: 98.4, 87, 20, 101/60, 98% on 3 L GENERAL: Sitting on bed, a bit less short of breath EYES: Pupils equal. Conjunctiva normal. HEENT: External appearance of nose and ears normal, oral cavity grossly normal. NECK: JVD not raised; masses not palpable. HEART: First and second heart sounds are normal; no edema. LUNGS: Respiratory rate increased, diminished breath sounds prolonged expiration. ABDOMEN: Soft, nontender, liver spleen not palpable, no masses palpable. PSYCH: Alert and oriented x3; mood and affect slightly anxious INVESTIGATIONS, reviewed in the clinical context: White count 5.70 growing 10.7 platelets 334 potassium 4.3 bun 26 creatinine 0.80 Troponin less than 0.012 proBNP 237 EKG tracing personally reviewed by me-sinus tachycardia Chest x-ray film personally reviewed by me-hyperinflation, lung hernandez are clear Influenza A and B both negative Assessment: -Acute COPD exacerbation in an ex-smoker, from acute tracheobronchitis, slow to respond -Essential hypertension, - hypothyroid -Normocytic anemia, cause unknown -Anxiety not otherwise specified Plan: Can't do with the brace bronchodilators and IV steroids and inhaled steroids. Patient was counseled for anxiety. Feeling better. Expect the patient in the hospital for at least 1 or 2 days
[2019-02-04] MEDS: IPRATROPIUM-ALBUTEROL 3 ML NEB INHALATION SCH ×3 (04:17→11:23)
[2019-02-04] MEDS: LEVOTHYROXINE 25 MCG TAB PO SCH (05:38)
[2019-02-04 06:27] VITALS: BP 141/74; TEMP 98.2
[2019-02-04] MEDS: BUDESONIDE 1 MG/2 ML NEBU INHALATION SCH (07:37)
[2019-02-04] MEDS: FERROUS SULFATE 325 MG TAB PO SCH (08:10)
[2019-02-04] MEDS: LOSARTAN-HCTZ 50-12.5 MG 1 EACH TAB PO SCH (08:10)
[2019-02-04] MEDS: methylPREDNISolone SOD SUCCI 40 MG/ML 1 ML VIAL IV SCH (08:10)
[2019-02-04 11:38] VITALS: PULSE 84
[2019-02-04] MEDS ORDERED: predniSONE 20 MG TAB PO STA (12:06)
--- NOTE | 2019-02-04 23:09 | P.DS ---
Providers Date of admission: 02/01/19 22:26 Expected date of discharge: 02/04/19 Attending physician: Jamal Morley Primary care physician: Josué Mckee [facility] Course: Chief Complaint: Wheezing and cough History of presenting complaint: This is a pleasant 78-year-old patient of Dr. Mckee from visiting physicians. Chronic stable medical conditions include hypertension, hypothyroid, hyperlipidemia. Patient is a known history of COPD. Patient's symptoms have been waxing and waning progressively getting worse. Patient is having progressive worsening wheezing cough not real sputum. Appetite has been fair. No fever no chills. Feeling tired rundown admitted for the same. In the ER patient could not even speak in full sentences. Admitted acute COPD exacerbation and tracheobronchitis. Responded well to the wrist bronchodilators steroids. Patient was counseled about anxiety. Doing much better. Her expectations are more realistic now Today-doing much better. Care was discussed in detail. Question were also. Physical examination: VITAL SIGNS: 98.2, 79, 20, 141/74, 96% on 3 L GENERAL: Sitting on bed, a bit less short of breath EYES: Pupils equal. Conjunctiva normal. HEENT: External appearance of nose and ears normal, oral cavity grossly normal. NECK: JVD not raised; masses not palpable. HEART: First and second heart sounds are normal; no edema. LUNGS: Respiratory rate normal, diminished breath sounds ABDOMEN: Soft, nontender, liver spleen not palpable, no masses palpable. PSYCH: Alert and oriented x3; mood and affect slightly anxious INVESTIGATIONS, reviewed in the clinical context: White count 5.70 growing 10.7 platelets 334 potassium 4.3 bun 26 creatinine 0.80 Troponin less than 0.012 proBNP 237 EKG tracing personally reviewed by me-sinus tachycardia Chest x-ray film personally reviewed by me-hyperinflation, lung hernandez are clear Influenza A and B both negative Assessment: -Acute COPD exacerbation in an ex-smoker, from acute tracheobronchitis, improved -Essential hypertension, - hypothyroid -Normocytic anemia, cause unknown -Anxiety not otherwise specified Disposition: Home Patient Condition at Discharge: Stable Plan - Discharge Summary Discharge Rx Participant: No New Discharge Prescriptions: New predniSONE 10 mg PO DAILY #30 tab Continue Albuterol Sulfate [Proair Hfa] 2 puff INHALATION RT-Q4H PRN PRN Reason: Shortness Of Breath Budesonide/Formoterol Fumarate [Symbicort 160-4.5 Mcg Inhaler] 2 puff INHALATION RT-BID predniSONE 5 mg PO DAILY Losartan-Hctz 50-12.5 mg [Hyzaar 50-12.5] 1 tab PO DAILY Ergocalciferol [Vitamin D2 (DRISDOL)] 50,000 unit PO SA Levothyroxine Sodium [Synthroid] 25 mcg PO DAILY Ferrous Sulfate [Iron (65 MG Elemental)] 325 mg PO DAILY Ipratropium-Albuterol Nebulize [Duoneb 0.5 mg-3 mg/3 ml Soln] 3 ml INHALATION RT-QID PRN PRN Reason: Shortness Of Breath Discharge Medication List Albuterol Sulfate [Proair Hfa] 2 puff INHALATION RT-Q4H PRN 01/14/16 [History] Budesonide/Formoterol Fumarate [Symbicort 160-4.5 Mcg Inhaler] 2 puff INHALATION RT-BID 08/05/17 [History] predniSONE 5 mg PO DAILY 08/05/17 [History] Losartan-Hctz 50-12.5 mg [Hyzaar 50-12.5] 1 tab PO DAILY 08/31/18 [History] Ergocalciferol [Vitamin D2 (DRISDOL)] 50,000 unit PO SA 02/01/19 [History] Ferrous Sulfate [Iron (65 MG Elemental)] 325 mg PO DAILY 02/01/19 [History] Ipratropium-Albuterol Nebulize [Duoneb 0.5 mg-3 mg/3 ml Soln] 3 ml INHALATION RT-QID PRN 02/01/19 [History] Levothyroxine Sodium [Synthroid] 25 mcg PO DAILY 02/01/19 [History] predniSONE 10 mg PO DAILY #30 tab 02/04/19 [Rx] Follow up Appointment(s)/Referral(s): Josué Mckee MD [Primary Care Provider] - 1-2 days Patient Instructions/Handouts: COPD (Chronic Obstructive Pulmonary Disease) (DC) Discharge Disposition: HOME SELF-CARE
[2019-02-07] MEDS ORDERED: ERGOCALCIFEROL 50,000 UNIT CAP PO SCH (09:00)
== END 2019-02-04 14:12 | disposition home or self-care (01) | DRG 192 ==
LOC: EC 21:02 → 4MS4W 22:26 → 3NMEDONC 23:10 → 4MS4W 02-02 00:20
PROVIDERS: ADMIT Hospitalist; ATTEND Hospitalist
DX: J44.0 Chronic obstructive pulmonary disease with (acute) lower respiratory infection (principal); J44.1 Chronic obstructive pulmonary disease with (acute) exacerbation; J20.9 Acute bronchitis, unspecified; D64.9 Anemia, unspecified; E03.9 Hypothyroidism, unspecified; E78.5 Hyperlipidemia, unspecified; F41.9 Anxiety disorder, unspecified; I10 Essential (primary) hypertension; Z79.51 Long term (current) use of inhaled steroids; Z79.890 Hormone replacement therapy; Z82.49 Family history of ischemic heart disease and other diseases of the circulatory system; Z85.820 Personal history of malignant melanoma of skin; Z87.891 Personal history of nicotine dependence; Z88.5 Allergy status to narcotic agent; Z88.8 Allergy status to other drugs, medicaments and biological substances; Z82.3 Family history of stroke; Z79.899 Other long term (current) drug therapy; Z99.81 Dependence on supplemental oxygen
CPT/HCPCS: 36415; 71045; 80053; 83880; 84484; 85025; 85379; 85610; 85730; 87502; 93005; 94640; 94660; 94760; 99285

== ENCOUNTER 2019-03-08 12:30 | Inpatient (IN) | payer MEDICARE ==
[2019-03-08] MEDS ORDERED: ALBUTEROL NEBULIZED 2.5 MG/3 ML INHALATION STA (12:34)
[2019-03-08] MEDS ORDERED: methylPREDNISolone SOD SUCCI 125 MG/2 ML VIAL IV STA (12:34)
[2019-03-08] MEDS ORDERED: IPRATROPIUM 0.5 MG/2.5 ML NEBU INHALATION STA (12:34)
[2019-03-08] MEDS ORDERED: MAGNESIUM SULFATE-D5W PMX 1 GM in DEXTROSE/WATER 1 100ML.BAG IVPB STA (12:34)
[2019-03-08 12:48] LABS: Basophils % (A) 1 %; Eosinophils % (A) 1 %; Lymphocytes # (A) 0.5 k/uL (1.0-4.8); Lymphocytes % (A) 7 %; MCH 32.5 pg (25.0-35.0); MCHC 34.3 g/dL (31.0-37.0); MCV 94.8 fL (80.0-100.0); Mean Platelet Volume 6.1; Monocytes # (A) 0.8 k/uL (0-1.0); Monocytes % (A) 12 %; Neutrophils % (A) 76 %; Platelet Count 489 k/uL (150-450); RBC 3.38 m/uL (3.80-5.40); RDW 13.3 % (11.5-15.5); WBC 6.6 k/uL (3.8-10.6)
[2019-03-08 13:00] LABS: INR 0.8 (<1.2); Partial Thromboplastin Time 22.1 sec (22.0-30.0); Prothrombin Time 9.3 sec (9.0-12.0)
[2019-03-08 13:08] LABS: Albumin 4.2 g/dL (3.5-5.0); Calcium 9.4 mg/dL (8.4-10.2); Magnesium 2.3 mg/dL (1.6-2.3); Potassium 4.2 mmol/L (3.5-5.1); Total Bilirubin 0.7 mg/dL (0.2-1.3)
--- NOTE | 2019-03-08 13:22 | XR ---
EXAMINATION TYPE: XR chest 1V DATE OF EXAM: 03/08/2019 HISTORY: Chest Pain. REFERENCE: Previous study dated 02/01/2019. FINDINGS: Lung volumes are prominent. The lungs are clear. There is mild blunting of both CP angles l ikely due to overinflation. The heart is not enlarged. There is a mild dextroscoliosis. IMPRESSION: PLEASE CORRELATE FOR COPD
[2019-03-08 13:58] LABS: ABG Base Excess 2.1 mmol/L; ABG HCO3 28 mmol/L (21-25); ABG Oxygen Saturation 99.1 % (94-97); ABG PCO2 55 mmHg (35-45); ABG PH 7.32 (7.35-7.45); ABG PO2 118 mmHg (83-108); ABG TCO2 30 mmol/L (19-24); Allen Test Performed? Yes
--- NOTE | 2019-03-08 14:26 | ED ---
SOB HPI - General Chief Complaint: Shortness of Breath Stated Complaint: JADEN Time Seen by Provider: 03/08/19 12:34 Source: patient, EMS Mode of arrival: EMS Limitations: no limitations - History of Present Illness Initial Comments: Patient presents with shortness of breath. Her symptoms are getting worse for couple days. Nothing makes the shortness of breath better or worse specifically. She has not taken any specific medications that are new to help with the symptoms. She has no chest or belly or back pain. She has no cough. She has no sick contacts or recent travel. She was not doing anything when the symptoms began. - Related Data Home Medications Medication Instructions Recorded Confirmed Albuterol Sulfate [Proair Hfa] 2 puff INHALATION RT-Q4H PRN 01/14/16 02/01/19 Budesonide/Formoterol Fumarate 2 puff INHALATION RT-BID 08/05/17 02/01/19 [Symbicort 160-4.5 Mcg Inhaler] predniSONE 5 mg PO DAILY 08/05/17 02/01/19 Losartan-Hctz 50-12.5 mg [Hyzaar 1 tab PO DAILY 08/31/18 02/01/19 50-12.5] Ergocalciferol [Vitamin D2 50,000 unit PO SA 02/01/19 02/01/19 (DRISDOL)] Ferrous Sulfate [Iron (65 MG 325 mg PO DAILY 02/01/19 02/01/19 Elemental)] Ipratropium-Albuterol Nebulize 3 ml INHALATION RT-QID PRN 02/01/19 02/01/19 [Duoneb 0.5 mg-3 mg/3 ml Soln] Levothyroxine Sodium [Synthroid] 25 mcg PO DAILY 02/01/19 02/01/19 Previous Rx's Medication Instructions Recorded predniSONE 10 mg PO DAILY #30 tab 02/04/19 Allergies Allergy/AdvReac Type Severity Reaction Status Date / Time codeine AdvReac Nausea Verified 03/08/19 12:37 formoterol [From Perforomist] AdvReac Rapid Verified 03/08/19 12:37 Heart Rate Review of Systems ROS Statement: Those systems with pertinent positive or pertinent negative responses have been documented in the HPI. ROS Other: All systems not noted in ROS Statement are negative. Past Medical History Past Medical History: Asthma, COPD, Hypertension Additional Past Medical History / Comment(s): BRONCHITIS, HOME O2 3 LITERS N/C, PNE VACCINE AFTER AGE 66-NOT SURE OF DATE. falls with "cracked hip" no surgery. History of Any Multi-Drug Resistant Organisms: None Reported Past Surgical History: Orthopedic Surgery Additional Past Surgical History / Comment(s): RT ROTATOR CUFF, right toe amputation (melanoma in toenail) Past Anesthesia/Blood Transfusion Reactions: No Reported Reaction Past Psychological History: No Psychological Hx Reported Smoking Status: Former smoker Past Alcohol Use History: None Reported Past Drug Use History: None Reported - Past Family History Mother Family Medical History: CVA/TIA Additional Family Medical History / Comment(s): AT AGE 88 Father Family Medical History: Myocardial Infarction ([place]) Additional Family Medical History / Comment(s): OF NE AT AGE 52 General Exam Limitations: no limitations General appearance: alert, in no apparent distress Head exam: Present: atraumatic, normocephalic, normal inspection Eye exam: Present: normal appearance, PERRL, EOMI. Absent: scleral icterus, conjunctival injection, periorbital swelling ENT exam: Present: normal exam, mucous membranes moist Neck exam: Present: normal inspection. Absent: tenderness, meningismus, lymphadenopathy Respiratory exam: Present: respiratory distress, wheezes, accessory muscle use. Absent: rales, rhonchi, stridor Cardiovascular Exam: Present: regular rate, normal rhythm, normal heart sounds. Absent: systolic murmur, diastolic murmur, rubs, gallop, clicks GI/Abdominal exam: Present: soft, normal bowel sounds. Absent: distended, tenderness, guarding, rebound, rigid Extremities exam: Present: normal inspection, full ROM, normal capillary refill. Absent: tenderness, pedal edema, joint swelling, calf tenderness Back exam: Present: normal inspection Neurological exam: Present: alert, oriented X3, CN II-XII intact Psychiatric exam: Present: normal affect, normal mood Skin exam: Present: warm, dry, intact, normal color. Absent: rash Course Vital Signs 03/08/19 03/08/19 03/08/19 12:32 12:36 12:55 Temperature 98 F Pulse Rate 110 H 112 H Respiratory 42 H 41 H Rate Blood Pressure 139/69 139/69 O2 Sat by Pulse 95 Oximetry 03/08/19 03/08/19 03/08/19 13:00 13:09 13:30 Temperature Pulse Rate 118 H Respiratory Rate Blood Pressure 139/69 119/58 O2 Sat by Pulse Oximetry Medical Decision Making - Medical Decision Making Patient complains of shortness of breath. She has no pneumonia, likely just a COPD exacerbation. She does have a slight bump in her BUN/creatinine creatinine as well. She is not feeling any better after IV magnesium, breathing treatments and steroids. She will be admitted to the hospital. - Lab Data Result diagrams: 03/08/19 12:40 03/08/19 12:40 Lab Results 03/08/19 03/08/19 03/08/19 Range/Units 12:40 12:40 12:40 WBC 6.6 (3.8-10.6) k/uL RBC 3.38 L (3.80-5.40) m/uL Hgb 11.0 L (11.4-16.0) gm/dL Hct 32.0 L (34.0-46.0) % MCV 94.8 (80.0-100.0) fL MCH 32.5 (25.0-35.0) pg MCHC 34.3 (31.0-37.0) g/dL RDW 13.3 (11.5-15.5) % Plt Count 489 H (150-450) k/uL Neutrophils % 76 % Lymphocytes % 7 % Monocytes % 12 % Eosinophils % 1 % Basophils % 1 % Neutrophils # 5.0 (1.3-7.7) k/uL Lymphocytes # 0.5 L (1.0-4.8) k/uL Monocytes # 0.8 (0-1.0) k/uL Eosinophils # 0.0 (0-0.7) k/uL Basophils # 0.0 (0-0.2) k/uL PT (9.0-12.0) sec INR (<1.2) APTT (22.0-30.0) sec Sample Site ABG pH (7.35-7.45) ABG pCO2 (35-45) mmHg ABG pO2 (83-108) mmHg ABG HCO3 (21-25) mmol/L ABG Total CO2 (19-24) mmol/L ABG O2 Saturation (94-97) % ABG Base Excess mmol/L Arnaldo Test FiO2 % Sodium 139 (137-145) mmol/L Potassium 4.2 (3.5-5.1) mmol/L Chloride 98 (98-107) mmol/L Carbon Dioxide 27 (22-30) mmol/L Anion Gap 14 mmol/L BUN 46 H (7-17) mg/dL Creatinine 2.00 H (0.52-1.04) mg/dL Est GFR (CKD-EPI)AfAm 27 (>60 ml/min/1.73 sqM) Est GFR (CKD-EPI)NonAf 24 (>60 ml/min/1.73 sqM) Glucose 167 H (74-99) mg/dL Calcium 9.4 (8.4-10.2) mg/dL Magnesium 2.3 (1.6-2.3) mg/dL Total Bilirubin 0.7 (0.2-1.3) mg/dL AST 27 (14-36) U/L ALT 29 (9-52) U/L Alkaline Phosphatase 76 (38-126) U/L Troponin I (0.000-0.034) ng/mL NT-Pro-B Natriuret Pep 705 pg/mL Total Protein 7.0 (6.3-8.2) g/dL Albumin 4.2 (3.5-5.0) g/dL 03/08/19 03/08/19 03/08/19 Range/Units 12:40 12:40 13:55 WBC (3.8-10.6) k/uL RBC (3.80-5.40) m/uL Hgb (11.4-16.0) gm/dL Hct (34.0-46.0) % MCV (80.0-100.0) fL MCH (25.0-35.0) pg MCHC (31.0-37.0) g/dL RDW (11.5-15.5) % Plt Count (150-450) k/uL Neutrophils % % Lymphocytes % % Monocytes % % Eosinophils % % Basophils % % Neutrophils # (1.3-7.7) k/uL Lymphocytes # (1.0-4.8) k/uL Monocytes # (0-1.0) k/uL Eosinophils # (0-0.7) k/uL Basophils # (0-0.2) k/uL PT 9.3 (9.0-12.0) sec INR 0.8 (<1.2) APTT 22.1 (22.0-30.0) sec Sample Site RBRACH ABG pH 7.32 L (7.35-7.45) ABG pCO2 55 H (35-45) mmHg ABG pO2 118 H (83-108) mmHg ABG HCO3 28 H (21-25) mmol/L ABG Total CO2 30 H (19-24) mmol/L ABG O2 Saturation 99.1 H (94-97) % ABG Base Excess 2.1 mmol/L Arnaldo Test Yes FiO2 40 % Sodium (137-145) mmol/L Potassium (3.5-5.1) mmol/L Chloride (98-107) mmol/L Carbon Dioxide (22-30) mmol/L Anion Gap mmol/L BUN (7-17) mg/dL Creatinine (0.52-1.04) mg/dL Est GFR (CKD-EPI)AfAm (>60 ml/min/1.73 sqM) Est GFR (CKD-EPI)NonAf (>60 ml/min/1.73 sqM) Glucose (74-99) mg/dL Calcium (8.4-10.2) mg/dL Magnesium (1.6-2.3) mg/dL Total Bilirubin (0.2-1.3) mg/dL AST (14-36) U/L ALT (9-52) U/L Alkaline Phosphatase (38-126) U/L Troponin I <0.012 (0.000-0.034) ng/mL NT-Pro-B Natriuret Pep pg/mL Total Protein (6.3-8.2) g/dL Albumin (3.5-5.0) g/dL - Radiology Data Interpreted by me: Twelve-lead EKG shows ventricular rate 119 bpm, normal MS interval and QRS complexes, no ST elevation or depression, interpreted by me as sinus tachycardia. Critical Care Time Critical Care Time: Yes Total Critical Care Time: 35 Disposition Clinical Impression: COPD (chronic obstructive pulmonary disease) Disposition: ADMITTED IP TO THIS [facility] Condition: Serious Is patient prescribed a controlled substance at d/c from ED?: No Referrals: Josué Mckee MD [Primary Care Provider] - 1-2 days
[2019-03-08] MEDS ORDERED: TEMAZEPAM 15 MG CAP PO PRN (14:38)
[2019-03-08] MEDS ORDERED: MORPHINE SULFATE 4 MG/ML SYRINGE IV PRN (14:38)
[2019-03-08] MEDS ORDERED: ONDANSETRON 4 MG/2 ML VIAL IVP PRN (14:38)
[2019-03-08] MEDS ORDERED: NALOXONE 0.4 MG/ML 1 ML VIAL IV PRN (14:38)
[2019-03-08] MEDS ORDERED: DOCUSATE 100 MG CAP PO PRN (14:38)
[2019-03-08] MEDS ORDERED: traMADol 50 MG TAB PO PRN (14:38)
[2019-03-08] MEDS ORDERED: IPRATROPIUM-ALBUTEROL 3 ML NEB INHALATION PRN (14:40)
[2019-03-08] MEDS ORDERED: ALBUTEROL NEBULIZED 2.5 MG/3 ML INHALATION PRN (14:40)
[2019-03-08] MEDS ORDERED: SODIUM CHLORIDE 0.9% 1,000 ML IV STA (14:53)
[2019-03-08] MEDS ORDERED: SODIUM CHLORIDE 0.9% 500 ML 500 ML IV ONE (15:01)
[2019-03-08] MEDS: IPRATROPIUM-ALBUTEROL 3 ML NEB INHALATION SCH ×3 (16:18→21:45)
[2019-03-08] MEDS: methylPREDNISolone SOD SUCCI 125 MG/2 ML VIAL IV SCH (16:35)
--- NOTE | 2019-03-08 16:44 | P.HPIM ---
History of Present Illness H&P Date: 03/08/19 Chief Complaint: Difficulty breathing the patient is a 78-year-old female with a past mental history of essential hypertension , hypothyroidism and Alzheimer's dementia, COPD with chronic respiratory failure on 2 L via nasal cannula who is also steroid dependent that presented to the ER via EMS with chief complaints of increasing shortness of breath for the last 3-5 days, the patient is currently on BiPAP and is slightly confused has most of the history is obtained from her Braden. Apparently the patient has had a intimately productive cough for the last 5 days, and has had increasing dyspnea on exertion, no reports of fevers or chills or night sweats. The patient has had increased usage of her nebulizer and rescue inhalers at home without any significant improvement. The patient was discharged approximately a month ago for COPD exacerbation. In the ER the patient was noted to be hypoxic on her baseline O2 requirements of 2 L with oxygen saturations of 78%, the chest x-ray was consistent with COPD without any acute infiltrates, EKG showed sinus tachycardia without suggestion of acute ischemia. Troponin was less than 0.012 NT proBNP 705, WBC 6.6 hemoglobin 11 platelets 489 sodium 139 potassium 4.2 BUN 46 creatinine 2.0. ABG consistent with respiratory acidosis pH of 7.32/55/118 on BiPAP 40% FiO2 12/5 Review of Systems Pertinent positives per HPI all other review is otherwise negative Past Medical History Past Medical History: Asthma, COPD, Hypertension Additional Past Medical History / Comment(s): BRONCHITIS, HOME O2 3 LITERS N/C, PNE VACCINE AFTER AGE 66-NOT SURE OF DATE. falls with "cracked hip" no surgery. History of Any Multi-Drug Resistant Organisms: None Reported Past Surgical History: Orthopedic Surgery Additional Past Surgical History / Comment(s): RT ROTATOR CUFF, right toe amputation (melanoma in toenail) Past Anesthesia/Blood Transfusion Reactions: No Reported Reaction Past Psychological History: No Psychological Hx Reported Smoking Status: Former smoker Past Alcohol Use History: None Reported Past Drug Use History: None Reported - Past Family History Mother Family Medical History: CVA/TIA Additional Family Medical History / Comment(s): AT AGE 88 Father Family Medical History: Myocardial Infarction ([place]) Additional Family Medical History / Comment(s): OF [place] AT AGE 52 Medications and Allergies Home Medications Medication Instructions Recorded Confirmed Type Budesonide/Formoterol Fumarate 2 puff INHALATION RT-BID 08/05/17 03/08/19 History [Symbicort 160-4.5 Mcg Inhaler] predniSONE 5 mg PO DAILY 08/05/17 03/08/19 History Losartan-Hctz 50-12.5 mg [Hyzaar 1 tab PO DAILY 08/31/18 03/08/19 History 50-12.5] Ergocalciferol [Vitamin D2 50,000 unit PO SA 02/01/19 03/08/19 History (DRISDOL)] Ferrous Sulfate [Iron (65 MG 325 mg PO DAILY 02/01/19 03/08/19 History Elemental)] Ipratropium-Albuterol Nebulize 3 ml INHALATION RT-QID PRN 02/01/19 03/08/19 History [Duoneb 0.5 mg-3 mg/3 ml Soln] Levothyroxine Sodium [Synthroid] 25 mcg PO DAILY 02/01/19 03/08/19 History Albuterol Inhaler [Ventolin Hfa 2 puff INHALATION RT-Q6H PRN 03/08/19 03/08/19 History Inhaler] Allergies Allergy/AdvReac Type Severity Reaction Status Date / Time codeine AdvReac Nausea Verified 03/08/19 14:57 formoterol [From Perforomist] AdvReac Rapid Verified 03/08/19 14:57 Heart Rate Physical Exam Vitals: Vital Signs Temp Pulse Resp BP Pulse Ox 03/08/19 14:37 124/82 03/08/19 13:37 121/71 03/08/19 13:30 119/58 03/08/19 13:09 118 H 03/08/19 13:00 139/69 03/08/19 12:55 112 H 41 H 03/08/19 12:37 119/58 03/08/19 12:36 139/69 03/08/19 12:32 98 F 110 H 42 H 139/69 95 Intake and Output 03/07/19 03/08/19 03/08/19 22:59 06:59 14:59 Other: Weight 49.895 kg Constitutional: Mild to moderate respiratory distress with conversational dyspnea, conversant, pleasant Eyes: Anicteric sclerae, moist conjunctiva, no lid-lag, PERRLA ENMT: NC/AT,Oropharynx clear, no erythema, exudates Neck:Supple, FROM, no masses, or JVD, No carotid bruits; No thyromegaly Lungs: Diffuse wheezes, conversant with dyspnea, currently on BiPAP Cardiovascular: Heart regular in rate and rhythm, No murmurs, gallops, or rubs no peripheral edema Abdominal: Soft Nontender, nom distended, no guarding, no rebound or rigidity, Normoactive bowel sounds No hepatomegaly, No splenomegaly, No palpable mass No abdominal wall hernia noted Skin: Normal temperature, tone, texture, turgor, No induration No subcutaneous nodules, No rash, lesions, No ulcers Extremities:No digital cyanosis No clubbing, Pedal pulses intact and symmetrical Radial pulses intact and symmetrical Normal gait and station, No calf tenderness Psychiatric: Alert and oriented to person, place and time, Appropriate affect Intact judgement Neuro: Muscles Strength 5/5 in all 4 extremities, Sensation to light touch grossly present throughout, Cranial nerves II-XII grossly intact. No focal sensory deficits Results CBC & Chem 7: 03/08/19 12:40 03/08/19 12:40 Labs: Abnormal Lab Results - Last 24 Hours (Table) 03/08/19 03/08/19 03/08/19 Range/Units 12:40 12:40 13:55 RBC 3.38 L (3.80-5.40) m/uL Hgb 11.0 L (11.4-16.0) gm/dL Hct 32.0 L (34.0-46.0) % Plt Count 489 H (150-450) k/uL Lymphocytes # 0.5 L (1.0-4.8) k/uL ABG pH 7.32 L (7.35-7.45) ABG pCO2 55 H (35-45) mmHg ABG pO2 118 H (83-108) mmHg ABG HCO3 28 H (21-25) mmol/L ABG Total CO2 30 H (19-24) mmol/L ABG O2 Saturation 99.1 H (94-97) % BUN 46 H (7-17) mg/dL Creatinine 2.00 H (0.52-1.04) mg/dL Glucose 167 H (74-99) mg/dL Assessment and Plan Assessment: Acute COPD exacerbation Acute on chronic respiratory failure with with hypoxemia and hypercarbia ILEANA Essential hypertension Hypothyroidism Thrombocytosis Plan: The patient is admitted anticipated greater than 2 midnight stay with acute COPD exacerbation, with acute on chronic respiratory failure with hypoxia and hypercapnia that was placed on supplemental oxygen with BiPAP FiO2 of 40% which will be continued. She is continued on systemic steroids with Solu-Medrol, albuterol and Atrovent DuoNeb bronchodilator DuoNeb breathing treatments scheduled and PRN , Mucinex and Symbicort with plans for pulmonary consultation. The patient is noted to have acute kidney injury secondary to dehydration is given a bolus of I L NS and placed on maintenance fluids. We'll continue to follow her clinical course CODE STATUS: DO NOT RESUSCITATE/DO NOT INTUBATE Discussed plan of care with; patient's daughter and Braden Anticipated discharge: 1-[address]: Home Prophylaxis SCDs heparin and Protonix
--- NOTE | 2019-03-08 16:56 | P.HPADDEND ---
H&P Addendum H&P Addendum Date: 03/08/19 Diagnosis : Acute on chronic Chronic respiratory failure with hypoxia and hypercarbia, end-stage COPD, COPD exacerbation, acute kidney injury Discussion: In reviewing the patient's chart and overall health it appears that she has acute on chronic chronic respiratory failure with hypoxemia and hyperCAPNIA due to advanced COPD, she is also steroid dependent presented and is currently on BiPAP, I discussed CODE STATUS Discussed with the patient and her daughter and and they have elected to proceed with DNR/DNI CODE STATUS: DO NOT RESUSCITATE DO NOT INTUBATE This discussion took approximately 17 minutes
[2019-03-08 17:47] LABS: Glucose,Whole Blood 190 mg/dL (75-99)
[2019-03-08 18:02] LABS: ABG Base Excess 1.7 mmol/L; ABG HCO3 28 mmol/L (21-25); ABG Oxygen Saturation 98.2 % (94-97); ABG PCO2 54 mmHg (35-45); ABG PH 7.32 (7.35-7.45); ABG PO2 113 mmHg (83-108); ABG TCO2 29 mmol/L (19-24); Allen Test Performed? Yes
[2019-03-08 18:09] LABS: Basophils % (A) 0 %; Eosinophils % (A) 0 %; HCT 31.1 % (34.0-46.0); HGB 10.3 gm/dL (11.4-16.0); Lymphocytes # (A) 0.1 k/uL (1.0-4.8); Lymphocytes % (A) 2 %; MCH 31.7 pg (25.0-35.0); MCHC 33.1 g/dL (31.0-37.0); MCV 95.9 fL (80.0-100.0); Mean Platelet Volume 6.3; Monocytes # (A) 0.3 k/uL (0-1.0); Monocytes % (A) 5 %; Neutrophils # (A) 4.8 k/uL (1.3-7.7); Neutrophils % (A) 92 %; Platelet Count 435 k/uL (150-450); RBC 3.24 m/uL (3.80-5.40); RDW 13.3 % (11.5-15.5); WBC 5.3 k/uL (3.8-10.6)
[2019-03-08 18:25] LABS: INR 0.8 (<1.2); Partial Thromboplastin Time 22.1 sec (22.0-30.0); Prothrombin Time 9.3 sec (9.0-12.0)
--- NOTE | 2019-03-08 18:25 | CT ---
EXAMINATION TYPE: CT brain wo con for TPA DATE OF EXAM: 03/08/2019 COMPARISON: None HISTORY: Altered mental status. CT DLP: 1217.4 mGycm Automated exposure control for dose reduction was used. TECHNIQUE: CT scan of the head is performed without contrast. FINDINGS: There is no acute intracranial hemorrhage or midline shift identified. There is a area of hypoattenuation in the left parietal lobe in the watershed zone on image 32 that is asymmetric to th e right and appears to involve the rider and white matter also seen on image 33 and 34. Old lacunar in jury of the left lentiform nucleus as well as the right internal capsule and the anterior limb. There is diffuse ventricular and sulcal prominence consistent with diffuse age-related cerebral atrophy. There is low-attenuation in the periventricular white matter consistent with chronic small vessel isc hemic change. Early basal ganglia calcifications. The globes are intact and the visualized sinuses ar e clear. Extensive atheromatous changes are seen of the intracranial vasculature particularly of th e distal internal carotid arteries, supraclinoid portions of the internal carotid arteries and cavern ous portions of the internal carotid arteries. IMPRESSION: 1. Asymmetric low density in the left parietal lobe in the watershed zone could relate to acute to hinojosa bacute infarct. 2. Extensive atherosclerosis, most notably in the distal internal carotid arteries, supraclinoid port ions of the internal carotid arteries and cavernous portions of the internal carotid arteries. 3. Diffuse age-related cerebral atrophy and chronic small vessel ischemic change noted. 4. Old lacunar injuries of the left lentiform nucleus and right internal capsule.
[2019-03-08 18:42] LABS: Calcium 9.4 mg/dL (8.4-10.2); Potassium 4.5 mmol/L (3.5-5.1); Total Bilirubin 0.6 mg/dL (0.2-1.3); Total Protein 6.6 g/dL (6.3-8.2)
[2019-03-08] MEDS ORDERED: ALTEPLASE IV STA (18:46)
[2019-03-08] MEDS ORDERED: ALTEPLASE BOLUS 4 MG in EMPTY SYRINGE 1 SYR IV STA (18:46)
--- NOTE | 2019-03-08 19:31 | CT ---
EXAMINATION TYPE: CODE STROKE: CTA head neck DATE OF EXAM: 03/08/2019 HISTORY: CVA, altered mental status COMPARISON: CT brain same day CT DLP: 327.6 mGycm. Automated Exposure Control for Dose Reduction was Utilized. TECHNIQUE: CTA scan of the neck is performed with IV Contrast, patient injected with 65cc mL of Isov ue 370, axial images are obtained, coronal and sagittal reformatted images are reviewed. Three-D marianne nstructed images are created on an independent workstation and reviewed. FINDINGS: CTA NECK: Three-vessel arch. Atherosclerotic calcifications of the aortic arch extending into the proximal grea t vessels. At least mild narrowing at the right brachiocephalic ostia. The proximal right subclavian artery demonstrates greater than 75% stenosis due to combination of calcified and noncalcified plaque . At least mild narrowing at the origin of the left subclavian artery. Occlusion of the left common carotid artery with reconstitution via collateralization near the caroti d bifurcation. Left external carotid artery is opacified. There is moderate stenosis at the proximal left internal carotid artery due to eccentric calcified plaque; its mid and distal cervical portions are patent. At least mild narrowing at the right common carotid artery origin. Calcified plaque of the proximal r ight common carotid artery without significant stenosis. Calcified plaque at the carotid bifurcation results in at least moderate stenosis of the proximal right internal carotid artery; its mid and dist al cervical portions are patent. Right external carotid arteries opacified. The left vertebral artery is dominant, diminutive size of the right vertebral artery. Vertebral arter ies are patent. CTA HEAD: Atherosclerotic calcifications of the left cavernous carotid artery which is otherwise patent. There is abrupt cut off at the left M1 middle cerebral artery segment with nonopacification of more distal middle cerebral artery segments. Left A1 MATEO segment is patent. Bilateral A2 MATEO segments are patent. Atherosclerotic calcifications of the right cavernous carotid artery, otherwise patent. The right M1 and M2 segments middle cerebral artery are patent. Right A1 segment anterior cerebral artery is not w ell visualized and may be hypoplastic. Bilateral A2 MATEO segments are patent. Distal vertebral arteries and basilar artery are patent. Posterior cerebral arteries are patent. The bilateral posterior communicating arteries are visualized. Other: Centrilobular emphysematous changes of the lung apices. IMPRESSION: 1. Occlusion of the proximal left M1 middle cerebral artery segment is likely embolic. No perfusion o f the distal left middle cerebral artery segments. 2. Occlusion of the proximal left common carotid artery with reconstitution via collateralization at the carotid bifurcation. 3. Atherosclerotic vascular disease elsewhere detailed above. The ordering physician, Dr. Elías Kearney, was attempted to be notified of the above findings x 2 via [email or web address] with message left between 7 and 7:30 PM without call back.
[2019-03-08] MEDS ORDERED: SYMBICORT 160-4.5 MCG INHALER INHALATION SCH (20:00)
[2019-03-08] MEDS ORDERED: guaiFENesin 600 MG TABLET.ER PO SCH (21:00)
[2019-03-08] MEDS: HEPARIN SODIUM,PORCINE 5,000 UNIT/ML 1 ML VIAL SQ SCH (21:58)
[2019-03-08] MEDS ORDERED: FUROSEMIDE 10 MG/ML 4 ML VIAL IV STA (22:04)
[2019-03-08] MEDS ORDERED: DEXAMETHASONE SOD PHOSPHATE 4 MG/ML 1 ML VIAL IV STA (22:05)
--- NOTE | 2019-03-08 22:29 | XR ---
EXAMINATION TYPE: XR chest 1V portable DATE OF EXAM: 03/08/2019 COMPARISON: Today HISTORY: Short of breath TECHNIQUE: Single frontal view of the chest is obtained. FINDINGS: Heart is normal. Lungs are clear of consolidation. There are no hilar masses. Thoracic aor ta is atheromatous. There are chest leads. IMPRESSION: No active cardiopulmonary disease. No change.
[2019-03-09] MEDS: methylPREDNISolone SOD SUCCI 125 MG/2 ML VIAL IV SCH ×4 (00:02→18:07)
[2019-03-09] MEDS: IPRATROPIUM-ALBUTEROL 3 ML NEB INHALATION SCH ×7 (00:03→23:56)
[2019-03-09] MEDS: INSULIN ASPART (NovoLOG) 100 UNIT/ML VIAL SQ SCH ×4 (00:38→17:45)
[2019-03-09 00:50] LABS: Glucose,Whole Blood 170 mg/dL (75-99)
[2019-03-09 05:05] LABS: Basophils % (A) 0 %; Eosinophils % (A) 0 %; HCT 28.8 % (34.0-46.0); HGB 9.6 gm/dL (11.4-16.0); Lymphocytes # (A) 0.3 k/uL (1.0-4.8); Lymphocytes % (A) 5 %; MCH 31.7 pg (25.0-35.0); MCHC 33.4 g/dL (31.0-37.0); MCV 94.9 fL (80.0-100.0); Mean Platelet Volume 7.2; Monocytes # (A) 0.3 k/uL (0-1.0); Monocytes % (A) 5 %; Neutrophils # (A) 4.5 k/uL (1.3-7.7); Neutrophils % (A) 88 %; Platelet Count 384 k/uL (150-450); RBC 3.04 m/uL (3.80-5.40); RDW 13.2 % (11.5-15.5); WBC 5.1 k/uL (3.8-10.6)
[2019-03-09 05:13] LABS: Potassium 4.3 mmol/L (3.5-5.1)
[2019-03-09] MEDS ORDERED: LEVOTHYROXINE 25 MCG TAB PO SCH (06:30)
[2019-03-09 06:49] LABS: Glucose,Whole Blood 157 mg/dL (75-99)
[2019-03-09] MEDS: HEPARIN SODIUM,PORCINE 5,000 UNIT/ML 1 ML VIAL SQ SCH ×2 (07:56→19:59)
--- NOTE | 2019-03-09 07:57 | US ---
EXAMINATION TYPE: US renals and bladder DATE OF EXAM: 03/09/2019 COMPARISON: NONE CLINICAL HISTORY: ILEANA. ILEANA, exam done portable in ICU. EXAM MEASUREMENTS: Right Kidney: 9.0 x 4.0 x 4.3 cm Left Kidney: 9.8 x 4.5 x 4.3 cm Right Kidney: no hydronephrosis or masses seen Left Kidney: no hydronephrosis or masses seen Bladder: not distended, kelsey catheter Gallbladder: multiple echogenic stones seen There is no evidence for hydronephrosis at this point in time. No nephrolithiasis is seen. No maris s are identified. The urinary bladder is nondistended due to Kelsey catheter placement. IMPRESSION: 1. No hydronephrosis or nephrolithiasis. 2. Incidentally noted cholelithiasis.
[2019-03-09] MEDS: PANTOPRAZOLE 40 MG/10 ML VIAL IVP SCH (08:41)
[2019-03-09] MEDS ORDERED: SCOPOLAMINE 1.5MG/72HR PATCH TRANSDERM SCH (08:45)
[2019-03-09] MEDS: LORazepam 2 MG/ML INJ IV PRN (08:46)
[2019-03-09] MEDS ORDERED: FERROUS SULFATE 325 MG TAB PO SCH (09:00)
[2019-03-09] MEDS ORDERED: LOSARTAN-HCTZ 50-12.5 MG 1 EACH TAB PO SCH (09:00)
[2019-03-09 09:26] LABS: Cholesterol 229 mg/dL (<200); HDL Cholesterol 82 mg/dL (40-60); LDL Cholesterol,Calculated 126 mg/dL (0-99); Triglycerides 106 mg/dL (<150)
[2019-03-09 10:54] VITALS: BMI 18.7
--- NOTE | 2019-03-09 11:54 | P.CNNES ---
History of Present Illness Consult date: 03/09/19 Reason for Consult: CVA, right-sided deficits History of Present Illness: Patient is a 78-year-old female who has no history of CVA, does has advanced COPD, oxygen dependent, came to the hospital yesterday at 12:30 PM by ambulance for shortness of breath off to today's duration, getting worse. Patient was diagnosed with COPD exacerbation and worsening of baseline renal functions and admitted to the floor. Patient at 5:40 PM was noted by family members to be not acting right, with aphasia and right-sided weakness. Stroke code was initiated. Patient underwent stat computed tomography scan of the head with CTA of the head and neck. CT of head showed asymmetric low density in the left parietal lobe in the watershed zone could relate to acute to subacute infarct. Extensive atherosclerosis most notably in the distal internal carotid arteries, supraclinoid portion of the internal carotid arteries and cavernous portions of the internal carotid arteries. Diffuse age-related cerebral atrophy and chronic small vessel ischemic changes noted. Old lacunar injuries of the left lentiform nucleus and right internal. CTA of Head and Neck Revealed Occlusion of the Proximal Left M1 Segment of the Left MCA, Likely Embolic. No Perfusion of the Distal Left MCA Segments. Occlusion of the Proximal Left Common Carotid Artery with Reconstitution Via Collateralization at the Carotid Bifurcation. Atherosclerotic Vascular Disease Elsewhere. Stroke Neurologist Dr. Suarez Was Contacted by the staff, and patient was given TPA 6:47 PM. Patient was considered not a candidate for mechanical thrombectomy by Dr. Suarez as per his note. Patient at present is obtunded, not following commands. Please refer to examination below. Patient's EKG shows sinus tachycardia with right atrial enlargement. Septal infarct age undetermined. Chest x-ray showed no acute cardiopulmonary disease. Patient's daughter was present, who states that patient has hypertension and possible hyperlipidemia, hypothyroidism, no diabetes. She also has smoked 1 p ack per day since she was a teenager, significantly cut back once she was diagnosed with COPD requiring oxygen 6 or 7 years ago. No previous history of strokes TIAs or any history of atrial fibrillation. Patient does not take any antiplatelet medication at home. Patient's daughter also mentions that patient has very limited activity because of her significant shortness of breath. She uses walker for ambulation because of breathing difficulty. She had fell a few times. Her mentation otherwise is fine at baseline. Review of Systems ROS unobtainable: due to mental status Past Medical History Past Medical History: Asthma, COPD, Hypertension Additional Past Medical History / Comment(s): BRONCHITIS, HOME O2 3 LITERS N/C, PNE VACCINE AFTER AGE 66-NOT SURE OF DATE. falls with "cracked hip" no surgery. History of Any Multi-Drug Resistant Organisms: None Reported Past Surgical History: Orthopedic Surgery Additional Past Surgical History / Comment(s): RT ROTATOR CUFF, right toe amputation (melanoma in toenail) Past Anesthesia/Blood Transfusion Reactions: No Reported Reaction Past Psychological History: No Psychological Hx Reported Smoking Status: Former smoker Past Alcohol Use History: None Reported Past Drug Use History: None Reported - Past Family History Mother Family Medical History: CVA/TIA Additional Family Medical History / Comment(s): AT AGE 88 Father Family Medical History: Myocardial Infarction (MD) Additional Family Medical History / Comment(s): OF MD AT AGE 52 Medications and Allergies Home Medications Medication Instructions Recorded Confirmed Type Budesonide/Formoterol Fumarate 2 puff INHALATION RT-BID 08/05/17 03/08/19 History [Symbicort 160-4.5 Mcg Inhaler] predniSONE 5 mg PO DAILY 08/05/17 03/08/19 History Losartan-Hctz 50-12.5 mg [Hyzaar 1 tab PO DAILY 08/31/18 03/08/19 History 50-12.5] Ergocalciferol [Vitamin D2 50,000 unit PO SA 02/01/19 03/08/19 History (DRISDOL)] Ferrous Sulfate [Iron (65 MG 325 mg PO DAILY 02/01/19 03/08/19 History Elemental)] Ipratropium-Albuterol Nebulize 3 ml INHALATION RT-QID PRN 02/01/19 03/08/19 History [Duoneb 0.5 mg-3 mg/3 ml Soln] Levothyroxine Sodium [Synthroid] 25 mcg PO DAILY 02/01/19 03/08/19 History Albuterol Inhaler [Ventolin Hfa 2 puff INHALATION RT-Q6H PRN 03/08/19 03/08/19 History Inhaler] Allergies Allergy/AdvReac Type Severity Reaction Status Date / Time codeine AdvReac Nausea Verified 03/08/19 14:57 formoterol [From Perforomist] AdvReac Rapid Verified 03/08/19 14:57 Heart Rate Physical Examination - Vital Signs Vital Signs: Vital Signs Temp Pulse Resp BP BP Pulse Ox 03/09/19 10:30 96 32 H 106/56 95 03/09/19 10:00 98 28 H 112/54 94 L 03/09/19 09:30 102 H 35 H 136/89 96 03/09/19 09:00 109 H 38 H 141/65 95 03/09/19 08:45 96 03/09/19 08:35 97 03/09/19 08:30 90 30 H 133/68 97 03/09/19 08:00 92 32 H 138/81 96 03/09/19 07:30 100 32 H 138/99 93 L 03/09/19 07:00 92 30 H 134/84 95 03/09/19 06:30 94 33 H 131/73 94 L 03/09/19 06:00 100 28 H 124/84 96 03/09/19 05:30 96 31 H 125/61 97 03/09/19 05:00 100 32 H 137/67 96 03/09/19 04:30 106 H 24 130/92 96 03/09/19 04:00 98.3 F 101 H 22 136/65 96 03/09/19 03:55 103 H 03/09/19 03:43 98 03/09/19 03:30 87 25 H 133/69 96 03/09/19 03:00 91 28 H 123/75 95 03/09/19 02:30 89 26 H 146/61 94 L 03/09/19 02:00 96 70 H 131/68 87 L 03/09/19 01:30 93 28 H 147/69 94 L 03/09/19 01:00 94 20 136/60 95 03/09/19 00:30 93 27 H 153/65 96 03/09/19 00:13 98 03/09/19 00:10 92 25 H 108/61 98 03/09/19 00:03 93 03/09/19 00:00 97.4 F L 92 20 139/86 96 03/08/19 23:45 89 20 149/102 94 L 03/08/19 23:30 92 25 H 140/72 95 03/08/19 23:15 99 9 L 151/84 96 03/08/19 23:00 98 19 151/68 95 03/08/19 22:45 106 H 32 H 162/87 92 L 03/08/19 22:30 105 H 36 H 131/74 94 L 03/08/19 22:15 101 H 31 H 150/86 92 L 03/08/19 22:00 110 H 36 H 136/70 92 L 03/08/19 21:45 105 H 35 H 139/41 96 03/08/19 21:40 100 03/08/19 21:30 96 32 H 147/80 96 03/08/19 21:28 100 03/08/19 21:15 93 25 H 149/81 96 03/08/19 21:00 102 H 34 H 182/88 96 03/08/19 20:45 105 H 37 H 135/80 94 L 03/08/19 20:30 103 H 34 H 159/77 93 L 03/08/19 20:15 104 H 36 H 151/115 93 L 03/08/19 20:00 97.6 F 101 H 26 H 140/82 93 L 03/08/19 19:59 97.6 F 03/08/19 19:55 103 H 36 H 140/82 94 L 03/08/19 19:50 101 H 38 H 165/84 93 L 03/08/19 19:45 103 H 36 H 165/84 94 L 03/08/19 19:40 100 35 H 141/65 94 L 03/08/19 19:35 101 H 34 H 141/65 93 L 03/08/19 19:30 102 H 36 H 149/73 94 L 03/08/19 19:25 101 H 30 H 149/73 93 L 03/08/19 19:20 94 36 H 171/88 94 L 03/08/19 19:15 103 H 25 H 171/88 94 L 03/08/19 19:10 98 34 H 126/92 94 L 03/08/19 19:05 103 H 19 145/73 93 L 03/08/19 19:00 112 H 26 H 159/74 95 03/08/19 18:59 98.0 F 98 34 H 159/74 94 L 03/08/19 18:55 104 H 33 H 159/74 93 L 03/08/19 18:50 101 H 40 H 115/97 94 L 03/08/19 18:45 111 H 26 H 135/59 92 L 03/08/19 18:40 97.8 F 101 H 25 H 135/59 93 L 03/08/19 17:48 102 H 24 129/59 03/08/19 17:46 102 H 24 129/59 03/08/19 17:40 16 132/63 95 03/08/19 16:28 106 H 03/08/19 16:19 104 H 03/08/19 16:18 24 132/63 97 03/08/19 14:37 124/82 03/08/19 13:37 121/71 03/08/19 13:30 119/58 03/08/19 13:09 118 H 03/08/19 13:00 139/69 03/08/19 12:55 112 H 41 H 03/08/19 12:37 119/58 03/08/19 12:36 139/69 03/08/19 12:32 98 F 110 H 42 H 139/69 95 Intake and Output 03/08/19 03/09/19 03/09/19 22:59 06:59 14:59 Intake Total 640 800 300 Output Total 1435 145 Balance 640 -635 155 Intake: IV 300 200 0.9 bolus 300 Sodium Chloride 0.9% 1, 200 000 ml @ 100 mls/hr IV . Q10H STA Rx#:[id number] Intake, IV Titration 340 800 100 Amount Alteplase 40 mg In Empty 40 Bag 1 bag @ 40 mls/hr IV ONCE STA Rx#:[id number] Sodium Chloride 0.9% 1, 300 800 100 000 ml @ 100 mls/hr IV . Q10H STA Rx#:[id number] Output: Urine 1435 145 Other: Voiding Method Incontinent Indwelling Catheter Indwelling Catheter # Voids 1 Weight 49.895 kg 48 kg 48 kg On examination patient is an elderly female, who is obtunded, not following commands. She sometimes squeezes her left hand, but otherwise does not consistently follow directions. She has BiPAP on. Her gaze is midline, pupils are round and reacting, but her head is slightly deviated to the right. Her right arm is flaccid. Her right leg she moves to painful stimulus as good as the left. She moves her left arm spontaneously, and sometimes non- purposefully, randomly. Patient has a Babinski on the left. She has amputated big toe on the right from previous melanoma surgery. Reflexes are symmetric. Patient has decreased sensation on the right, due to lack of withdrawal on the right. Results Her total cholesterol is 229, LDL 126, HDL 82 and triglycerides 106. Her last hemoglobin A1c 4.7 on 01/06/2017. - Laboratory Findings CBC and BMP: 03/09/19 04:46 03/09/19 04:43 Abnormal Lab Findings: Abnormal Labs 03/08/19 03/08/19 03/08/19 12:40 12:40 13:55 RBC 3.38 L Hgb 11.0 L Hct 32.0 L Plt Count 489 H Lymphocytes # 0.5 L ABG pH 7.32 L ABG pCO2 55 H ABG pO2 118 H ABG HCO3 28 H ABG Total CO2 30 H ABG O2 Saturation 99.1 H BUN 46 H Creatinine 2.00 H Glucose 167 H POC Glucose (mg/dL) Cholesterol LDL Cholesterol, Calc HDL Cholesterol 03/08/19 03/08/19 03/08/19 17:43 17:59 17:59 RBC 3.24 L Hgb 10.3 L Hct 31.1 L Plt Count Lymphocytes # 0.1 L ABG pH ABG pCO2 ABG pO2 ABG HCO3 ABG Total CO2 ABG O2 Saturation BUN 48 H Creatinine 2.02 H Glucose 173 H POC Glucose (mg/dL) 190 H Cholesterol LDL Cholesterol, Calc HDL Cholesterol 03/08/19 03/09/19 03/09/19 18:00 00:04 04:43 RBC Hgb Hct Plt Count Lymphocytes # ABG pH 7.32 L ABG pCO2 54 H ABG pO2 113 H ABG HCO3 28 H ABG Total CO2 29 H ABG O2 Saturation 98.2 H BUN 52 H Creatinine 1.60 H Glucose 137 H POC Glucose (mg/dL) 170 H Cholesterol LDL Cholesterol, Calc HDL Cholesterol 03/09/19 03/09/19 03/09/19 04:43 04:46 06:37 RBC 3.04 L Hgb 9.6 L Hct 28.8 L Plt Count Lymphocytes # 0.3 L ABG pH ABG pCO2 ABG pO2 ABG HCO3 ABG Total CO2 ABG O2 Saturation BUN Creatinine Glucose POC Glucose (mg/dL) 157 H Cholesterol 229 H LDL Cholesterol, Calc 126 H HDL Cholesterol 82 H Assessment and Plan Assessment: * 78-year-old female admitted yesterday at 12:30 PM for COPD exacerbation, but has developed an acute ischemic stroke involving the left MCA vascular territory at 5:30 PM, while in the hospital, status post TPA. Patient was considered not a candidate for mechanical thrombectomy. She continues to be obtunded there with very high NIH stroke scale, likely indicating a large stroke. * Hypertension * Hyperlipidemia * Advanced COPD, oxygen dependent * X tobacco use. * Hypothyroidism Plan: * Patient probably has a large ischemic stroke. Patient not a candidate for mechanical thrombectomy. * We will check stat MRI of the brain to evaluate for extent of the stroke. MRA of head to evaluate for patency of intracranial vasculature post-TPA. * Patient will also undergo repeat computed tomography scan of the head at around 7 PM to follow-up on TPA to rule out any hemorrhage. * We will check 2-D echo with bubble study to evaluate for PFO. * Follow post-TPA orders. No anticoagulants, or antiplatelets for 24 hours post-TPA. * Discussed with patient's family in detail and answered questions. Patient at present is DO NOT RESUSCITATE and DO NOT INTUBATE.
[2019-03-09 11:58] LABS: Glucose,Whole Blood 157 mg/dL (75-99)
--- NOTE | 2019-03-09 12:40 | CONS ---
CONSULTATION PULMONARY/CRITICAL CARE CONSULTATION: DATE OF CONSULTATION: March 09, 2019 This is a 78-year-old female who apparently was seen in the emergency room on the . She came in with complaints of shortness of breath. Talking to her daughter, who works here in housekeeping, she apparently had not been doing well at home. She had been very sleepy and lethargic. She has been very short of breath and thought to be dehydrated because she was not eating or drinking. She really has not been feeling well for a couple days prior to admission, but things got worse on Saturday and finally on Saturday, encouraged the family to bring her into the hospital to be evaluated. She was seen in the ER. She apparently presented with shortness of breath. The patient apparently denied other complaints including chest pain or chest discomfort. There is no fever or chills. There was no cough and no phlegm production. Anyway, the patient was admitted to the floor. A code stroke was called on the patient yesterday at 5:48 p.m. and she received tPA at 7 p.m. for a left middle cerebral artery occlusion. Unfortunately, she has got a very dense paralysis/paresis on the right side of her body with right facial droop. She is not particularly responsive. I had a long discussion with the family. They would like her to be a DNR. They might even consider comfort measures. Anyway, the patient is getting 2 L of O2 by nasal cannula. She has been on and off BiPAP at 12 and 5 and 35%. Her IV is 0.9 at 100 mL an hour. The patient is a NO CODE. She has been a NO CODE just from the standpoint of her severe COPD. Her overall condition is very poor. HOME MEDICATIONS: Her home medications are reviewed. She is on ProAir HFA, Symbicort, prednisone 5 mg a day, Hyzaar, vitamin D2, iron, DuoNeb and Synthroid. Prednisone apparently was previously at 10 mg a day. ALLERGIES: Allergies are CODEINE and PERFOROMIST. MEDICAL HISTORY: Medical history includes COPD, asthma, hypertension, chronic hypoxemic respiratory failure, chronic bronchitis, pneumonia, and a hip fracture, not requiring any surgery. SURGICAL HISTORY: Surgical history includes right rotator cuff surgery, right toe amputation secondary to melanoma in her toenail. SOCIAL HISTORY: Positive for previous heavy tobacco use. No alcohol use or illicit drug use. FAMILY HISTORY: Positive for a mother with stroke who at age 88. Father has a history of myocardial infarction and at an early age of 52. REVIEW OF SYSTEMS: Could not be obtained. According to the ER kayla, the patient apparently came into the emergency room with complaints of shortness of breath, but talking to the daughters, she had not been feeling well for a couple days prior to admission, had been acting strange, not eating or drinking, very sleepy and very short of breath. PHYSICAL EXAMINATION: VITAL SIGNS: Current vital signs are reviewed. Temperature is 98.3, heart rate is 109, respiratory rate 38, blood pressure 141/65, mean 90, saturations are 95% on BiPAP. GENERAL: Appears in no acute distress. The patient is nonverbal. She has got some upper airway congestion. She has got a right facial droop and significant weakness/paralysis on the right side of her body. HEENT: Examination is grossly unremarkable. Mucous membranes are dry. NECK: Supple. No adenopathy or thyromegaly. Neck veins are flat. CARDIOVASCULAR: Examination reveals regular rhythm and rate. She is a bit tachycardic at 105 beats per minute. It is sinus rhythm. LUNGS: Reveal diffuse coarse rhonchi. No wheezes. Breath sounds equal. ABDOMEN: Soft. Bowel sounds are not noted. EXTREMITIES: Are intact. She has got an amputation of the right great toe. She appears not to be able to move the right side. SKIN: Without rash. NEUROLOGIC: Examination is difficult to assess but she does have right facial droop and paralysis/paresis on the right side of her body. LAB DATA: Current lab data are reviewed. White count 5.1, hemoglobin 9.6, hematocrit 28.8, platelet count 384,000. Sodium 140, potassium 4.3 chloride 102, CO2 is 27. Anion gap 11. BUN and creatinine were 52 and 1.60. Cholesterol was 229. A chest x-ray showed changes just of COPD. No active disease noted. Renal ultrasound showed no hydronephrosis or kidney stones. A brain CT demonstrated an asymmetric low-density lesion in the left parietal lobe which was consistent with either acute subacute infarct. She has significant and extensive atherosclerotic changes in the distal internal carotid arteries as well as diffuse age-related cerebral atrophy and chronic small-vessel ischemic changes. There is an old lacunar injury left lentiform nucleus and right internal capsule. Angiography CT shows occlusion of the proximal left M1 middle cerebral artery segment, likely embolic in nature with no perfusion in the distal left middle cerebral artery segment. She also has occlusion of the proximal left common carotid artery with reconstitution via collateralization at the carotid bifurcation. MEDICATIONS: Current medications are reviewed. ASSESSMENT: 1. Status post ischemic infarct in the left middle cerebral artery distribution, status post tPA. 2. Dense right-sided hemiparesis/plegia. 3. History of severe end-stage chronic obstructive pulmonary disease with chronic hypoxemic respiratory failure. 4. History of hypertension. 5. History of vitamin D deficiency. 6. History of hypothyroidism. 7. Previous history of heavy tobacco use. 8. Status post right great toe amputation secondary to melanoma. PLAN: The patient is in bad shape and the family realizes that. They do not want her to be intubated or resuscitated. They are not ready for comfort measures at this time. Medications are reviewed. Prognosis is poor. We will continue to follow. She did receive tPA. There has been no significant recovery at this time. MMODL / IJN: [id number] /
--- NOTE | 2019-03-09 13:34 | ECHOF ---
Referral Reason:stroke MEASUREMENTS -------- HEIGHT: 160.0 cm WEIGHT: 47.6 kg BP: IVSd: 0.9 cm (0.6 - 1.1) LVIDd: 3.7 cm (3.9 - 5.3) LVPWd: 1.2 cm (0.6 - 1.1) IVSs: 1.7 cm LVIDs: 1.6 cm LVPWs: 1.7 cm Ao Diam: 2.6 cm (2.0 - 3.7) AV Cusp: 1.5 cm (1.5 - 2.6) LA Diam: 2.5 cm (2.7 - 3.8) MV EXCURSION: 14.382 mm (> 18.000) MV EF SLOPE: 47 mm/s (70 - 150) EPSS: 0.5 cm MV E Emir: 0.76 m/s MV DecT: 172 ms MV A Emir: 0.66 m/s MV E/A Ratio: 1.14 RAP: 5.00 mmHg RVSP: 11.68 mmHg FINDINGS -------- Sinus rhythm. This was a technically adequate study. The left ventricular size is normal. There is mild concentric left ventricular hypertrophy. Overa ll left ventricular systolic function is normal with, an EF between 55 - 60 %. The right ventricle is normal in size. The left atrial size is normal. The right atrial size is normal. The aortic valve is trileaflet and appears structurally normal. The mitral valve is normal. There is trace mitral regurgitation. The tricuspid valve appears structurally normal. Trace tricuspid regurgitation present. Right scooyb tricular systolic pressure is normal at < 35 mmHg. There is no pulmonic regurgitation present. The aortic root size is normal. Normal inferior vena cava with normal inspiratory collapse consistent with estimated right atrial pre ssure of 5 mmHg. There is a small, generalized pericardial effusion present. CONCLUSIONS -------- 1. Sinus rhythm. 2. This was a technically adequate study. 3. The left ventricular size is normal. 4. There is mild concentric left ventricular hypertrophy. 5. Overall left ventricular systolic function is normal with, an EF between 55 - 60 %. 6. The right ventricle is normal in size. 7. The left atrial size is normal. 8. The right atrial size is normal. 9. The aortic valve is trileaflet and appears structurally normal. 10. The mitral valve is normal. 11. There is trace mitral regurgitation. 12. The tricuspid valve appears structurally normal. 13. Trace tricuspid regurgitation present. 14. Right ventricular systolic pressure is normal at < 35 mmHg. 15. There is no pulmonic regurgitation present. 16. The aortic root size is normal. 17. Normal inferior vena cava with normal inspiratory collapse consistent with estimated right atrial pressure of 5 mmHg. 18. There is a small, generalized pericardial effusion present. POULTRY BONER: Suzan Davis RDCS
--- NOTE | 2019-03-09 16:08 | CT ---
"EXAMINATION TYPE: CT brain wo con DATE OF EXAM: 03/09/2019 COMPARISON: 03/08/2016 INDICATION: Follow up scan per RN DLP: 1158.4 mGycm, Automated exposure control for dose reduction was used. CONTRAST: None CT of the brain is performed utilizing 3 mm thick sections through the posterior fossa and 3 mm thick sections through the remaining calvarium. Study is performed within 24 hours of arrival to the hosp ital. No abnormal hyperdensity is present to suggest an acute intracranial hemorrhage. No mass lesion is evident. Large left middle cerebral artery infarct is evident. There is some mild compression of the lateral v entricle. No midline shift is evident. There is effacement of sulci. This extends into the inferior f rontal region and temporal lobe into the watershed of the parietal-occipital region. Small lacunar infarct may be in the right basal ganglion. Ventricles and sulci are otherwise appropriate for the patient age. Paranasal sinuses and mastoid air cells within the [id number] are clear. IMPRESSIONS: 1. Large left middle cerebral artery distribution infarct with mild effacement of the left lateral ventricle and adjacent sulci. A [place] level critical message alert has been initiated for Maria A Kelley via the [employer] | Cri tical Results System on 03/09/2019 4:05 PM. This message alert has been sent to Maria A Kelley via the preferences provided by the clinician for the receipt of Radiology Critical Findings. Message ID [id number]."
[2019-03-09 17:00] LABS: Glucose,Whole Blood 143 mg/dL (75-99)
[2019-03-09] MEDS: HYDROmorphone 0.5 MG/0.5 ML SYRINGE IVP PRN (18:07)
--- NOTE | 2019-03-09 18:09 | P.PN ---
Subjective Progress Note Date: 03/09/19 Principal diagnosis: shortness of breath Patient is a 78-year-old female past medical history of COPD with chronic respiratory failure on 2 L nasal cannula and is steroid-dependent, dementia, and hypothyroidism who presented to the emergency Department complaints of shortness of breath. In the ER she initially had been on BiPAP therapy. Initial evaluation showed possible acute exacerbation of COPD, creatinine of 2, BUN of 46. He was initially admitted to the selective care floor. Shortly after admission she developed having right-sided weakness and mental status changes. A code stroke was called. She emergently underwent a head CT and a CTA which showed an occlusion in the MCA. Neuro mailroom coordinator was called and TPA Was Administered and the Patient Was Admitted to the ICU. Patient seen and examined at bedside. She is not currently following commands. She is moaning and moving about the bed area she has withdrawal to pain in all 4 extremities. Family present at bedside. Required Ativan secondary to agitation earlier today. Objective - Vital Signs Vital signs: Vital Signs Temp 97.7 F 03/09/19 12:00 Pulse 95 03/09/19 17:30 Resp 29 H 03/09/19 16:00 BP 132/62 03/09/19 16:00 Pulse Ox 94 L 03/09/19 16:00 Intake & Output 03/08/19 03/09/19 03/09/19 18:59 06:59 18:59 Intake Total 1440 1000 Output Total 1435 475 Balance 5 525 Weight 49.895 kg 48 kg 48 kg Intake: IV 300 900 0.9 bolus 300 Sodium Chloride 0.9% 1, 900 000 ml @ 100 mls/hr IV . Q10H STA Rx#:[id number] Intake, IV Titration 1140 100 Amount Alteplase 40 mg In Empty 40 Bag 1 bag @ 40 mls/hr IV ONCE STA Rx#:[id number] Sodium Chloride 0.9% 1, 1100 100 000 ml @ 100 mls/hr IV . Q10H STA Rx#:[id number] Output: Urine 1435 475 Other: Voiding Method Indwelling Catheter Indwelling Catheter # Voids 1 - Exam General: non toxic, no distress, appears at stated age Derm: warm, dry Head: atraumatic, normocephalic, symmetric Eyes: EOMI, no lid lag, anicteric sclera Mouth: no lip lesion, mucus membranes moist Cardiovascular: S1S2 reg, no murmur, positive posterior tibial pulse bilateral, Lungs: Decreased breath sounds bilateral, no rhonchi, no rales , no accessory muscle use, on vent Abdominal: soft, nontender to palpation, no guarding, no appreciable organomegaly Ext: no gross muscle atrophy, no edema, no contractures Neuro: Currently on BiPAP therapy, not moving extremities independently, withdrawal to pain in all 4 extremities, pupils sluggishly reactive to light on the left and briskly responsive on the right, not following commands Psych: Lethargic had just received medications. - Labs CBC & Chem 7: 03/09/19 04:46 03/09/19 04:43 Labs: Abnormal Lab Results - Last 24 Hours (Table) 03/08/19 03/08/19 03/08/19 Range/Units 17:59 17:59 18:00 RBC 3.24 L (3.80-5.40) m/uL Hgb 10.3 L (11.4-16.0) gm/dL Hct 31.1 L (34.0-46.0) % Lymphocytes # 0.1 L (1.0-4.8) k/uL ABG pH 7.32 L (7.35-7.45) ABG pCO2 54 H (35-45) mmHg ABG pO2 113 H (83-108) mmHg ABG HCO3 28 H (21-25) mmol/L ABG Total CO2 29 H (19-24) mmol/L ABG O2 Saturation 98.2 H (94-97) % BUN 48 H (7-17) mg/dL Creatinine 2.02 H (0.52-1.04) mg/dL Glucose 173 H (74-99) mg/dL POC Glucose (mg/dL) (75-99) mg/dL Cholesterol (<200) mg/dL LDL Cholesterol, Calc (0-99) mg/dL HDL Cholesterol (40-60) mg/dL 03/09/19 03/09/19 03/09/19 Range/Units 00:04 04:43 04:43 RBC (3.80-5.40) m/uL Hgb (11.4-16.0) gm/dL Hct (34.0-46.0) % Lymphocytes # (1.0-4.8) k/uL ABG pH (7.35-7.45) ABG pCO2 (35-45) mmHg ABG pO2 (83-108) mmHg ABG HCO3 (21-25) mmol/L ABG Total CO2 (19-24) mmol/L ABG O2 Saturation (94-97) % BUN 52 H (7-17) mg/dL Creatinine 1.60 H (0.52-1.04) mg/dL Glucose 137 H (74-99) mg/dL POC Glucose (mg/dL) 170 H (75-99) mg/dL Cholesterol 229 H (<200) mg/dL LDL Cholesterol, Calc 126 H (0-99) mg/dL HDL Cholesterol 82 H (40-60) mg/dL 03/09/19 03/09/19 03/09/19 Range/Units 04:46 06:37 11:45 RBC 3.04 L (3.80-5.40) m/uL Hgb 9.6 L (11.4-16.0) gm/dL Hct 28.8 L (34.0-46.0) % Lymphocytes # 0.3 L (1.0-4.8) k/uL ABG pH (7.35-7.45) ABG pCO2 (35-45) mmHg ABG pO2 (83-108) mmHg ABG HCO3 (21-25) mmol/L ABG Total CO2 (19-24) mmol/L ABG O2 Saturation (94-97) % BUN (7-17) mg/dL Creatinine (0.52-1.04) mg/dL Glucose (74-99) mg/dL POC Glucose (mg/dL) 157 H 157 H (75-99) mg/dL Cholesterol (<200) mg/dL LDL Cholesterol, Calc (0-99) mg/dL HDL Cholesterol (40-60) mg/dL 03/09/19 Range/Units 16:49 RBC (3.80-5.40) m/uL Hgb (11.4-16.0) gm/dL Hct (34.0-46.0) % Lymphocytes # (1.0-4.8) k/uL ABG pH (7.35-7.45) ABG pCO2 (35-45) mmHg ABG pO2 (83-108) mmHg ABG HCO3 (21-25) mmol/L ABG Total CO2 (19-24) mmol/L ABG O2 Saturation (94-97) % BUN (7-17) mg/dL Creatinine (0.52-1.04) mg/dL Glucose (74-99) mg/dL POC Glucose (mg/dL) 143 H (75-99) mg/dL Cholesterol (<200) mg/dL LDL Cholesterol, Calc (0-99) mg/dL HDL Cholesterol (40-60) mg/dL Assessment and Plan Assessment: 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 -Case discussed with neurology -Aspirin, will need rectal -Statin once able to swallow - on steroids - all oral medications on hold Acute exacerbation of COPD -Continue with steroids, bronchodilators, antibiotics - Pulmonary hygiene Acute on chronic hypoxic hypercapnic respiratory failure -Treatment as above HTN - follow BP - Permissive HTN HLD - statin if able to swallow. Hypothyrodism - unable to have synthroid due to mentation, if remains sedate then transition to IV Poor overall discussed with family poor overall prognosis. Patient is a DNR. Family has started asking the window caser about hospice. DVT prophylaxis: resume heparin 24 hours after TPA Discussed with: Family, nursing, neurology Anticipated discharge: undetermined Anticipated discharge place: undetermined A total of 45 minutes was spent on the care of this complex patient more than 50% of the time was spent in counseling and care coordination.
[2019-03-10] MEDS: HYDROmorphone 0.5 MG/0.5 ML SYRINGE IVP PRN ×2 (00:01→08:48)
[2019-03-10] MEDS: methylPREDNISolone SOD SUCCI 125 MG/2 ML VIAL IV SCH ×3 (00:02→12:05)
[2019-03-10 00:12] LABS: Glucose,Whole Blood 174 mg/dL (75-99)
[2019-03-10] MEDS: INSULIN ASPART (NovoLOG) 100 UNIT/ML VIAL SQ SCH ×3 (00:16→12:04)
[2019-03-10] MEDS: IPRATROPIUM-ALBUTEROL 3 ML NEB INHALATION SCH ×3 (03:23→12:35)
[2019-03-10 05:28] LABS: Basophils % (A) 0 %; Eosinophils % (A) 0 %; HCT 28.4 % (34.0-46.0); HGB 9.4 gm/dL (11.4-16.0); Lymphocytes # (A) 0.2 k/uL (1.0-4.8); Lymphocytes % (A) 3 %; MCHC 33.1 g/dL (31.0-37.0); MCV 96.6 fL (80.0-100.0); Mean Platelet Volume 7.1; Monocytes # (A) 0.3 k/uL (0-1.0); Monocytes % (A) 6 %; Neutrophils # (A) 5.1 k/uL (1.3-7.7); Neutrophils % (A) 90 %; Platelet Count 393 k/uL (150-450); RBC 2.94 m/uL (3.80-5.40); RDW 13.2 % (11.5-15.5); WBC 5.7 k/uL (3.8-10.6)
[2019-03-10 05:40] LABS: Calcium 9.1 mg/dL (8.4-10.2); Potassium 4.5 mmol/L (3.5-5.1)
[2019-03-10 05:49] LABS: Glucose,Whole Blood 159 mg/dL (75-99)
[2019-03-10] MEDS ORDERED: SODIUM CHLORIDE 0.9% 1,000 ML IV ONE (07:23)
--- NOTE | 2019-03-10 08:03 | XR ---
EXAMINATION TYPE: XR chest 1V portable DATE OF EXAM: 03/10/2019 COMPARISON: 03/08/2019 HISTORY: Shortness of breath TECHNIQUE: Single frontal view of the chest is obtained. FINDINGS: There is no focal air space opacity, pleural effusion, or pneumothorax seen. The cardiac silhouette size is within normal limits. The osseous structures are intact. Atherosclerotic change aorta. Diffuse osteopenia with arthropathy shoulders. No overt failure. Curvature the spine noted. IMPRESSION: No acute process.
[2019-03-10] MEDS: PANTOPRAZOLE 40 MG/10 ML VIAL IVP SCH (08:08)
[2019-03-10] MEDS: LORazepam 2 MG/ML INJ IV PRN ×2 (08:17→15:08)
--- NOTE | 2019-03-10 09:32 | PN ---
PROGRESS NOTE PULMONARY/CRITICAL CARE PROGRESS NOTE: DATE OF SERVICE: March 10, 2019 This is a 78-year-old female that we saw yesterday in consultation. She presented to the emergency room on the . She apparently was complaining of shortness of breath. Her daughter works here, her name is Alen and she works in housekeeping. She states her mother had not been feeling well for a couple days prior to admission and was acting very strange, as well as being very sleepy and lethargic. She was thought to be dehydrated, which is why they brought her into the emergency room. She was admitted on Saturday through the emergency room. Unfortunately, a code stroke was called at 5:48 p.m. and she received tPA at 7 p.m. for a left middle cerebral artery occlusion. She has a very dense paralysis/paresis on the right side of her body and her mental status has been very poor, and she has a right facial droop. The patient has not really shown any improvement whatsoever. She is a DNR. The family is giving some consideration to comfort measures. Apparently, the patient has been on BiPAP at 12 and 5 and 30% all night. She is receiving an IV of saline at 50 mL an hour. I did have another conversation with the daughter Alen today in the room. Again, they understand that overall prognosis is poor. We did have Neurology come and see the patient and their impression was that the patient has significant anoxic brain injury secondary to the CVA. The CVA appears to be more extensive on the followup CT scan of the brain. PHYSICAL EXAMINATION: VITAL SIGNS: Current vital signs are reviewed. Temperature is 98.4, heart rate 68, respiratory rate is climbing up into the mid 30s, blood pressure 119/69 with mean of 85, saturations are 94% on the BiPAP 12, 5 and 30%. She is unresponsive. HEENT: Examination is grossly unremarkable. BiPAP mask in place. NECK: Supple. No neck vein distention. No adenopathy. CARDIOVASCULAR: Examination reveals a heart rate of about 60 beats per minute. S1, S2 normal. Heart sounds are distant. LUNGS: Reveal diffuse coarse rhonchi. Breath sounds equal. ABDOMEN: Soft. Bowel sounds are not noted. EXTREMITIES: Are intact. She does have a missing right great toe from a prior amputation secondary to melanoma. SKIN: Without rash. NEUROLOGIC: Examination is difficult to assess given her current mental status. She does not respond to verbal or painful stimuli. She has profound weakness on the right side of her body from a prior examination. LAB DATA: Lab data is reviewed. White count 5.7, hemoglobin 9.4, hematocrit 28.4, platelet count 393,000. Sodium, potassium, chloride, CO2 all normal. Anion gap is normal. BUN and creatinine were 70 and 1.36. Microbiology is currently pending. A chest x-ray done today shows changes of COPD only. A CT scan repeat shows large left middle cerebral artery distribution infarct with mild effacement of the left lateral ventricle and adjacent sulci. Neurology consult is appreciated. MEDICATIONS: Medications are reviewed. She is currently on subcu heparin, Dilaudid p.r.n., insulin p.r.n., updrafts with DuoNeb, Ativan p.r.n., Solu-Medrol, Narcan, Zofran, Protonix, scopolamine patch. ASSESSMENT: 1. Status post ischemic infarct involving a left middle cerebral artery distribution, status post tPA. 2. Dense right-sided hemiparesis/plegia. 3. History of severe end-stage oxygen-dependent chronic obstructive pulmonary disease with chronic hypoxemic respiratory failure. 4. History of benign essential hypertension. 5. History of vitamin D deficiency. 6. History of hypothyroidism. 7. Previous history of heavy tobacco use. 8. Status post right great toe amputations secondary to melanoma. PLAN: I had a long discussion again with the daughter, Alen. She understands the gravity of the situation. She is a DNR. They are giving some consideration to comfort measures. The patient has not made any improvement. Appreciate the repeat CT scan ordered by Neurology and the were neurology consultation. Their impression paints a very poor prognosis for this patient. I agree with this assessment. No additional recommendations are made. We will continue to follow. MMODL / IJN: [id number] /
[2019-03-10] MEDS ORDERED: ASPIRIN 300 MG SUPP RECTAL SCH (11:00)
[2019-03-10] MEDS: HEPARIN SODIUM,PORCINE 5,000 UNIT/ML 1 ML VIAL SQ SCH (11:31)
--- NOTE | 2019-03-10 11:42 | P.PN ---
Subjective Progress Note Date: 03/10/19 Patient was seen for a follow-up. Patient's dose daughters were present today. Patient is not showing any significant clinical improvement. Patient continues to be severely obtunded, aphasia, right hemiplegic. Patient had a follow-up computed tomography scan of head performed yesterday, which revealed a very large stroke involving the entire left MCA vascular territory, with mass effect, but no midline shifting. No hemorrhage. Patient had a 2-D echo performed, which revealed ejection fraction 55-60%. Left atrial size is normal. Objective - Vital Signs Vital signs: Vital Signs Temp 98.4 F 03/10/19 08:00 Pulse 81 03/10/19 10:00 Resp 26 H 03/10/19 10:00 BP 116/60 03/10/19 10:00 Pulse Ox 98 03/10/19 10:00 Intake & Output 03/09/19 03/10/19 03/10/19 18:59 06:59 18:59 Intake Total 7080 540 9059 Output Total 565 465 145 Balance 871 845 2845 Weight 48 kg 50.8 kg Intake: IV 5348 364 8793 0.9 bolus 1000 Sodium Chloride 0.9% 1, 1100 600 50 000 ml @ 100 mls/hr IV . Q10H STA Rx#:[id number] ns 150 Intake, IV Titration 100 Amount Sodium Chloride 0.9% 1, 100 000 ml @ 100 mls/hr IV . Q10H STA Rx#:[id number] Output: Urine 565 465 145 Other: Voiding Method Indwelling Catheter Indwelling Catheter Indwelling Catheter - Exam Patient is significantly obtunded. Patient not opening eyes to calling her name. Pupils are round and reacting. BiPAP machine is on. Patient continues to be right hemiplegic. She moves her left arm sometimes spontaneously, but not to any commands. Patient's plantars are upgoing on the left. Cannot check on the right because of amputated toe on the right. - Labs CBC & Chem 7: 03/10/19 04:39 03/10/19 04:41 Labs: Abnormal Lab Results - Last 24 Hours (Table) 03/09/19 03/09/19 03/10/19 Range/Units 11:45 16:49 00:01 RBC (3.80-5.40) m/uL Hgb (11.4-16.0) gm/dL Hct (34.0-46.0) % Lymphocytes # (1.0-4.8) k/uL BUN (7-17) mg/dL Creatinine (0.52-1.04) mg/dL Glucose (74-99) mg/dL POC Glucose (mg/dL) 157 H 143 H 174 H (75-99) mg/dL 03/10/19 03/10/19 03/10/19 Range/Units 04:39 04:41 05:38 RBC 2.94 L (3.80-5.40) m/uL Hgb 9.4 L (11.4-16.0) gm/dL Hct 28.4 L (34.0-46.0) % Lymphocytes # 0.2 L (1.0-4.8) k/uL BUN 70 H (7-17) mg/dL Creatinine 1.36 H (0.52-1.04) mg/dL Glucose 132 H (74-99) mg/dL POC Glucose (mg/dL) 159 H (75-99) mg/dL Assessment and Plan Assessment: * 78-year-old female admitted 03/08/2019 at 12:30 PM for COPD exacerbation, but has developed an acute ischemic stroke involving the left MCA vascular territory at 5:30 PM, while in the hospital, status post TPA. Patient was co nsidered not a candidate for mechanical thrombectomy. She continues to be obtunded with very high NIH stroke scale, likely indicating a large stroke. * Repeat computed tomography scan of head showed a very large stroke involving the entire distribution of the left MCA. * Hypertension * Hyperlipidemia * Advanced COPD, oxygen dependent * X tobacco use. * Hypothyroidism Plan: * Patient has a very large ischemic stroke involving the entire territory of left MCA. * MRI could not be performed because of patient's respiratory status. MRI not indicated, a computed tomography scan of the head showed the extent of the CVA. * 2-D echo showed no obvious embolic source with EF 55-60% with normal left atrial size. * We will start aspirin 300 mg rectally, to prevent extension of stroke to involve the left MATEO or left BALANCE WEIGHER territory. * Discussed with patient's 2 daughters in detail and answered questions. Patient at present is DO NOT RESUSCITATE and DO NOT INTUBATE.
[2019-03-10 12:15] LABS: Glucose,Whole Blood 143 mg/dL (75-99)
[2019-03-10] MEDS ORDERED: ATROPINE OPHTH SOLN 1% 5ML BTL SUBLINGUAL PRN (14:07)
[2019-03-10] MEDS ORDERED: MORPHINE SULFATE 2 MG/ML SYRINGE IV PRN (14:07)
[2019-03-10 14:11] VITALS: BP 156/74; TEMP 98.3
[2019-03-10] MEDS ORDERED: MORPHINE SULFATE (100 MG/2 ML) 100 MG in SODIUM CHLORIDE 0.9% 100 ML IV SCH (14:15)
[2019-03-10 17:01] VITALS: PULSE 99; RESP 42
--- NOTE | 2019-03-10 20:59 | DS ---
DISCHARGE SUMMARY DATE OF ADMISSION: 03/08/2019. DATE PATIENT : 03/10/2019 Acute stroke. FINAL DIAGNOSES: 1. Acute embolic stroke of left MCA with resultant right-sided deficit. 2. Acute exacerbation of chronic obstructive pulmonary disease. 3. Acute on chronic hypoxic hypercapnic respiratory failure. 4. Essential hypertension. 5. Hypothyroidism. 6. Normocytic anemia, chronic, cause unknown. HOSPITAL COURSE: This is a 78-year-old patient of Dr. Mckee from [facility] who was admitted with shortness of breath. The patient was hypoxic in the ER. On the floor, patient had a CODE STROKE. Right side was weak. The patient continued to deteriorate. Family decided to make the patient comfort care. I spoke to complex case manager earlier today. Family decided to make the patient comfort care and medications for the same. Also spoke to Dr. Finley from Neurology and comfort measures were initiated. The patient later succumbed to the same. On examination earlier, patient was short of breath with congested chest and diminished breath sounds. INVESTIGATIONS: EKG showed sinus tachycardia. CT scan of the brain showed asymmetric low density in the left parietal lobe in the watershed zone. CT angio of the brain showed occlusion of the proximal left M1 middle cerebral artery segment and occlusion of the proximal left common carotid artery with reconstitution via collateral at the bifurcation. Renal ultrasound showed some gallstones. A 2D echo, EF of 55-[address] scan of the brain showed large left middle cerebral artery distribution infarct. CONSULTATION: 1. Dr. Finley from Neurology. 2. Dr. Diop from Pulmonary. Total time spent today was more than 35 minutes. DISPOSITION: Patient . MMODL / IJN: [id number] /
== END 2019-03-10 17:04 | disposition expired | DRG 189 ==
LOC: EC 12:30 → 3SCARD 14:38 → 2SICU 18:37
PROVIDERS: ADMIT Family Medicine; ATTEND Family Medicine
PROC: 3E03317 Introduction of Other Thrombolytic into Peripheral Vein, Percutaneous Approach (ICD-10-PCS; principal; 2019-03-08)
PROC: 5A09457 Assistance with Respiratory Ventilation, 24-96 Consecutive Hours, Continuous Positive Airway Pressure (ICD-10-PCS; 2019-03-08)
DX: J96.21 Acute and chronic respiratory failure with hypoxia (principal); I63.412 Cerebral infarction due to embolism of left middle cerebral artery; R40.2114 Coma scale, eyes open, never, 24 hours or more after hospital admission; R40.2214 Coma scale, best verbal response, none, 24 hours or more after hospital admission; J44.1 Chronic obstructive pulmonary disease with (acute) exacerbation; G81.91 Hemiplegia, unspecified affecting right dominant side; E87.2 Acidosis; G93.1 Anoxic brain damage, not elsewhere classified; N17.9 Acute kidney failure, unspecified; R47.01 Aphasia; R40.2354 Coma scale, best motor response, localizes pain, 24 hours or more after hospital admission; J96.22 Acute and chronic respiratory failure with hypercapnia; Z51.5 Encounter for palliative care; Z66 Do not resuscitate; E03.9 Hypothyroidism, unspecified; E78.5 Hyperlipidemia, unspecified; E86.0 Dehydration; R29.726 NIHSS score 26; F02.80 Dementia in other diseases classified elsewhere, unspecified severity, without behavioral disturbance, psychotic disturbance, mood disturbance, and anxiety; F17.210 Nicotine dependence, cigarettes, uncomplicated; K80.80 Other cholelithiasis without obstruction; G30.9 Alzheimer's disease, unspecified; I11.9 Hypertensive heart disease without heart failure; D64.9 Anemia, unspecified; Z79.51 Long term (current) use of inhaled steroids; I69.392 Facial weakness following cerebral infarction; Z79.52 Long term (current) use of systemic steroids; Z79.890 Hormone replacement therapy; Z82.3 Family history of stroke; Z82.49 Family history of ischemic heart disease and other diseases of the circulatory system; Z85.820 Personal history of malignant melanoma of skin; Z89.411 Acquired absence of right great toe; Z99.81 Dependence on supplemental oxygen; Z89.421 Acquired absence of other right toe(s); Z79.899 Other long term (current) drug therapy; Z88.5 Allergy status to narcotic agent; Z88.8 Allergy status to other drugs, medicaments and biological substances; Z87.01 Personal history of pneumonia (recurrent); Z86.39 Personal history of other endocrine, nutritional and metabolic disease
CPT/HCPCS: 36415; 36600; 70450; 70496; 70498; 71045; 76770; 80048; 80053; 80061; 82805; 83735; 83880; 84484; 85025; 85610; 85730; 93005; 93306; 94640; 94660; 96365; 99291